=== PATIENT | female | born 1930 | race Caucasian/White ===

== ENCOUNTER → 2016-08-28 | Outpatient (REF) | payer MEDICARE ==
[~2016-08-28] MED LIST: /LINE60TA OR; /WARF25TA; ACET65TA; ACET65TA OR; ALOP5TAB; BABY81CH; BENGAY; BENTYL; Bacid OR; CELE10TA OR; CELE20TA; COLA50CA OR; COUMADIN; FURO40TA2; ISOS30BRAN; ISOS30BRAN OR; LEVOXYL25 MCG; LOPR50TA PO; MAALSUS; METO25TA2; METOP; METOPROLOL SUCCINATE PO; MILKSUS; MILKSUS OR; MIRALEX PO; NYSTATIN TOP; POTA10CA2; POTA10CA2 OR; PRIL20CA OR; RANI75TA2; SENN8.6T5; SYNT50TA OR; TYL325 PO; VITAMIN D50000 UNT PO; ZANT150T PO; ZOCO20TA; ZOCO40TA OR; Zemplar PO; fleets enema PR
[2016-08-28 16:29] LABS: MEAN CORPUSCULAR HGB CONC 33.4 g/dl (32.0-36.5); MEAN CORPUSCULAR VOLUME 95.9 fl (80.0-96.0); RED CELL DISTRIBUTION WIDTH 12.6 % (11.5-14.5); WHITE BLOOD COUNT 9.9 K/mm3 (4.0-10.0)
[2016-08-28 16:58] LABS: ALBUMIN 4.2 GM/DL (3.2-5.2); CALCIUM LEVEL 8.8 MG/DL (8.8-10.2); CREATININE FOR GFR 2.12 MG/DL (0.55-1.02); GLOMERULAR FILTRATION RATE 23.5 (>32); PHOSPHORUS LEVEL 4.8 MG/DL (2.5-4.9); POTASSIUM SERUM 4.7 MEQ/L (3.5-5.1)
== END ==
LOC: M SFHCCLAY 13:55
PROVIDERS: ATTEND Family Medicine
DX: N18.4 Chronic kidney disease, stage 4 (severe) (principal)
CPT/HCPCS: 80069; 83970; 85027; G0463

== ENCOUNTER → 2016-12-30 | Outpatient (REF) | payer MEDICARE ==
[2016-12-31 11:33] LABS: MEAN CORPUSCULAR HEMOGLOBIN 33.3 pg (27.0-33.0); MEAN CORPUSCULAR HGB CONC 33.2 g/dl (32.0-36.5); MEAN CORPUSCULAR VOLUME 100.2 fl (80.0-96.0); PLATELET COUNT, AUTOMATED 290 k/mm3 (150-450); RED CELL DISTRIBUTION WIDTH 12.1 % (11.5-14.5); WHITE BLOOD COUNT 10.7 K/mm3 (4.0-10.0)
[2016-12-31 11:47] LABS: ALBUMIN 3.8 GM/DL (3.2-5.2); ALBUMIN/GLOBULIN RATIO 1.31 (1.00-1.93); BILIRUBIN,TOTAL 0.3 MG/DL (0.2-1.0); CALCIUM LEVEL 8.3 MG/DL (8.8-10.2); CREATININE FOR GFR 2.35 MG/DL (0.55-1.02); GLOMERULAR FILTRATION RATE 20.9 (>32); POTASSIUM SERUM 4.8 MEQ/L (3.5-5.1); TOTAL PROTEIN 6.7 GM/DL (6.4-8.2)
[2016-12-31 12:38] LABS: BASOPHILS 1 % (0-4); EOSINOPHILS 3 % (0-5)
== END ==
LOC: M SFHCCLAY 15:14
PROVIDERS: ATTEND Family Medicine
DX: F32.9 Major depressive disorder, single episode, unspecified (principal); N18.4 Chronic kidney disease, stage 4 (severe)
CPT/HCPCS: 80053; 82306; 83970; 84443; 85025; G0463

== ENCOUNTER → 2016-12-31 | Outpatient (REF) | payer MEDICARE | LOC: M SFHCCLAY 16:17 | PROVIDERS: ATTEND Family Medicine | DX: R32 Unspecified urinary incontinence (principal) ==

== ENCOUNTER → 2017-04-21 | Outpatient (REF) | payer MEDICARE, MEDICAID ==
[2017-04-21 20:46] LABS: ALBUMIN 3.9 GM/DL (3.2-5.2); ALBUMIN/GLOBULIN RATIO 1.44 (1.00-1.93); BILIRUBIN,TOTAL 0.5 MG/DL (0.2-1.0); CALCIUM LEVEL 8.3 MG/DL (8.8-10.2); CREATININE FOR GFR 2.41 MG/DL (0.55-1.02); GLOMERULAR FILTRATION RATE 20.3 (>32); POTASSIUM SERUM 4.7 MEQ/L (3.5-5.1); TOTAL PROTEIN 6.6 GM/DL (6.4-8.2)
== END ==
LOC: M SFHCCLAY 11:16
PROVIDERS: ATTEND Family Medicine
DX: N18.4 Chronic kidney disease, stage 4 (severe) (principal)
CPT/HCPCS: 80053; 83880; G0463

== ENCOUNTER → 2017-07-11 | Outpatient (REF) | payer MEDICARE | LOC: M SFHCCLAY 14:05 | PROVIDERS: ATTEND Family Medicine | DX: N18.4 Chronic kidney disease, stage 4 (severe) (principal); E03.9 Hypothyroidism, unspecified ==

== ENCOUNTER → 2017-07-15 | Outpatient (REF) | payer MEDICARE ==
[2017-07-15 11:20] LABS: BASO # 0.2 10^3/uL (0.0-0.2); BASO % 1.1 % (0.0-1.0); EOS # 0.6 10^3/uL (0.0-0.50); EOS % 4.4 % (0.0-3.0); IMMATURE GRANULOCYTE % 0.4 % (0-0); LYMPH # 2.4 10^3/uL (1.5-4.5); MEAN CORPUSCULAR HEMOGLOBIN 32.9 pg (27.0-33.0); MEAN CORPUSCULAR HGB CONC 33.3 g/dl (32.0-36.5); MEAN CORPUSCULAR VOLUME 98.8 fl (80.0-96.0); MONO % 7.9 % (0.0-5.0); NEUTROPHILS # 8.9 10^3/uL (1.8-7.7); NEUTROPHILS % 68.2 % (36.0-66.0); PLATELET COUNT, AUTOMATED 355 10^3/uL (150-450); RED CELL DISTRIBUTION WIDTH 12.1 % (11.5-14.5); WHITE BLOOD COUNT 13.1 10^3/uL (4.0-10.0)
[2017-07-15 11:55] LABS: ALBUMIN 4.3 GM/DL (3.2-5.2); CALCIUM LEVEL 9.2 MG/DL (8.8-10.2); CREATININE FOR GFR 2.43 MG/DL (0.55-1.02); GLOMERULAR FILTRATION RATE 20.1 (>32); PHOSPHORUS LEVEL 3.6 MG/DL (2.5-4.9)
[2017-07-15 12:08] LABS: POTASSIUM SERUM 5.4 MEQ/L (3.5-5.1)
== END ==
LOC: M SFHCCLAY 09:10
PROVIDERS: ATTEND Family Medicine
DX: N18.4 Chronic kidney disease, stage 4 (severe) (principal); E03.9 Hypothyroidism, unspecified

== ENCOUNTER → 2017-10-17 | Outpatient (REF) | payer MEDICARE ==
[2017-10-17 16:48] LABS: BASO # 0.1 10^3/uL (0.0-0.2); BASO % 0.8 % (0.0-1.0); EOS # 0.4 10^3/uL (0.0-0.50); EOS % 3.5 % (0.0-3.0); HEMATOCRIT 38.2 % (36.0-47.0); HEMOGLOBIN 12.4 g/dl (12.0-16.0); IMMATURE GRANULOCYTE % 0.3 % (0-3.0); LYMPH # 2.2 10^3/uL (1.5-4.5); LYMPH % 17.9 % (24.0-44.0); MEAN CORPUSCULAR HGB CONC 32.5 g/dl (32.0-36.5); MEAN CORPUSCULAR VOLUME 98.5 fl (80.0-96.0); MONO # 1.4 10^3/uL (0.0-0.8); NEUTROPHILS # 8.3 10^3/uL (1.8-7.7); NEUTROPHILS % 66.5 % (36.0-66.0); PLATELET COUNT, AUTOMATED 336 10^3/uL (150-450); RED BLOOD COUNT 3.88 10^6/uL (4.00-5.40); RED CELL DISTRIBUTION WIDTH 12.3 % (11.5-14.5); WHITE BLOOD COUNT 12.5 10^3/uL (4.0-10.0)
[2017-10-17 17:08] LABS: ALBUMIN 3.9 GM/DL (3.2-5.2); ALBUMIN/GLOBULIN RATIO 1.22 (1.00-1.93); ALKALINE PHOSPHATASE 91 U/L (45-117); ALT/SGPT 14 U/L (12-78); ANION GAP 8 MEQ/L (8-16); AST/SGOT 12 U/L (7-37); BILIRUBIN,TOTAL 0.4 MG/DL (0.2-1.0); BLOOD UREA NITROGEN 46 MG/DL (7-18); CALCIUM LEVEL 8.7 MG/DL (8.8-10.2); CARBON DIOXIDE LEVEL 24 MEQ/L (21-32); CHLORIDE LEVEL 110 MEQ/L (98-107); CHOLESTEROL LEVEL 154 MG/DL (<200); CHOLESTEROL RISK RATIO 3.142 (<5); CREATININE FOR GFR 2.64 MG/DL (0.55-1.30); FREE T4 0.99 NG/DL (0.76-1.46); GLOMERULAR FILTRATION RATE 18.2 (>32); GLUCOSE, FASTING 98 MG/DL (70-100); HDL CHOLESTEROL 49 MG/DL (>40); NON-HDL-C 105 MG/DL; SODIUM LEVEL 142 MEQ/L (136-145); TOTAL PROTEIN 7.1 GM/DL (6.4-8.2); TRIGLYCERIDES LEVEL 115 MG/DL (<150)
== END ==
LOC: M SFHCCLAY 13:36
DX: N18.4 Chronic kidney disease, stage 4 (severe) (principal); E78.00 Pure hypercholesterolemia, unspecified; E03.9 Hypothyroidism, unspecified
CPT/HCPCS: 83735

== ENCOUNTER → 2017-12-24 | Outpatient (REF) | payer MEDICARE | LOC: M SFHCCLAY 10:09 | DX: N18.4 Chronic kidney disease, stage 4 (severe) (principal) ==

== ENCOUNTER → 2018-01-09 | Outpatient (REF) | payer MEDICARE ==
[2018-01-09 16:48] LABS: BASO # 0.1 10^3/uL (0.0-0.2); BASO % 0.8 % (0.0-1.0); EOS # 0.5 10^3/uL (0.0-0.50); EOS % 3.9 % (0.0-3.0); HEMATOCRIT 38.6 % (36.0-47.0); HEMOGLOBIN 12.5 g/dl (12.0-15.5); IMMATURE GRANULOCYTE % 0.4 % (0-3.0); LYMPH # 2.6 10^3/uL (1.5-4.5); LYMPH % 21.6 % (24.0-44.0); MEAN CORPUSCULAR HEMOGLOBIN 32.4 pg (27.0-33.0); MEAN CORPUSCULAR HGB CONC 32.4 g/dl (32.0-36.5); MONO # 1.3 10^3/uL (0.0-0.8); MONO % 10.8 % (0.0-5.0); NEUTROPHILS # 7.4 10^3/uL (1.8-7.7); NEUTROPHILS % 62.5 % (36.0-66.0); PLATELET COUNT, AUTOMATED 304 10^3/uL (150-450); RED BLOOD COUNT 3.86 10^6/uL (4.00-5.40); WHITE BLOOD COUNT 11.8 10^3/uL (4.0-10.0)
[2018-01-09 17:24] LABS: ALBUMIN 4.2 GM/DL (3.2-5.2); ALKALINE PHOSPHATASE 94 U/L (45-117); ALT/SGPT 22 U/L (12-78); ANION GAP 12 MEQ/L (8-16); AST/SGOT 17 U/L (7-37); BILIRUBIN,TOTAL 0.3 MG/DL (0.2-1.0); BLOOD UREA NITROGEN 35 MG/DL (7-18); CALCIUM LEVEL 8.4 MG/DL (8.8-10.2); CARBON DIOXIDE LEVEL 21 MEQ/L (21-32); CHLORIDE LEVEL 111 MEQ/L (98-107); CREATININE FOR GFR 2.79 MG/DL (0.55-1.30); FREE T4 0.87 NG/DL (0.76-1.46); GLOMERULAR FILTRATION RATE 17.1 (>32); GLUCOSE, FASTING 98 MG/DL (70-100); POTASSIUM SERUM 4.9 MEQ/L (3.5-5.1); SODIUM LEVEL 144 MEQ/L (136-145)
== END ==
LOC: M SFHCCLAY 13:31
DX: N18.4 Chronic kidney disease, stage 4 (severe) (principal); E03.9 Hypothyroidism, unspecified
CPT/HCPCS: 84443

== ENCOUNTER → 2018-07-13 | Outpatient (CLI) | payer MEDICARE ==
--- NOTE | 2018-07-13 20:57 | REP ---
Duplex carotid sonography: History: Right endarterectomy May. Left endarterectomy and under remotely. Comparison study September 12, 2010. Findings: Antegrade flow was observed in both vertebral arteries. Right carotid: The right common carotid artery shows diffuse vessel wall thickening. Arterial wall thickening continues in the bulb and proximal ICA and proximal ECA. The Doppler study demonstrates elevation of systolic and diastolic velocities in the ICA and systolic velocity in the ECA on the right side. Velocity chart right carotid: Right CCA PSV 130 cm/S, right ICA PSV 443, EDV 68, right ECA PSV 343, right ICA/CCA ratio elevated 3.4. Impression: Diffuse somewhat irregular wall thickening in the CCA, bulb, proximal ICA on the right side uncertain significance post recent endarterectomy. There is evidence of mixed plaquing in the bulb and proximal ICA. Stenotic flow velocities are observed consistent with 80 to 99% category narrowing. Similarly elevated peak systolic flow velocities were observed on the 2010 prior study on the right side. Left carotid: There is diffuse vessel wall thickening on the left as well. Mixed plaquing is observed in the left carotid bulb and proximal ICA. Color flow and spectral Doppler interrogation are unremarkable on the left however. Velocity chart left carotid: Left CCA PSV 144 cm/S, left ICA PSV 88, EDV 23, left ECA PSV 69, left ICA/CCA ratio normal 0.6. Impression: 16 to 49% category narrowing in the left ICA by Doppler velocity criteria. Velocities on the left are essentially unchanged. Electronically Signed by Jeffery Armenta MD 07/13/2018 09:05 P
== END ==
LOC: M RAD 14:54
PROVIDERS: ATTEND Surgery
DX: I65.21 Occlusion and stenosis of right carotid artery (principal)

== ENCOUNTER → 2018-08-24 | Outpatient (REF) | payer MEDICARE ==
[2018-08-25 12:04] LABS: ALBUMIN 4.3 GM/DL (3.2-5.2); BILIRUBIN,TOTAL 0.2 MG/DL (0.2-1.0); CALCIUM LEVEL 8.5 MG/DL (8.8-10.2); CREATININE FOR GFR 2.69 MG/DL (0.55-1.30); FREE T4 0.96 NG/DL (0.76-1.46); GLOMERULAR FILTRATION RATE 17.8 (>32); POTASSIUM SERUM 5.2 MEQ/L (3.5-5.1); THYROID STIMULATING HORMONE 3.76 uIU/ML (0.358-3.740); TOTAL PROTEIN 7.1 GM/DL (6.4-8.2)
== END ==
LOC: M SFHCCLAY 15:30
PROVIDERS: ATTEND Family Medicine
DX: N18.4 Chronic kidney disease, stage 4 (severe) (principal); E03.9 Hypothyroidism, unspecified
CPT/HCPCS: 36415; 80053; 84439; 84443; G0463

== ENCOUNTER → 2018-10-16 | Outpatient (REF) | payer MEDICARE ==
[~2018-10-16] MED LIST changes: -/LINE60TA OR; -/WARF25TA; +COUM1TAB18; +ZYVO100T OR
[2018-10-16 17:20] LABS: BASO # 0.1 10^3/uL (0.0-0.2); BASO % 1.3 % (0.0-1.0); EOS # 0.6 10^3/uL (0.0-0.50); EOS % 5.3 % (0.0-3.0); HEMOGLOBIN 12.4 g/dl (12.0-15.5); LYMPH # 2.2 10^3/uL (1.5-4.5); LYMPH % 21.1 % (24.0-44.0); MEAN CORPUSCULAR HEMOGLOBIN 32.3 pg (27.0-33.0); MEAN CORPUSCULAR HGB CONC 31.8 g/dl (32.0-36.5); MEAN CORPUSCULAR VOLUME 101.6 fl (80.0-96.0); MONO # 1.2 10^3/uL (0.0-0.8); MONO % 11.4 % (0.0-5.0); NEUTROPHILS # 6.3 10^3/uL (1.8-7.7); NEUTROPHILS % 60.5 % (36.0-66.0); PLATELET COUNT, AUTOMATED 303 10^3/uL (150-450); RED BLOOD COUNT 3.84 10^6/uL (4.00-5.40); WHITE BLOOD COUNT 10.4 10^3/uL (4.0-10.0)
[2018-10-16 17:23] LABS: BILIRUBIN,TOTAL 0.4 MG/DL (0.2-1.0); CALCIUM LEVEL 8.9 MG/DL (8.8-10.2); CREATININE FOR GFR 2.92 MG/DL (0.55-1.30); FREE T4 0.99 NG/DL (0.76-1.46); GLOMERULAR FILTRATION RATE 16.2 (>32); PTH INTACT 196.3 PG/ML (18.5-88.0); THYROID STIMULATING HORMONE 1.72 uIU/ML (0.358-3.740); TOTAL PROTEIN 6.7 GM/DL (6.4-8.2)
== END ==
LOC: M SFHCCLAY 10:52
PROVIDERS: ATTEND Family Medicine
DX: R53.81 Other malaise (principal); E03.9 Hypothyroidism, unspecified; N18.4 Chronic kidney disease, stage 4 (severe)
CPT/HCPCS: 80053; 83970; 84439; 84443; 85025; G0463

== ENCOUNTER → 2018-12-01 | Outpatient (REF) | payer MEDICARE ==
[2018-12-01 16:48] LABS: CREATININE FOR GFR 2.33 MG/DL (0.55-1.30); POTASSIUM SERUM 4.9 MEQ/L (3.5-5.1)
== END ==
LOC: M SFHCCLAY 09:49
PROVIDERS: ATTEND Family Medicine
DX: N18.4 Chronic kidney disease, stage 4 (severe) (principal)

== ENCOUNTER → 2019-02-22 | Outpatient (REF) | payer MEDICARE | LOC: M SFHCCLAY 12:25 | PROVIDERS: ATTEND Family Medicine | DX: N18.4 Chronic kidney disease, stage 4 (severe) (principal); Z53.8 Procedure and treatment not carried out for other reasons ==

== ENCOUNTER → 2019-03-04 | Outpatient (REF) | payer MEDICARE ==
[2019-03-04 13:56] LABS: ALBUMIN 3.4 GM/DL (3.2-5.2); BILIRUBIN,TOTAL 0.3 MG/DL (0.2-1.0); CALCIUM LEVEL 8.7 MG/DL (8.8-10.2); CREATININE FOR GFR 2.28 MG/DL (0.55-1.30); GLOMERULAR FILTRATION RATE 21.5 (>32); POTASSIUM SERUM 4.3 MEQ/L (3.5-5.1); TOTAL PROTEIN 6.3 GM/DL (6.4-8.2)
== END ==
LOC: M SFHCCLAY 09:36
PROVIDERS: ATTEND Family Medicine
DX: N18.4 Chronic kidney disease, stage 4 (severe) (principal)

== ENCOUNTER 2019-03-12 15:52 | Inpatient (IN) | payer MEDICARE ==
[~2019-03-12] VITALS: Ht 154.9 cm; Wt 52.7 kg
[2019-03-12] MEDS ORDERED: ISOS30TA4 PO (16:48)
[2019-03-12] MEDS ORDERED: REME15TA PO (16:48)
[2019-03-12] MEDS ORDERED: PARI1CAP3 PO (16:48)
[2019-03-12] MEDS ORDERED: FAMO1TAB11 PO (16:48)
[2019-03-12] MEDS ORDERED: QUET5TAB PO (16:48)
[2019-03-12] MEDS ORDERED: SUCR1TAB56 PO (16:48)
[2019-03-12] MEDS ORDERED: ASPI-524 PO (16:48)
[2019-03-12] MEDS ORDERED: BUSP5TA PO (16:48)
[2019-03-12] MEDS ORDERED: ESOM40CA35 PO (16:48)
[2019-03-12] MEDS ORDERED: ASPI81TA85 PO (16:48)
[2019-03-12] MEDS ORDERED: LEVO50TA5 PO (16:48)
[2019-03-12] MEDS ORDERED: METO1TAB7 PO (16:48)
[2019-03-12] MEDS ORDERED: SIMV40TA2 (16:48)
--- NOTE | 2019-03-12 17:17 | REPVR ---
EXAM: CT Head Without Contrast EXAM DATE/TIME: 03/12/2019 5:03 PM CLINICAL HISTORY: 88 years old, female; Altered mental status/memory loss TECHNIQUE: Imaging protocol: Computed tomography images of the head without contrast. Radiation optimization: All CT scans at this facility use at least one of these dose optimization techniques: automated exposure control; mA and/or kV adjustment per patient size (includes targeted exams where dose is matched to clinical indication); or iterative reconstruction. COMPARISON: No relevant prior studies available. FINDINGS: Brain: There is diffuse volume loss. There is white matter lucency indicating chronic microvascular disease. There are small old basal ganglia and white matter lacunar infarcts. There is no acute infarct. There is no hemorrhage or extra-axial collection. There is no mass. Ventricles: Normal. No ventriculomegaly. Bones/joints: Unremarkable. No acute fracture. Sinuses: Visualized sinuses are unremarkable. No fluid levels. Mastoid air cells: Visualized mastoid air cells are well aerated. No mastoid effusion. Soft tissues: Unremarkable. Vasculature: There are carotid and vertebral artery calcifications. IMPRESSION: 1. There is chronic microvascular disease with small lacunar infarcts. 2. No acute intracranial lesion or injury. Electronically signed by: Alirio Boothe On 03/12/2019 17:16:55 PM
[2019-03-12 17:32] LABS: BASO # 0.1 10^3/uL (0.0-0.2); BASO % 0.9 % (0.0-1.0); EOS # 0.2 10^3/uL (0.0-0.50); EOS % 1.3 % (0.0-3.0); HEMATOCRIT 36.7 % (36.0-47.0); HEMOGLOBIN 11.9 g/dl (12.0-15.5); LYMPH # 1.9 10^3/uL (1.5-4.5); LYMPH % 13.2 % (24.0-44.0); MEAN CORPUSCULAR HEMOGLOBIN 32.5 pg (27.0-33.0); MEAN CORPUSCULAR HGB CONC 32.4 g/dl (32.0-36.5); MEAN CORPUSCULAR VOLUME 100.3 fl (80.0-96.0); MONO # 1.6 10^3/uL (0.0-0.8); NEUTROPHILS # 10.3 10^3/uL (1.8-7.7); PLATELET COUNT, AUTOMATED 352 10^3/uL (150-450); RED BLOOD COUNT 3.66 10^6/uL (4.00-5.40); WHITE BLOOD COUNT 14.1 10^3/uL (4.0-10.0)
[2019-03-12 18:06] LABS: ALBUMIN 3.1 GM/DL (3.2-5.2); ALT/SGPT 12 U/L (12-78); BILIRUBIN,DIRECT 0.1 MG/DL (0.0-0.2); BILIRUBIN,TOTAL 0.3 MG/DL (0.2-1.0); BLOOD UREA NITROGEN 39 MG/DL (7-18); CALCIUM LEVEL 9.1 MG/DL (8.8-10.2); CARBON DIOXIDE LEVEL 24 MEQ/L (21-32); CHLORIDE LEVEL 109 MEQ/L (98-107); CK-MB VALUE MASS < 1.0 NG/ML (<3.6); CPK CREATINE PHOSPHOKINASE 36 U/L (26-192); CREATININE FOR GFR 2.82 MG/DL (0.55-1.30); GLOMERULAR FILTRATION RATE 16.8 (>32); GLUCOSE, FASTING 143 MG/DL (70-100); MB/CK RELATIVE INDEX 2.78 (< OR =4); POTASSIUM SERUM 5.1 MEQ/L (3.5-5.1); SODIUM LEVEL 143 MEQ/L (136-145); TOTAL PROTEIN 6.6 GM/DL (6.4-8.2); TROPONIN I < 0.02 NG/ML (< 0.10)
--- NOTE | 2019-03-12 18:16 | REP ---
Portable chest x-ray: Two views. History: Altered mental status. Comparison chest x-ray: October 16, 2010. Findings: The patient is rotated slightly to the right. Prior sternotomy wires are seen along with EKG monitoring electrodes. Moderate cardiac enlargement is observed. The heart is somewhat larger than it was in 2011 radiographically. There is blunting of the right lateral pleural angle. Some fissural thickening is noted on the right. Pulmonary vasculature is not increased. There is a granulomatous calcification in the left base. Degenerative changes are seen in the thoracic spine, aorta, and shoulders. Impression: Cardiomegaly. Prior sternotomy. Blunted right pleural angle. Electronically Signed by Jeffery Armenta MD 03/15/2019 08:24 A
[2019-03-12] MEDS ORDERED: cefTRIAXone SOD 1 GM in D5W MINI-BAG PLUS 50 ML IV ONE (18:30)
[2019-03-12] MEDS ORDERED: DSS100CA PO (18:43)
--- NOTE | 2019-03-12 19:24 | HPEPDOC ---
[facility] Medical History & Physical Date of Admission Mar 12, 2019 Date of Service: Mar 13, 2019 Primary Care Physician: Mckinley Mejia M.D. Attending Physician: GILBERT QUISPE MD History and Physical Time of service 1:53 AM CHIEF COMPLAINT: Confusion. This patient is a poor historian and is unable to provide any medical history. The majority of information was obtained through communication with other providers and revision of medical records HISTORY OF PRESENT ILLNESS: Per Dr. Dorsey this is an 80 yr old female with a past medical history of dementia and delusions who was brought in for evaluation because of worsening symptoms. In the ED she was found to have a positive UA and leukocytosis. Nursing staff requested a sitter because the patient was agitated. At the time of my exam, the patient was asleep but when she was woken up, she kept on repeating "I didn't do what they say I did. " She denied having any pain and asked if she could go home. REVIEW OF SYSTEMS: Unable to obtain because the patient has dementia PAST MEDICAL/ SURGICAL HISTORY: 1. Chronic hypertension. 2. IBS. 3. Chronic renal failure. 4. GERD 5. Osteoarthritis 6. Chronic CAD status post CABG 7. Depression. 8. Stroke. 9. Status post right hip replacement. 10. Status post carotid endarterectomy. 11. Status post right distal femur fracture. 11. Hypothyroidism SOCIAL HISTORY: - TOBACCO FAMILY HISTORY: CAD ALLERGIES: Please see below. HOME MEDICATIONS: Please see below. PHYSICAL EXAMINATION: VITAL SIGNS: See below GENERAL APPEARANCE: Disheveled, well-developed, HEENT: Normocephalic, atraumatic CARDIOVASCULAR: Regular rate and rhythm. No murmurs, rubs or gallops LUNGS: clear to auscultation bilaterally on room air ABDOMEN: Soft and nontender MUSCULOSKELETAL: Range of motion intact in upper extremities PSYCHIATRIC: Asleep but easily aroused anxious when awake LABORATORY DATA: See below. IMAGING: CT of the head "IMPRESSION: 1. There is chronic microvascular disease with small lacunar infarcts. 2. No acute intracranial lesion or injury. " Chest x-ray "Impression: Cardiomegaly. Prior sternotomy. Blunted right pleural angle." MICROBIOLOGY: Please see below. ASSESSMENT: Ms. Bergman is an 88-year-old female with a past medical history of CKD 4, and dementia who will be admitted for management of a UTI and MICHAEL on CKD. PLAN: 1. UTI Unable to determine if patient's behavior is worse due to the UTI. She does have mild leukocytosis and the UA findings are consistent with a UTI Plan: Admit to general medical floor/ f/u Ucx, blood Cx and renal function / s witch to Jostin olena (received ceftriaxone in ED) 2 MICHAEL on CKD 4 Baseline creatinine 2.28 today its 2.8 Baseline GFR is in the 20s, today it is 16.8 Renal ultrasound from 2009 was reviewed. The right kidney was 7.7 cm and the left was 7.5. There was no mention of the echogenicity of the kidneys Plan: IV fluids/Follow-up BMP./ avoid NSAIDs, ACEIs, ARBs and other Nephrotoxic drugs/ will not repeat ultrasound this is unlikely to not tolerate the procedure 3. Dementia with behavioral disturbance Plan: continue with home meds / sitter & olanzapine PRN 4 . Macrocytic anemia. Plan: Follow-up CBC and B12 5. Hypothyroidism Plan continue with home meds and follow-up TSH DVT prophylaxis with Heparin Disposition pending clinical course Vital Signs Vital Signs Date Time Temp Pulse Resp B/P (MAP) Pulse Ox O2 Delivery O2 Flow Rate FiO2 03/12/19 19:02 79 97 03/12/19 18:40 154/66 (95) 03/12/19 15:56 98.6 20 Room Air Laboratory Data Labs 24H Laboratory Tests 2 03/12/19 17:15: Immature Granulocyte % (Auto) 0.6, White Blood Count 14.1H, Red Blood Count 3.66L, Hemoglobin 11.9L, Hematocrit 36.7, Mean Corpuscular Volume 100.3H, Mean Corpuscular Hemoglobin 32.5, Mean Corpuscular Hemoglobin Concent 32.4, Red Cell Distribution Width 12.3, Platelet Count 352, Neutrophils (%) (Auto) 73.0H, Lymphocytes (%) (Auto) 13.2L, Monocytes (%) (Auto) 11.0H, Eosinophils (%) (Auto) 1.3, Basophils (%) (Auto) 0.9, Neutrophils # (Auto) 10.3H, Lymphocytes # (Auto) 1.9, Monocytes # (Auto) 1.6H, Eosinophils # (Auto) 0.2, Basophils # (Auto) 0.1, Nucleated Red Blood Cells % (auto) 0.0, Urine Color SATHYA, Urine Appearance TURBIDH, Urine pH 5.0, Urine Specific Rumsey 1.015, Urine Protein 2+H, Urine Glucose (UA) NEGATIVE, Urine Ketones TRACEH, Urine Blood 3+H, Urine Nitrite NEGATIVE, Urine Bilirubin NEGATIVE, Urine Urobilinogen 0.2, Urine Leukocyte Esterase 3+H, Urine WBC (Auto) TNTCH, Urine RBC (Auto) 93H, Urine Hyaline Casts (Auto) 0, Urine Bacteria (Auto) 3+H, Urine Squamous Epithelial Cells 2, Urine Sperm (Auto) , Anion Gap 10, Glomerular Filtration Rate 16.8L, Calcium Level 9.1, Aspartate Amino Transf (AST/SGOT) 8, Alanine Aminotransferase (ALT/SGPT) 12, Alkaline Phosphatase 70, Total Bilirubin 0.3, Direct Bilirubin 0.1, Total Creatine Kinase 36, Creatine Kinase MB < 1.0, Creatine Kinase MB Relative Index 2.78, Troponin I < 0.02, Total Protein 6.6, Albumin 3.1L, Albumin/Globulin Ratio 0.89L, Thyroid Stimulating Hormone (TSH) 2.080 CBC/BMP Laboratory Tests 03/12/19 17:15 Red Blood Count 3.66 L, Mean Corpuscular Volume 100.3 H, Mean Corpuscular Hemoglobin 32.5, Mean Corpuscular Hemoglobin Concent 32.4, Red Cell Distribution Width 12.3, Neutrophils (%) (Auto) 73.0 H, Lymphocytes (%) (Auto) 13.2 L, Monocytes (%) (Auto) 11.0 H, Eosinophils (%) (Auto) 1.3, Basophils (%) (Auto) 0.9, Neutrophils # (Auto) 10.3 H, Lymphocytes # (Auto) 1.9, Monocytes # (Auto) 1.6 H, Eosinophils # (Auto) 0.2, Basophils # (Auto) 0.1 Microbiology Microbiology 03/12/19 Urine Culture, Received Pending Home Medications Scheduled Aspirin (Aspirin) 325 Mg Tablet, 325 MG PO DAILY Buspirone HCl (Buspirone HCl) 5 Mg Tablet, 5 MG PO DAILY TAKES AT NOON Esomeprazole Magnesium (Esomeprazole Magnesium Dr) 40 Mg Capsule.dr, 40 MG PO DAILY Famotidine (Famotidine) 20 Mg Tablet, 20 MG PO QHS Isosorbide Mononitrate (Isosorbide Mononitrate ER) 30 Mg Tab.er.24h, 30 MG PO DAILY Levothyroxine Sodium (Levothyroxine Sodium) 50 Mcg Tablet, 50 MCG PO DAILY Metoprolol Succinate (Metoprolol Succinate) 50 Mg Tab.er.24h, 50 MG PO DAILY Mirtazapine (Remeron) 15 Mg Tablet, 15 MG PO QHS Paricalcitol (Paricalcitol) 1 Mcg Capsule, 1 MCG PO 3XW MON, WED, FRI Quetiapine Fumarate (Quetiapine Fumarate) 50 Mg Tablet, 50 MG PO QHS Sucralfate (Sucralfate) 1 Gm Tablet, 1 GM PO DAILY Scheduled PRN Docusate Sodium (Stool Softener) 100 Mg Capsule, 100 MG PO DAILY PRN for CONSTIPATION Allergies Coded Allergies: Nut Tree (Verified Allergy, Unknown, HIVES, 03/12/19) Penicillins (Verified Allergy, Unknown, 03/12/19) and penicillin cross reactors Sulfa (Sulfonamide Antibiotics) (Verified Allergy, Unknown, 03/12/19) and sulfa cross reactors azithromycin (Verified Allergy, Unknown, 03/12/19) calcitriol (Verified Allergy, Unknown, 03/12/19) doxycycline (Verified Allergy, Unknown, 03/12/19) wheat (Verified Allergy, Unknown, 03/12/19) A-FIB/CHADSVASC A-FIB History Current/History of A-Fib/PAF?: No Current PO Anticoag Therapy: GILBERT Perez MD Mar 12, 2019 19:23
--- NOTE | 2019-03-12 20:24 | ECGEPIP ---
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
[2019-03-12] MEDS: QUEtiapine FUMARATE 50 MG TAB PO SCH (21:00)
[2019-03-12] MEDS: FAMOTIDINE 20 MG TAB PO SCH (21:00)
[2019-03-12] MEDS: MIRTAZAPINE 15 MG TAB PO SCH (21:00)
[2019-03-12] MEDS ORDERED: LevoFLOXacin IV 250 MG in APPROPRIATE DILUENT 1 EA IV SCH (21:00)
[2019-03-12] MEDS: HEPARIN SOD (PORCINE) 5000 UNITS/ML VIAL SC SCH (22:42)
[2019-03-13 07:45] LABS: HEMATOCRIT 34.6 % (36.0-47.0); HEMOGLOBIN 11.6 g/dl (12.0-15.5); MEAN CORPUSCULAR HEMOGLOBIN 32.5 pg (27.0-33.0); MEAN CORPUSCULAR HGB CONC 33.5 g/dl (32.0-36.5); MEAN CORPUSCULAR VOLUME 96.9 fl (80.0-96.0); PLATELET COUNT, AUTOMATED 353 10^3/uL (150-450); RED BLOOD COUNT 3.57 10^6/uL (4.00-5.40); WHITE BLOOD COUNT 14.4 10^3/uL (4.0-10.0)
[2019-03-13 08:28] LABS: CALCIUM LEVEL 8.7 MG/DL (8.8-10.2); CREATININE FOR GFR 2.42 MG/DL (0.55-1.30); GLOMERULAR FILTRATION RATE 20.1 (>32); MAGNESIUM LEVEL 1.8 MG/DL (1.8-2.4); POTASSIUM SERUM 4.6 MEQ/L (3.5-5.1); THYROID STIMULATING HORMONE 3.98 uIU/ML (0.358-3.740)
[2019-03-13] MEDS: HEPARIN SOD (PORCINE) 5000 UNITS/ML VIAL SC SCH ×3 (09:04→20:13)
[2019-03-13] MEDS: METOPROLOL SUCC (TopROL XL) 50MG **XL** TAB PO SCH (09:29)
[2019-03-13] MEDS: LEVOTHYROXINE 50MCG TABLET (0.05MG) PO SCH (09:29)
[2019-03-13] MEDS: ASPIRIN 325 MG TAB PO SCH (09:30)
[2019-03-13] MEDS: ISOSORBIDE MON. (IMDUR) 30 MG XR TAB PO SCH (09:30)
[2019-03-13] MEDS: NS 1,000 ML IV SCH ×2 (09:30→22:49)
[2019-03-13 13:15] VITALS: BP 115/54
[2019-03-13] MEDS: busPIRone 5 MG TAB PO SCH (13:50)
[2019-03-13] MEDS: FAMOTIDINE 20 MG TAB PO SCH (20:13)
[2019-03-13] MEDS: MIRTAZAPINE 15 MG TAB PO SCH (20:13)
[2019-03-13] MEDS: QUEtiapine FUMARATE 50 MG TAB PO SCH (20:13)
[2019-03-13 22:00] VITALS: BP 140/52
[2019-03-14 06:00] VITALS: BP 167/74
[2019-03-14] MEDS ORDERED: NITROFURANTOIN (MACROBID) 100 MG CAP PO SCH (09:00)
--- NOTE | 2019-03-14 09:16 | IPNPDOC ---
Text Note Date of Service The patient was seen on 03/14/19. NOTE Subjective: No any acute events overnight. In the morning patient alert, awake, communicative. She answered my questions. She denies fever, chills, nausea, vomiting, diarrhea or dysuria. Objective: General NAD HEENT: PERRLA, EOMI, NO JVD CV: S1S2 Abd: nontender, nondistended Extremities: No swelling, no edema Neuro: Cranial nerves intact 2-12, follows command, no nuchal rigidity Assessment and plan Patient is 80 years old female with past medical history of dementia, delusions was admitted to the hospital with altered mental status. Patient was found to have UTI with urine culture positive for Escherichia coli. Patient received treatment with IV levofloxacin. After antibiotic sensitivity, was done IV levofloxacin was changed to by mouth Altered mental status Secondary to UTI Patient has dementia Will check TSH Today mental status significantly improved, patient oriented, alert UTI UA was positive for Escherichia coli Patient is allergic to penicillin. Levofloxacin 250 mg twice a day Will repeat UA today MICHAEL Most likely to volume contraction Patient has CKD stage IV Will avoid nephrotoxic agent Continue to monitor improved Dementia with behavioral disturbance Continue home meds Patient is not agitated, does not need sitter Anemia Will check B12, folate, iron panel Hypothyroidism Plan continue with home meds and follow-up TSH DVT prophylaxis with Heparin VS,Fishbone, I+O VS, Fishbone, I+O Vital Signs Date Time Temp Pulse Resp B/P (MAP) Pulse Ox O2 Delivery O2 Flow Rate FiO2 03/14/19 06:00 97.9 82 18 167/74 (105) 97 03/12/19 15:56 Room Air I&O- Last 24 Hours up to 6 AM 03/14/19 06:00 Intake Total 650 ml Output Total 100 ml Balance 550 ml CLEO MENSAH DO Mar 14, 2019 09:16
[2019-03-14] MEDS: METOPROLOL SUCC (TopROL XL) 50MG **XL** TAB PO SCH (10:32)
[2019-03-14] MEDS: ASPIRIN 325 MG TAB PO SCH (10:32)
[2019-03-14] MEDS: ISOSORBIDE MON. (IMDUR) 30 MG XR TAB PO SCH (10:32)
[2019-03-14] MEDS: HEPARIN SOD (PORCINE) 5000 UNITS/ML VIAL SC SCH ×2 (10:33→20:10)
[2019-03-14] MEDS: LEVOTHYROXINE 50MCG TABLET (0.05MG) PO SCH (10:33)
[2019-03-14] MEDS: busPIRone 5 MG TAB PO SCH (12:36)
[2019-03-14] MEDS: ACETAMINOPHEN TAB 650MG DOSE (2X325MG) PO PRN ×2 (12:36→20:10)
[2019-03-14 14:59] VITALS: BP 118/56
[2019-03-14] MEDS: LevoFLOXacin 250 MG TABLET PO SCH (16:23)
--- NOTE | 2019-03-14 18:29 | ECGEPIP ---
[facility] Test Date: 2019-03-14 Pat Name: HOMERO RAMIRES Department: Room: [place] [address] Gender: Female Publicity Person: KIRSTEN : 1930 Requested By: CLEO MENSAH Order Number: [id number] Reading MD: Dave Bonilla Measurements Intervals [place] Rate: 89 P: 235 [place]: 107 QRS: 15 QRSD: 107 T: 156 QT: 369 QTc: 451 Interpretive Statements ECTOPIC ATRIAL RHYTHM WITH SHORT [place] INTERVAL. POSSIBLE JUNCTIONAL RHYTHM ST DEVIATION AND MODERATE T-WAVE ABNORMALITY, CONSIDER ISCHEMIA Last tracing on 03/12/19 AT 17:13 No remarkable changes but slower heart rate Electronically Signed on 03-14-2019 18:29:24 EDT by Dave Bonilla
[2019-03-14 19:08] VITALS: BP 177/80
[2019-03-14] MEDS: FAMOTIDINE 20 MG TAB PO SCH (20:09)
[2019-03-14] MEDS: QUEtiapine FUMARATE 50 MG TAB PO SCH (20:09)
[2019-03-14] MEDS: MIRTAZAPINE 15 MG TAB PO SCH (20:09)
[2019-03-14 20:11] VITALS: BP 144/66
[2019-03-15 05:24] VITALS: BP 178/93
[2019-03-15] MEDS: METOPROLOL SUCC (TopROL XL) 50MG **XL** TAB PO SCH (10:15)
[2019-03-15] MEDS: ASPIRIN 325 MG TAB PO SCH (10:15)
[2019-03-15] MEDS: ISOSORBIDE MON. (IMDUR) 30 MG XR TAB PO SCH (10:15)
[2019-03-15] MEDS: LEVOTHYROXINE 50MCG TABLET (0.05MG) PO SCH (10:15)
[2019-03-15] MEDS: HEPARIN SOD (PORCINE) 5000 UNITS/ML VIAL SC SCH ×2 (10:16→21:49)
[2019-03-15 10:32] LABS: HEMATOCRIT 35.1 % (36.0-47.0); HEMOGLOBIN 11.6 g/dl (12.0-15.5); MEAN CORPUSCULAR HEMOGLOBIN 32.5 pg (27.0-33.0); MEAN CORPUSCULAR VOLUME 98.3 fl (80.0-96.0); PLATELET COUNT, AUTOMATED 354 10^3/uL (150-450); RED BLOOD COUNT 3.57 10^6/uL (4.00-5.40)
[2019-03-15 10:57] LABS: CREATININE FOR GFR 2.4 MG/DL (0.55-1.30); GLOMERULAR FILTRATION RATE 20.3 (>32); MAGNESIUM LEVEL 1.9 MG/DL (1.8-2.4); POTASSIUM SERUM 4.7 MEQ/L (3.5-5.1)
--- NOTE | 2019-03-15 11:08 | REP ---
LEFT KNEE, COMPLETE: 03/14/2019. Clinical history: Possible fracture. Findings: Four views are provided, the patient could not position for the sunrise view. Distal femur and condyles are without fracture or focal lesion. There is no narrowing of the medial or lateral compartments. Spurs in the tibial spines noted. Proximal tibiofibular articulation intact. Patella without fracture or subluxation. Some soft tissue swelling about the knee but no visible or displaced fracture. I cannot define a definite joint effusion, loose body, osteochondral lesion or other focal abnormality. There are surgical clips in the medial aspect of the soft tissues peripheral to the knee. Heavy calcific plaque along the femoral popliteal and branch arteries in the calf. Impression: 1. Some soft tissue swelling without visible or displaced fracture, joint effusion or other acute finding. 2. Heavy atherosclerotic plaque throughout arteries of the lower thigh to upper calf. Electronically Signed by Ruddy Diane MD 03/15/2019 11:15 A
[2019-03-15 11:37] LABS: FOLATE 10.9 NG/ML (>5.4)
[2019-03-15] MEDS: busPIRone 5 MG TAB PO SCH (13:12)
[2019-03-15 14:00] VITALS: BP 130/59
--- NOTE | 2019-03-15 18:39 | ECGEPIP ---
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
--- NOTE | 2019-03-15 19:43 | IPNPDOC ---
Text Note Date of Service The patient was seen on 03/15/19. NOTE Subjective: No any acute events overnight. In the morning patient confused and agitated. She tried to hit IV nurse She denies fever, chills, nausea, vomiting, diarrhea or dysuria. Objective: General NAD HEENT: PERRLA, EOMI, NO JVD CV: S1S2 Abd: nontender, nondistended Extremities: No swelling, no edema Neuro: Cranial nerves intact 2-12, no nuchal rigidity Assessment and plan Patient is 80 years old female with past medical history of dementia, delusions was admitted to the hospital with altered mental status. Patient was found to have UTI with urine culture positive for Escherichia coli. Patient received treatment with IV levofloxacin. After antibiotic sensitivity, was done IV levofloxacin was changed to by mouth Altered mental status Secondary to UTI Patient has dementia TSH within normal limit Mental status is frequently today Frequent reorientation UTI UA was positive for Escherichia coli Patient is allergic to penicillin. Levofloxacin 250 mg twice a day Most likely to volume contraction Patient has CKD stage IV Will avoid nephrotoxic agent Continue to monitor improved Dementia with behavioral disturbance Continue home meds Anemia Normocytic, most likely anemia of chronic diseases Hypothyroidism Plan continue with home meds and follow-up TSH DVT prophylaxis with Heparin VS,Fishbone, I+O VS, Fishbone, I+O Laboratory Tests 03/15/19 10:18 Calcium Level 9.0 03/15/19 10:19 Red Blood Count 3.57 L, Mean Corpuscular Volume 98.3 H, Mean Corpuscular Hemoglobin 32.5, Mean Corpuscular Hemoglobin Concent 33.0, Red Cell Distribution Width 12.1 Vital Signs Date Time Temp Pulse Resp B/P (MAP) Pulse Ox O2 Delivery O2 Flow Rate FiO2 03/15/19 14:00 98.0 71 18 130/59 (82) 97 03/12/19 15:56 Room Air I&O- Last 24 Hours up to 6 AM 03/15/19 06:00 Intake Total 200 ml Output Total 400 ml Balance -200 ml CLEO MENSAH DO Mar 15, 2019 19:43
[2019-03-15 20:39] VITALS: BP 161/81
[2019-03-15] MEDS: QUEtiapine FUMARATE 50 MG TAB PO SCH (21:49)
[2019-03-15] MEDS: MIRTAZAPINE 15 MG TAB PO SCH (21:49)
[2019-03-15] MEDS: FAMOTIDINE 20 MG TAB PO SCH (21:49)
[2019-03-15] MEDS: ACETAMINOPHEN TAB 650MG DOSE (2X325MG) PO PRN (21:50)
[2019-03-15] MEDS: OLANZapine INTRAMUSCULAR 10 MG VIAL (S0166) IM PRN (22:55)
[2019-03-16] MEDS: LevoFLOXacin 250 MG TABLET PO SCH (06:45)
[2019-03-16 06:51] VITALS: BP 144/69
[2019-03-16] MEDS: ASPIRIN 325 MG TAB PO SCH (08:34)
[2019-03-16] MEDS: ISOSORBIDE MON. (IMDUR) 30 MG XR TAB PO SCH (08:34)
[2019-03-16] MEDS: LEVOTHYROXINE 50MCG TABLET (0.05MG) PO SCH (08:34)
[2019-03-16] MEDS: METOPROLOL SUCC (TopROL XL) 50MG **XL** TAB PO SCH (08:34)
[2019-03-16] MEDS: HEPARIN SOD (PORCINE) 5000 UNITS/ML VIAL SC SCH ×2 (08:35→21:46)
[2019-03-16 09:14] LABS: CALCIUM LEVEL 9.1 MG/DL (8.8-10.2); CREATININE FOR GFR 2.37 MG/DL (0.55-1.30); GLOMERULAR FILTRATION RATE 20.6 (>32); POTASSIUM SERUM 4.3 MEQ/L (3.5-5.1)
[2019-03-16 09:35] LABS: HEMATOCRIT 36.2 % (36.0-47.0); MEAN CORPUSCULAR HEMOGLOBIN 32.6 pg (27.0-33.0); MEAN CORPUSCULAR HGB CONC 33.1 g/dl (32.0-36.5); MEAN CORPUSCULAR VOLUME 98.4 fl (80.0-96.0); PLATELET COUNT, AUTOMATED 406 10^3/uL (150-450); RED BLOOD COUNT 3.68 10^6/uL (4.00-5.40); WHITE BLOOD COUNT 15.8 10^3/uL (4.0-10.0)
[2019-03-16] MEDS: busPIRone 5 MG TAB PO SCH (11:46)
--- NOTE | 2019-03-16 13:12 | IPNPDOC ---
Text Note Date of Service The patient was seen on 03/16/19. NOTE NOTE Subjective: No any acute events overnight. In the morning patient was angry and agitated. She states that she doesn't want to be in the hospital. She was oriented in time and place. She denies fever, chills, nausea, vomiting, diarrhea or dysuria. Objective: General NAD HEENT: PERRLA, EOMI, NO JVD CV: S1S2 Abd: nontender, nondistended Extremities: No swelling, no edema Neuro: Cranial nerves intact 2-12, no nuchal rigidity Assessment and plan Patient is 80 years old female with past medical history of dementia, delusions was admitted to the hospital with altered mental status. Patient was found to have UTI with urine culture positive for Escherichia coli. Patient received treatment with IV levofloxacin. After antibiotic sensitivity, was done IV levofloxacin was changed to by mouth during hospital stay patient developed delirium episode. Medication history was optimized. Await placement. Altered mental status Resolved Secondary to UTI Patient has dementia TSH within normal limit Mental status improved Frequent reorientation I changed ranitidine to omeprazole. H2 inhibitors can potentially contribute in developing of delirium. UTI UA was positive for Escherichia coli Patient is allergic to penicillin. Levofloxacin 250 mg twice day Most likely to volume contraction Patient has CKD stage IV Will avoid nephrotoxic agent Continue to monitor improved Dementia with behavioral disturbance Continue home meds Anemia Normocytic, most likely anemia of chronic diseases Hypothyroidism Plan continue with home meds and follow-up TSH DVT prophylaxis with Heparin VS,Fishbone, I+O VS, Fishbone, I+O Laboratory Tests 03/16/19 08:38 Calcium Level 9.1 03/16/19 09:09 Red Blood Count 3.68 L, Mean Corpuscular Volume 98.4 H, Mean Corpuscular Hemoglobin 32.6, Mean Corpuscular Hemoglobin Concent 33.1, Red Cell Distribution Width 12.5 Vital Signs Date Time Temp Pulse Resp B/P (MAP) Pulse Ox O2 Delivery O2 Flow Rate FiO2 03/16/19 08:34 75 144/69 03/16/19 06:51 97.7 18 98 03/12/19 15:56 Room Air I&O- Last 24 Hours up to 6 AM 03/16/19 06:00 Intake Total 350 ml Output Total 200 ml Balance 150 ml CLEO MENSAH DO Mar 16, 2019 13:12
[2019-03-16] MEDS: OLANZapine INTRAMUSCULAR 10 MG VIAL (S0166) IM PRN (19:25)
[2019-03-16] MEDS: ACETAMINOPHEN TAB 650MG DOSE (2X325MG) PO PRN (21:43)
[2019-03-16] MEDS: QUEtiapine FUMARATE 50 MG TAB PO SCH (21:44)
[2019-03-16] MEDS: MIRTAZAPINE 15 MG TAB PO SCH (21:44)
[2019-03-17] MEDS: HEPARIN SOD (PORCINE) 5000 UNITS/ML VIAL SC SCH ×3 (09:00→19:56)
[2019-03-17] MEDS: ASPIRIN 325 MG TAB PO SCH (09:12)
[2019-03-17] MEDS: METOPROLOL SUCC (TopROL XL) 50MG **XL** TAB PO SCH (09:12)
[2019-03-17] MEDS: ISOSORBIDE MON. (IMDUR) 30 MG XR TAB PO SCH (09:12)
[2019-03-17] MEDS: OMEPRAZOLE 20 MG CAP PO SCH (09:12)
[2019-03-17] MEDS: LEVOTHYROXINE 50MCG TABLET (0.05MG) PO SCH (09:13)
[2019-03-17] MEDS: busPIRone 5 MG TAB PO SCH (12:51)
[2019-03-17 15:11] VITALS: BP 109/58
[2019-03-17] MEDS: MIRTAZAPINE 15 MG TAB PO SCH (19:55)
[2019-03-17] MEDS: QUEtiapine FUMARATE 50 MG TAB PO SCH (19:55)
--- NOTE | 2019-03-17 21:02 | IPNPDOC ---
Subjective Date Seen The patient was seen on 03/17/19. Subjective Chief Complaint/HPI Admitted for UTI and dementia with aggressive behavior General: Reports: Other Symptoms (No complain,wants to leave this hospital,patient with dementia.) Eyes: Denies: Pain, Vision change Pulmonary: Denies: Dyspnea, Cough Cardiovascular: Denies: Chest Pain, Palpitations, Orthopnea, Paroxysmal Noc. Dyspnea, Lt Headedness Gastrointestinal: Denies: Nausea, Vomiting, Abdominal Pain, Diarrhea, Constipation Musculoskeletal: Denies: Neck Pain, Back Pain, Joint Pain, Muscle Pain, Spasms Psych: Reports: Other Psych (dementia with aggressive behavior) Objective Physical Examination General Exam: Positive: Alert, Other (copperative although on and off agitated) Eye Exam: Positive: PERRLA, Conjunctiva & lids normal ENT Exam: Positive: Atraumatic, Mucous membr. moist/pink, Pharynx Normal Neck Exam: Positive: Supple Chest Exam: Positive: Clear to auscultation, Normal air movement Heart Exam: Positive: Rate Normal, Normal S1, Normal S2 Abdomen Exam: Positive: Normal bowel sounds, Soft Extremity Exam: Positive: Normal pulses; Negative: Clubbing, Cyanosis, Edema Neuro Exam: Positive: Other (awake,alert,moving extremities and follows commands) Assessment /Plan Problems (1) Urinary tract infection Status: Acute Problem Text: On levaquin 250 mg po q 4 hrs.Ucx grew E.coli.There increase of wbc today,will repeat and if still up,will adjust atbx or repeat Ucx (2) 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 (3) CKD (chronic kidney disease), stage IV Status: Acute Response to Treatment: Improving Problem Text: Continue to monitor.Avoid nephrotoxic agents (4) Hypothyroidism Status: Chronic Response to Treatment: Stable Problem Text: Stable.TSH 2.080 Plan/VTE VTE Prophylaxis Ordered?: Yes (on heparin) Plan IVF: Continue Anticipated Discharge: Other Anticipated D/C (To be determined) Disposition To be determined VS, I&O, 24H, Fishbone Vital Signs/I&O Vital Signs Date Time Temp Pulse Resp B/P (MAP) Pulse Ox O2 Delivery O2 Flow Rate FiO2 03/17/19 15:11 98.4 88 16 109/58 (75) 96 03/12/19 15:56 Room Air I&O- Last 24 Hours up to 6 AM 03/17/19 06:00 Intake Total 880 ml Output Total 400 ml Balance 480 ml Laboratory Data Microbiology Microbiology 03/14/19 Urine Culture - Final, Complete 03/12/19 Urine Culture - Final, Complete Escherichia Coli BHUMI SYED MD Mar 17, 2019 21:02
[2019-03-17 22:00] VITALS: BP 136/74
[2019-03-18 06:00] VITALS: BP 133/74
[2019-03-18] MEDS: LevoFLOXacin 250 MG TABLET PO SCH (06:32)
[2019-03-18 08:45] VITALS: BP 110/56
[2019-03-18] MEDS: ACETAMINOPHEN TAB 650MG DOSE (2X325MG) PO PRN ×2 (10:35→20:33)
[2019-03-18] MEDS: OMEPRAZOLE 20 MG CAP PO SCH (10:35)
[2019-03-18] MEDS: ASPIRIN 325 MG TAB PO SCH (10:35)
[2019-03-18] MEDS: LEVOTHYROXINE 50MCG TABLET (0.05MG) PO SCH (10:36)
[2019-03-18] MEDS: METOPROLOL SUCC (TopROL XL) 50MG **XL** TAB PO SCH (10:37)
[2019-03-18] MEDS: ISOSORBIDE MON. (IMDUR) 30 MG XR TAB PO SCH (10:37)
[2019-03-18] MEDS: HEPARIN SOD (PORCINE) 5000 UNITS/ML VIAL SC SCH ×2 (10:56→20:20)
[2019-03-18] MEDS: busPIRone 5 MG TAB PO SCH (11:50)
--- NOTE | 2019-03-18 13:16 | IPNPDOC ---
Date Seen The patient was seen on 03/18/19. Progress Note SUBJECTIVE: reports that she thinks staff is attempting to "kill" her here OBJECTIVE PHYSICAL EXAMINATION: VITAL SIGNS: Please see below. GENERAL: NAD EXTREMITIES: no c/c/e NEUROLOGICAL: oriented to person place date/year PSYCHOLOGICAL: easily agitated LABORATORY DATA, IMAGING STUDIES, MICROBIOLOGY: Please see below. ASSESSMENT AND PLAN: (1) Urinary tract infection Status: Acute Problem Text: On levaquin 250 mg po q 4 hrs.Ucx grew E.coli. 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 awaiting placement to locked dementia uit (3) CKD (chronic kidney disease), stage IV Status: Acute Response to Treatment: Improving Problem Text: Continue to monitor.Avoid nephrotoxic agents (4) Hypothyroidism Status: Chronic Response to Treatment: Stable Problem Text: Stable.TSH 2.080 DISPOSITION: awaiting dc to locked dementia unit VS, I&O, 24H, Fishbone Vital Signs/I&O Vital Signs Date Time Temp Pulse Resp B/P (MAP) Pulse Ox O2 Delivery O2 Flow Rate FiO2 03/18/19 10:37 110/56 03/18/19 08:45 97.1 84 14 98 03/12/19 15:56 Room Air I&O- Last 24 Hours up to 6 AM 03/18/19 06:00 Intake Total 1320 ml Output Total 100 ml Balance 1220 ml Laboratory Data Microbiology Microbiology 03/14/19 Urine Culture - Final, Complete 03/12/19 Urine Culture - Final, Complete Escherichia Coli HERMELINDO EL MD Mar 18, 2019 13:16
[2019-03-18 14:00] VITALS: BP 126/50
[2019-03-18] MEDS: QUEtiapine FUMARATE 50 MG TAB PO SCH (20:19)
[2019-03-18] MEDS: MIRTAZAPINE 15 MG TAB PO SCH (20:19)
[2019-03-19 06:09] VITALS: BP 127/68
[2019-03-19 07:22] LABS: HEMATOCRIT 34.5 % (36.0-47.0); HEMOGLOBIN 11.2 g/dl (12.0-15.5); MEAN CORPUSCULAR HEMOGLOBIN 32.3 pg (27.0-33.0); MEAN CORPUSCULAR HGB CONC 32.5 g/dl (32.0-36.5); MEAN CORPUSCULAR VOLUME 99.4 fl (80.0-96.0); PLATELET COUNT, AUTOMATED 414 10^3/uL (150-450); RED BLOOD COUNT 3.47 10^6/uL (4.00-5.40); WHITE BLOOD COUNT 11.8 10^3/uL (4.0-10.0)
[2019-03-19 07:50] LABS: CALCIUM LEVEL 9.1 MG/DL (8.8-10.2); CREATININE FOR GFR 2.43 MG/DL (0.55-1.30); POTASSIUM SERUM 4.7 MEQ/L (3.5-5.1)
[2019-03-19] MEDS: ASPIRIN 325 MG TAB PO SCH (09:03)
[2019-03-19] MEDS: METOPROLOL SUCC (TopROL XL) 50MG **XL** TAB PO SCH (09:04)
[2019-03-19] MEDS: predniSONE 20 MG TAB PO SCH (09:04)
[2019-03-19] MEDS: ISOSORBIDE MON. (IMDUR) 30 MG XR TAB PO SCH (09:04)
[2019-03-19] MEDS: LEVOTHYROXINE 50MCG TABLET (0.05MG) PO SCH (09:04)
[2019-03-19] MEDS: OMEPRAZOLE 20 MG CAP PO SCH (09:04)
[2019-03-19] MEDS: HEPARIN SOD (PORCINE) 5000 UNITS/ML VIAL SC SCH ×2 (09:04→20:01)
[2019-03-19 10:00] VITALS: BP 110/48
[2019-03-19] MEDS: busPIRone 5 MG TAB PO SCH (12:20)
[2019-03-19 14:00] VITALS: BP 113/48
--- NOTE | 2019-03-19 16:05 | IPN ---
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 She says that she has had this for about a week and has not received any treatment. She rates the pain as 6 out of 10 at all times and when she attempts to flex the joint it increases to 8 out of 10. 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 She seems to be agreeable and compliant this morning with her medications. She is pleasant, answering questions, and agreeing to her physical examination. She otherwise denies any other complaints overnight. No fever. No chills. Denies nausea or vomiting, diarrhea, abdominal pain. She is eating well. She is sleeping well at night. No recent falls. PHYSICAL EXAMINATION: VITAL SIGNS: Temperature 97.8, pulse 76, respiratory rate 18, blood pressure 127/68, 96% on room air. GENERAL: The patient is awake, alert and oriented to herself only. There is no respiratory distress or conversational dyspnea. Face is symmetric. Poor dentition with missing teeth. No cervical lymphadenopathy or thyromegaly. Lungs are clear to auscultation. No wheezing, rales or rhonchi. Heart: S1, S2. Sinus rhythm. Abdomen is soft, nontender, nondistended. Positive bowel sounds times four quadrants. No rebound, guarding or hepatosplenomegaly. Extremities: No cyanosis, clubbing or pitting edema in bilateral lower extremities. 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 LABORATORY DATA: 03/19/2019: Complete blood count (CBC) and metabolic panel have been reviewed. ASSESSMENT AND PLAN: This is an 88-year-old female with a history of chronic hypertension, irritable bowel syndrome, chronic kidney disease stage III, reflux, coronary artery disease, coronary artery bypass graft (CABG), depression, CVA, osteoarthritis, status post right hip replacement, carotid endarterectomy, right distal femoral fracture, hypothyroidism, who was admitted due to worsening paranoia due to dementia. The patient is awaiting placement to a locked dementia unit. She was subsequently found to have a urinary tract infection (UTI) that was present on admission with mild leukocytosis and acute encephalopathy. Acute issues: 1. Acute gout flare. Due to chronic kidney disease stage III and risk of worsening renal failure, the patient will be treated with short course of prednisone 20 mg starting today. 2. Acute kidney injury and chronic kidney disease with GFR of 20.6. Avoiding nephrotoxins and renally dosing all medications. Appears to be stable at this time. Does not have any hyperkalemia or metabolic acidosis or any signs of fluid overload. 3. Acute metabolic encephalopathy with chronic dementia with delusional features and behavioral disturbance with paranoia. The patient is awaiting placement to a locked dementia unit. Urinary tract infection (UTI) has been treated with 3 days of renally dosed Levaquin. 4. Urinary tract infection secondary to Escherichia (E) coli . Treated with a full course of Levaquin renally dosed every 48 hours, 250 mg. Repeat urine culture on 03/14/2019 shows no growth. Appears to have resolved. 5. Reflux disease. On chronic Prilosec 20 mg daily. 6. Hypertension. On isosorbide and metoprolol 30 mg and 50 mg, respectively. 7. Senile dementia with advancing behavioral disturbance. On Zyprexa and BuSpar, Remeron for sleep and Seroquel 50 at night. 8. Deep vein thrombosis (DVT) prophylaxis. On subcutaneous heparin 5000 units every 12 hours. DISPOSITION: The patient is currently awaiting a dementia unit placement.
[2019-03-19] MEDS: ACETAMINOPHEN TAB 650MG DOSE (2X325MG) PO PRN (20:01)
[2019-03-19] MEDS: MIRTAZAPINE 15 MG TAB PO SCH (20:01)
[2019-03-19] MEDS: QUEtiapine FUMARATE 50 MG TAB PO SCH (20:01)
[2019-03-20 06:10] LABS: HEMATOCRIT 34.3 % (36.0-47.0); HEMOGLOBIN 10.9 g/dl (12.0-15.5); MEAN CORPUSCULAR HEMOGLOBIN 31.3 pg (27.0-33.0); MEAN CORPUSCULAR HGB CONC 31.8 g/dl (32.0-36.5); MEAN CORPUSCULAR VOLUME 98.6 fl (80.0-96.0); PLATELET COUNT, AUTOMATED 432 10^3/uL (150-450); RED BLOOD COUNT 3.48 10^6/uL (4.00-5.40)
[2019-03-20 06:34] LABS: CREATININE FOR GFR 2.56 MG/DL (0.55-1.30); GLOMERULAR FILTRATION RATE 18.8 (>32); MAGNESIUM LEVEL 2.1 MG/DL (1.8-2.4); POTASSIUM SERUM 4.8 MEQ/L (3.5-5.1)
[2019-03-20 06:45] VITALS: BP 147/73
[2019-03-20] MEDS: HEPARIN SOD (PORCINE) 5000 UNITS/ML VIAL SC SCH ×2 (09:02→20:59)
[2019-03-20] MEDS: OMEPRAZOLE 20 MG CAP PO SCH (09:02)
[2019-03-20] MEDS: ASPIRIN 325 MG TAB PO SCH (09:02)
[2019-03-20] MEDS: predniSONE 20 MG TAB PO SCH (09:02)
[2019-03-20] MEDS: METOPROLOL SUCC (TopROL XL) 50MG **XL** TAB PO SCH (09:02)
[2019-03-20] MEDS: LEVOTHYROXINE 50MCG TABLET (0.05MG) PO SCH (09:02)
[2019-03-20] MEDS: ISOSORBIDE MON. (IMDUR) 30 MG XR TAB PO SCH (09:03)
[2019-03-20] MEDS: ACETAMINOPHEN TAB 650MG DOSE (2X325MG) PO PRN ×2 (10:39→20:59)
[2019-03-20 10:40] VITALS: BP 122/57
[2019-03-20] MEDS: busPIRone 5 MG TAB PO SCH (12:07)
[2019-03-20] MEDS: QUEtiapine FUMARATE 50 MG TAB PO SCH (20:59)
[2019-03-20] MEDS: MIRTAZAPINE 15 MG TAB PO SCH (20:59)
[2019-03-20 22:00] VITALS: BP 162/81
[2019-03-21 05:56] LABS: HEMATOCRIT 35.3 % (36.0-47.0); HEMOGLOBIN 11.1 g/dl (12.0-15.5); MEAN CORPUSCULAR HEMOGLOBIN 32.1 pg (27.0-33.0); MEAN CORPUSCULAR HGB CONC 31.4 g/dl (32.0-36.5); PLATELET COUNT, AUTOMATED 408 10^3/uL (150-450); RED BLOOD COUNT 3.46 10^6/uL (4.00-5.40)
[2019-03-21 06:00] VITALS: BP 161/80
[2019-03-21 06:34] LABS: CALCIUM LEVEL 8.9 MG/DL (8.8-10.2); CREATININE FOR GFR 2.38 MG/DL (0.55-1.30); GLOMERULAR FILTRATION RATE 20.5 (>32); MAGNESIUM LEVEL 2.1 MG/DL (1.8-2.4); POTASSIUM SERUM 4.5 MEQ/L (3.5-5.1)
[2019-03-21] MEDS: LEVOTHYROXINE 50MCG TABLET (0.05MG) PO SCH (09:01)
[2019-03-21] MEDS: METOPROLOL SUCC (TopROL XL) 50MG **XL** TAB PO SCH (09:01)
[2019-03-21] MEDS: ASPIRIN 325 MG TAB PO SCH (09:01)
[2019-03-21] MEDS: predniSONE 20 MG TAB PO SCH (09:01)
[2019-03-21] MEDS: HEPARIN SOD (PORCINE) 5000 UNITS/ML VIAL SC SCH ×2 (09:04→20:36)
[2019-03-21] MEDS: OMEPRAZOLE 20 MG CAP PO SCH (09:04)
[2019-03-21] MEDS: ISOSORBIDE MON. (IMDUR) 30 MG XR TAB PO SCH (09:04)
[2019-03-21] MEDS: busPIRone 5 MG TAB PO SCH (12:00)
[2019-03-21 14:00] VITALS: BP 156/76
[2019-03-21 20:24] LABS: CLOSTRIDIUM DIFFICILE PCR NO RESULT (NEGATIVE)
[2019-03-21 20:30] VITALS: BP 154/75
[2019-03-21] MEDS: QUEtiapine FUMARATE 50 MG TAB PO SCH (20:35)
[2019-03-21] MEDS: MIRTAZAPINE 15 MG TAB PO SCH (20:35)
[2019-03-21] MEDS: ACETAMINOPHEN TAB 650MG DOSE (2X325MG) PO PRN (20:36)
[2019-03-22 06:08] VITALS: BP 150/69
[2019-03-22 09:25] LABS: CLOSTRIDIUM DIFFICILE PCR NEGATIVE (NEGATIVE)
--- NOTE | 2019-03-22 09:31 | IPN ---
DATE OF SERVICE: 03/20/2019 The patient says that her breathing is significantly improved. Her gout on the right second distal interphalangeal joint of the hand also feels much improved after starting the prednisone. The patient has been cooperative with physical therapy and fully understands that she is waiting for placement. No fever. No chills. No nausea or vomiting. No abdominal pain. No cough, palpitations, lightheadedness or dizziness. The patient was sleeping well and appetite is back to normal. The patient complains of doughy-like bowel movement this morning that is bright orange in color. The patient is not on any Pyridium at this time. Temperature 98.9, pulse 84, respiratory rate 20, blood pressure 147/73, 98% on room air. Generally, the patient is gregarious, but pleasant. She is awake, alert and oriented to person and place, disoriented to time. She is very compliant and pleasant this morning. Dry mucous membranes. Lungs are diminished, but clear to auscultation. No wheezing, rales or rhonchi. She has no conversational dyspnea. Face is symmetric. Heart: S1, S2. Sinus rhythm. Abdomen: Soft. Nontender. Nondistended. Positive bowel sounds times four quadrants. No rebound, guarding or hepatosplenomegaly. Extremities: No cyanosis, clubbing or pitting edema bilateral lower extremities. Right second DIP joint has tophaceous gout, yellowish discoloration. LABORATORY DATA: CBG and metabolic panel have been notable for a white count increased to 15 and creatinine is at baseline at 2.56 with chronic kidney disease Stage 4. On 03/12/2019, urine culture with E. Coli, repeat urine culture is clear. ASSESSMENT AND PLAN: This is an 88-year-old female with past medical history significant for chronic hypertensive heart disease, irritable bowel syndrome, chronic kidney disease (CKD) 3, reflux, coronary artery disease (CAD) coronary artery bypass graft (CABG), CVA, osteoarthritis, right hip replacement, depression, carotid endarterectomy, right distal femoral fracture, hepatitis, admitted due to worsening dementia with paranoia awaiting placement to a locked dementia unit. On admission, she was found to have a urinary tract infection with mild leukocytosis treated with antibiotics. Acute issues are: 1. Acute gout flare due to chronic kidney disease Stage 3 and risk of worsening renal failure. The patient could not be given any nonsteroidal anti-inflammatories or Colchicine and is currently on prednisone for a short course. 2. Acute kidney injury on chronic renal failure Stage 4. Currently stable. Avoiding nephrotoxins, renally dosing all medications. Currently does not have any decompensated kidney disease without hyperkalemia or metabolic acidosis or signs of any fluid overload. 3. Acute metabolic encephalopathy secondary to urinary tract infection and advancing dementia with delusional features and behavioral disturbance and paranoia. She is currently pleasant and cooperative, compliant with her medications. She is being treated for a UTI for three days and is awaiting placement. 4. Urinary tract infection present on admission. Urine culture grew E. Coli. She has completed a full course of Levaquin renal dosing 250 every 48 hours with repeat urine culture showing no growth. 5. Reflux. On chronic Prilosec. 6. Hypertensive heart disease. On isosorbide, metoprolol. 7. Senile dementia with advancing behavioral disturbance and paranoia. On Zyprexa, BuSpar, Remeron, Seroquel. 8. Deep vein thrombosis (DVT) prophylaxis. Subcutaneous heparin. DISPOSITION: Awaiting dementia unit placement. [facility]
[2019-03-22] MEDS: ASPIRIN 325 MG TAB PO SCH (09:37)
[2019-03-22] MEDS: predniSONE 20 MG TAB PO SCH (09:37)
[2019-03-22] MEDS: METOPROLOL SUCC (TopROL XL) 50MG **XL** TAB PO SCH (09:40)
[2019-03-22] MEDS: LEVOTHYROXINE 50MCG TABLET (0.05MG) PO SCH (09:40)
[2019-03-22] MEDS: OMEPRAZOLE 20 MG CAP PO SCH (09:40)
[2019-03-22] MEDS: HEPARIN SOD (PORCINE) 5000 UNITS/ML VIAL SC SCH ×2 (09:41→20:00)
[2019-03-22] MEDS: ISOSORBIDE MON. (IMDUR) 30 MG XR TAB PO SCH (09:41)
--- NOTE | 2019-03-22 12:06 | IPN ---
DATE OF SERVICE: 03/21/2019 SUBJECTIVE: The patient says that the right second digit distal interphalangeal joint (DIP) joint is feeling much better since prednisone had been given for acute gout exacerbation. Her breathing also is much improved. Denies any dyspnea at rest or with exertion, paroxysmal nocturnal dyspnea (PND) or orthopnea. No lower extremity edema. She is awaiting placement to rehabilitation and has had no other acute issues during this weekend. She, however is requesting to ambulate. Physical therapy is not available on Friday and Friday. She says that she has been walking well with Noah with her walker. She is requesting pants to be put on as she currently only has diapers, and for nursing to help her ambulate during the day if they have the time. Blood pressure has remained slightly elevated this morning at 161 systolic. She otherwise, denies any chest pain, pressure or tightness, lightheadedness, dizziness. She also denies any changes in vision, headache or blurred vision. She wears eyeglasses at baseline, has not had any changes. The patient was a bit concerned about her bright orange colored stool yesterday. The patient had not been on Pyridium for urinary tract infection (UTI). She otherwise, denies any dysuria, urgency, frequency, fever, chills, or flank pain. Temperature 97.7, pulse 78, respiratory rate 19, blood pressure 161/80, 96% on room air. Generally, the patient is awake, alert, oriented to herself. She is disoriented to place and time, but has been cooperative and pleasantly confused. She has no use of respiratory accessory muscles or conversational dyspnea. Face is symmetric. Tongue is midline. No cervical lymphadenopathy, thyromegaly or jugular venous distention. Lungs are clear to auscultation. No wheezing, rales or rhonchi. Air entry is equal bilaterally. She has slight scoliosis. Heart: S1, S2. Sinus rhythm. No murmurs, rubs or gallops. Abdomen is soft, nontender, nondistended. She currently has diapers on. Positive bowel sounds times four quadrants. No rebound, guarding. No abdominal bruit is noted. Extremities have no cyanosis, clubbing or pitting edema. LABORATORY DATA: White count 16, hemoglobin 11, hematocrit 35, platelet count 408. Sodium 143, potassium 4.5, chloride 114, bicarbonate 18, BUN 68, creatinine 2.3, and glucose of 92. ASSESSMENT AND PLAN: This is an 88-year-old female awaiting dementia unit bed with history of chronic hypertensive heart disease, irritable bowel syndrome, chronic kidney disease stage III, reflux, coronary artery disease (CAD), coronary artery bypass graft (CABG), depression, CVA, osteoarthritis, right hip replacement, carotid endarterectomy, right distal femoral fracture, hypothyroidism was admitted due to worsening behavior and paranoia due to advancing dementia. The patient was found on admission to have a urinary tract infection, which was treated. ACUTE ISSUES: 1. Acute gout exacerbation in the right second DIP joint due to chronic kidney disease stage III and risk of worsening renal failure. The patient has been given prednisone 20 mg for a short course. It has improved significantly. She denies any active pain at this time. Appears to be much more comfortable. 2. Acute on chronic renal failure. The patient has improved back to her baseline. We are avoiding nephrotoxins, renally dosing all her medications. She is back to her baseline. Does not have any hyperkalemia. There is slight metabolic acidosis, which we will need to monitor with serial metabolic panels. 3. Acute metabolic encephalopathy secondary to urinary tract infection in the setting of advancing dementia with paranoia. The patient has been treated with antibiotics for a urinary tract infection, which was renally dosed. She is currently awaiting placement to a dementia unit. 4. Urinary tract infection secondary to Escherichia (E) coli. Completed a full course of Levaquin renal dosing. Repeat urine culture shows no growth. This has resolved. 5. Reflux disease. On chronic Prilosec. 6. Hypertension, uncontrolled. The patient has not received her medications this morning. She is currently on isosorbide and metoprolol, respectively. 7. Advancing dementia with behavioral disturbance and paranoia. On Zyprexa, BuSpar, Remeron, and Seroquel. The patient has been cooperative and has not been agitated and not experienced any sundowning during this admission; is not requiring a sitter. We are still awaiting placement for her in a dementia unit. 8. Deep vein thrombosis (DVT) prophylaxis. On subcutaneous heparin 5000 units every 12 hours. DISPOSITION: Awaiting bed availability in dementia unit fpc. [facility]
[2019-03-22] MEDS: busPIRone 5 MG TAB PO SCH (12:12)
[2019-03-22 13:53] VITALS: BP 125/66
--- NOTE | 2019-03-22 17:25 | IPNPDOC ---
Date Seen The patient was seen on 03/22/19. Progress Note SUBJECTIVE: still c/o doughy like bowel movements and abdominal cramping 2/10 while having bm. "I feel so bad they have to clean that all up." no fever or chills. right 2nd digit dip joint pain is improved. "I squeeze all that yellow stuff out you know." Physical Examination vitals:pls see below Generally, the patient is awake, alert, oriented to herself. gregarious pleasantly confused, with pressured speech. She has no use of respiratory accessory muscles or conversational dyspnea. Face is symmetric. Tongue is midline. No cervical lymphadenopathy, thyromegaly or jugular venous distention. Lungs are clear to auscultation. No wheezing, rales or rhonchi. Air entry is equal bilaterally. She has slight scoliosis. Heart: S1, S2. Sinus rhythm. No murmurs, rubs or gallops. Abdomen is soft, nontender, nondistended. She currently has diapers on. Positive bowel sounds times four quadrants. No rebound, guarding. No abdominal bruit is noted. Extremities have no cyanosis, clubbing or pitting edema. right 2nd dip joint with tophaceous gout yellow deposits LABORATORY DATA: reviewed, pls see below. ASSESSMENT AND PLAN: This is an 88-year-old female awaiting dementia unit bed with history of chronic hypertensive heart disease, irritable bowel syndrome, chronic kidney disease stage III, reflux, coronary artery disease (CAD), coronary artery bypass graft (CABG), depression, CVA, osteoarthritis, right hip replacement, carotid endarterectomy, right distal femoral fracture, hypothyroidism was admitted due to worsening behavior and paranoia due to advancing dementia. The patient was found on admission to have a urinary tract infection, which was treated. ACUTE ISSUES: 1. Acute gout exacerbation in the right second DIP joint due to chronic kidneydisease stage III and risk of worsening renal failure,on prednisone 20 mg for a short course. It has improved significantly. She denies any active pain at this time. Appears to be much more comfortable. 2. Acute on chronic renal failure. The patient has improved back to her baseline. We are avoiding nephrotoxins, renally dosing all her medications. She is back to her baseline. Does not have any hyperkalemia. There is slight metabolic acidosis, which we will need to monitor with serial metabolic panels. 3. Acute metabolic encephalopathy secondary to urinary tract infection in the setting of advancing dementia with paranoia. The patient has been treated with antibiotics for a urinary tract infection, which was renally dosed. She is currently awaiting placement to a dementia unit. 4. Urinary tract infection secondary to Escherichia (E) coli. Completed a full course of Levaquin renal dosing. Repeat urine culture shows no growth. This has resolved. 5. Reflux disease. On chronic Prilosec. 6. Hypertension, uncontrolled. The patient has not received her medications this morning. She is currently on isosorbide and metoprolol, respectively. 7. Advancing dementia with behavioral disturbance and paranoia. On Zyprexa, BuSpar, Remeron, and Seroquel. The patient has been cooperative and has not been agitated and not experienced any sundowning during this admission; is not requiring a sitter. We are still awaiting placement for her in a dementia unit. 8.Irritable bowel syndrome resume home meds Deep vein thrombosis (DVT) prophylaxis. On subcutaneous heparin 5000 units every 12 hours. DISPOSITION: Awaiting bed availability in dementia unit [facility]. [facility]I&O Vital Signs Date Time Temp Pulse Resp B/P (MAP) Pulse Ox O2 Delivery O2 Flow Rate FiO2 03/22/19 13:53 97.6 62 18 125/66 (85) 99 I&O- Last 24 Hours up to 6 AM 03/22/19 06:00 Intake Total 900 ml Output Total 100 ml Balance 800 ml Laboratory Data 24H LABS Laboratory Tests 2 03/21/19 20:04: Clostridium difficile 027-NAP1-B1 NO RESULT, Clostridium difficile Toxin (PCR) NO RESULT 03/22/19 07:15: Clostridium difficile [id number]-[id number] PRESUMPTIVE NEGATIVE, Clostridium difficile Toxin (PCR) NEGATIVE Microbiology Microbiology 03/14/19 Urine Culture - Final, Complete 03/12/19 Urine Culture - Final, Complete Escherichia Coli NEGIN BECKER MD Mar 22, 2019 17:25
[2019-03-22] MEDS: QUEtiapine FUMARATE 50 MG TAB PO SCH (20:00)
[2019-03-22] MEDS: MIRTAZAPINE 15 MG TAB PO SCH (20:00)
[2019-03-22 22:00] VITALS: BP 133/59
[2019-03-23 06:00] VITALS: BP 173/74
[2019-03-23 07:51] VITALS: BP 140/72
[2019-03-23] MEDS: LEVOTHYROXINE 50MCG TABLET (0.05MG) PO SCH (08:31)
[2019-03-23] MEDS: HEPARIN SOD (PORCINE) 5000 UNITS/ML VIAL SC SCH ×2 (08:31→20:33)
[2019-03-23] MEDS: predniSONE 20 MG TAB PO SCH (08:31)
[2019-03-23] MEDS: METOPROLOL SUCC (TopROL XL) 50MG **XL** TAB PO SCH (08:31)
[2019-03-23] MEDS: ASPIRIN 325 MG TAB PO SCH (08:31)
[2019-03-23] MEDS: OMEPRAZOLE 20 MG CAP PO SCH (08:32)
[2019-03-23] MEDS: ISOSORBIDE MON. (IMDUR) 30 MG XR TAB PO SCH (08:32)
[2019-03-23] MEDS: busPIRone 5 MG TAB PO SCH (11:34)
[2019-03-23 14:00] VITALS: BP 128/64
[2019-03-23] MEDS ORDERED: predniSONE 5 MG TAB PO ONE (16:00)
[2019-03-23 16:24] LABS: HEMATOCRIT 36.8 % (36.0-47.0); HEMOGLOBIN 11.9 g/dl (12.0-15.5); MEAN CORPUSCULAR HEMOGLOBIN 32.3 pg (27.0-33.0); MEAN CORPUSCULAR HGB CONC 32.3 g/dl (32.0-36.5); PLATELET COUNT, AUTOMATED 524 10^3/uL (150-450); RED BLOOD COUNT 3.68 10^6/uL (4.00-5.40); WHITE BLOOD COUNT 17.6 10^3/uL (4.0-10.0)
[2019-03-23 16:38] LABS: CALCIUM LEVEL 8.9 MG/DL (8.8-10.2); CREATININE FOR GFR 2.32 MG/DL (0.55-1.30); GLOMERULAR FILTRATION RATE 21.1 (>32)
[2019-03-23] MEDS ORDERED: SOD POLYSTYRENE SULFONATE SUSP 15 GM/60 ML UD PO ONE (18:30)
[2019-03-23] MEDS: QUEtiapine FUMARATE 50 MG TAB PO SCH (20:33)
[2019-03-23] MEDS: MIRTAZAPINE 15 MG TAB PO SCH (20:33)
[2019-03-24] MEDS ORDERED: ALBUTEROL SULFATE 2.5 MG/0.5 ML INH NEB SOLN NEB ONE (01:30)
[2019-03-24] MEDS: RAMELTEON 8 MG TAB (ROZEREM) PO SCH ×2 (02:46→20:28)
[2019-03-24 06:00] VITALS: BP 166/76
[2019-03-24] MEDS ORDERED: SOD POLYSTYRENE SULFONATE SUSP 15 GM/60 ML UD PO ONE (09:00)
[2019-03-24] MEDS: METOPROLOL SUCC (TopROL XL) 50MG **XL** TAB PO SCH (09:49)
[2019-03-24] MEDS: ISOSORBIDE MON. (IMDUR) 30 MG XR TAB PO SCH (09:49)
[2019-03-24] MEDS: LEVOTHYROXINE 50MCG TABLET (0.05MG) PO SCH (09:50)
[2019-03-24] MEDS: OMEPRAZOLE 20 MG CAP PO SCH (09:50)
[2019-03-24] MEDS: HEPARIN SOD (PORCINE) 5000 UNITS/ML VIAL SC SCH ×2 (09:50→20:28)
[2019-03-24] MEDS: ASPIRIN 325 MG TAB PO SCH (09:50)
[2019-03-24] MEDS: predniSONE 5 MG TAB PO SCH (09:50)
[2019-03-24 11:27] LABS: CALCIUM LEVEL 8.8 MG/DL (8.8-10.2); CREATININE FOR GFR 2.13 MG/DL (0.55-1.30); GLOMERULAR FILTRATION RATE 23.3 (>32); POTASSIUM SERUM 4.1 MEQ/L (3.5-5.1)
[2019-03-24] MEDS: busPIRone 5 MG TAB PO SCH (12:07)
[2019-03-24] MEDS: QUEtiapine FUMARATE 50 MG TAB PO SCH (20:28)
[2019-03-24] MEDS: MIRTAZAPINE 15 MG TAB PO SCH (20:28)
[2019-03-24 22:00] VITALS: BP 135/60
[2019-03-25 06:00] VITALS: BP 138/66
[2019-03-25] MEDS: OMEPRAZOLE 20 MG CAP PO SCH (08:56)
[2019-03-25] MEDS: METOPROLOL SUCC (TopROL XL) 50MG **XL** TAB PO SCH (08:56)
[2019-03-25] MEDS: ASPIRIN 325 MG TAB PO SCH (08:56)
[2019-03-25] MEDS: LEVOTHYROXINE 50MCG TABLET (0.05MG) PO SCH (08:56)
[2019-03-25] MEDS: HEPARIN SOD (PORCINE) 5000 UNITS/ML VIAL SC SCH ×2 (08:57→20:53)
[2019-03-25] MEDS: predniSONE 5 MG TAB PO SCH (08:57)
[2019-03-25] MEDS: ISOSORBIDE MON. (IMDUR) 30 MG XR TAB PO SCH (08:57)
[2019-03-25] MEDS: ACETAMINOPHEN TAB 650MG DOSE (2X325MG) PO PRN (11:24)
[2019-03-25] MEDS: busPIRone 5 MG TAB PO SCH (11:24)
[2019-03-25 12:49] LABS: HEMATOCRIT 35.5 % (36.0-47.0); HEMOGLOBIN 11.4 g/dl (12.0-15.5); MEAN CORPUSCULAR HEMOGLOBIN 31.6 pg (27.0-33.0); MEAN CORPUSCULAR HGB CONC 32.1 g/dl (32.0-36.5); MEAN CORPUSCULAR VOLUME 98.3 fl (80.0-96.0); PLATELET COUNT, AUTOMATED 483 10^3/uL (150-450); RED BLOOD COUNT 3.61 10^6/uL (4.00-5.40); WHITE BLOOD COUNT 23.5 10^3/uL (4.0-10.0)
[2019-03-25 13:03] LABS: CALCIUM LEVEL 8.8 MG/DL (8.8-10.2); CREATININE FOR GFR 2.17 MG/DL (0.55-1.30); GLOMERULAR FILTRATION RATE 22.8 (>32); POTASSIUM SERUM 4.8 MEQ/L (3.5-5.1)
[2019-03-25 17:03] LABS: BASO # 0.1 10^3/uL (0.0-0.2); BASO % 0.3 % (0.0-1.0); EOS % 0.2 % (0.0-3.0); HEMATOCRIT 33.2 % (36.0-47.0); HEMOGLOBIN 10.9 g/dl (12.0-15.5); LYMPH # 2.5 10^3/uL (1.5-4.5); LYMPH % 12.8 % (24.0-44.0); MEAN CORPUSCULAR HEMOGLOBIN 31.8 pg (27.0-33.0); MEAN CORPUSCULAR HGB CONC 32.8 g/dl (32.0-36.5); MEAN CORPUSCULAR VOLUME 96.8 fl (80.0-96.0); MONO # 0.6 10^3/uL (0.0-0.8); MONO % 2.9 % (0.0-5.0); NEUTROPHILS % 80.1 % (36.0-66.0); PLATELET COUNT, AUTOMATED 448 10^3/uL (150-450); RED BLOOD COUNT 3.43 10^6/uL (4.00-5.40); WHITE BLOOD COUNT 19.9 10^3/uL (4.0-10.0)
[2019-03-25 17:07] LABS: CALCIUM LEVEL 8.7 MG/DL (8.8-10.2); CREATININE FOR GFR 2.34 MG/DL (0.55-1.30); GLOMERULAR FILTRATION RATE 20.9 (>32); POTASSIUM SERUM 5.5 MEQ/L (3.5-5.1)
[2019-03-25] MEDS: RAMELTEON 8 MG TAB (ROZEREM) PO SCH (20:52)
[2019-03-25] MEDS: QUEtiapine FUMARATE 50 MG TAB PO SCH (20:52)
[2019-03-25] MEDS: MIRTAZAPINE 15 MG TAB PO SCH (20:53)
[2019-03-26 06:00] VITALS: BP 173/71
[2019-03-26 08:57] LABS: HEMATOCRIT 36.9 % (36.0-47.0); HEMOGLOBIN 12.2 g/dl (12.0-15.5); MEAN CORPUSCULAR HEMOGLOBIN 32.7 pg (27.0-33.0); MEAN CORPUSCULAR HGB CONC 33.1 g/dl (32.0-36.5); MEAN CORPUSCULAR VOLUME 98.9 fl (80.0-96.0); PLATELET COUNT, AUTOMATED 414 10^3/uL (150-450); RED BLOOD COUNT 3.73 10^6/uL (4.00-5.40); WHITE BLOOD COUNT 20.9 10^3/uL (4.0-10.0)
[2019-03-26] MEDS: LEVOTHYROXINE 50MCG TABLET (0.05MG) PO SCH (09:29)
[2019-03-26] MEDS: ISOSORBIDE MON. (IMDUR) 30 MG XR TAB PO SCH (09:29)
[2019-03-26] MEDS: OMEPRAZOLE 20 MG CAP PO SCH (09:29)
[2019-03-26] MEDS: predniSONE 5 MG TAB PO SCH (09:29)
[2019-03-26] MEDS: METOPROLOL SUCC (TopROL XL) 50MG **XL** TAB PO SCH (09:29)
[2019-03-26] MEDS: ASPIRIN 325 MG TAB PO SCH (09:29)
[2019-03-26] MEDS: HEPARIN SOD (PORCINE) 5000 UNITS/ML VIAL SC SCH ×2 (09:30→20:27)
[2019-03-26] MEDS: busPIRone 5 MG TAB PO SCH (11:40)
--- NOTE | 2019-03-26 13:42 | IPNPDOC ---
Text Note Date of Service The patient was seen on 03/26/19. NOTE Patient seen today, no acute complaints but states her room is too cold. She feels well, denies any fevers, chills, cough, wheezing, chest pain, palpitations, abd pain, n/v/d, LE edema, focal numbness/tingling. She endorses her pain is controlled. She was scheduled to be discharged to [facility] however they asked for repeat CBC due to elevated WBC due to steroid use for her gout. WBC returned elevated however improved from prior. No clinical signs of infection, leukocytosis is likely due to steroid use however [facility] refused to take patient per nursing staff. As her gout pain is improved I will d/c prednisone at this time and monitor clinically, can get tylenol prn for pain. VS,Fishbone, I+O VS, Fishbone, I+O Laboratory Tests 03/26/19 08:41 Red Blood Count 3.73 L, Mean Corpuscular Volume 98.9 H, Mean Corpuscular Hemoglobin 32.7, Mean Corpuscular Hemoglobin Concent 33.1, Red Cell Distribution Width 13.3 Vital Signs Date Time Temp Pulse Resp B/P (MAP) Pulse Ox O2 Delivery O2 Flow Rate FiO2 03/26/19 09:29 58 173/71 03/26/19 06:00 97.5 18 97 I&O- Last 24 Hours up to 6 AM 03/26/19 06:00 Intake Total 1200 ml Output Total 100 ml Balance 1100 ml VIJAYA FITZGERALD MD Mar 26, 2019 13:42
[2019-03-26] MEDS: QUEtiapine FUMARATE 50 MG TAB PO SCH (20:27)
[2019-03-26] MEDS: RAMELTEON 8 MG TAB (ROZEREM) PO SCH (20:27)
[2019-03-26] MEDS: MIRTAZAPINE 15 MG TAB PO SCH (20:27)
[2019-03-27 06:00] VITALS: BP 120/71
--- NOTE | 2019-03-27 07:41 | IPN ---
DATE: 03/27/2019 Lucretia is seen while waiting for jail bed. She is just being treated with steroids for patient's gout. 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 It is better since she was placed on prednisone. She is being tapered. PHYSICAL EXAMINATION: Afebrile. Lungs clear. Heart regular rhythm. Abdomen soft, nontender. Right index finger has quite impressive gouty tophus. PLAN: She is on steroids for tophaceous gout. Typically patient's gout requires aggressive uric acid lowering to a level of 6. Will be given allopurinol 100 mg daily. With her stage IV chronic kidney disease she will probably need a higher dose. Uric acid level should be checked in 4 weeks after initiating allopurinol therapy.
[2019-03-27] MEDS: HEPARIN SOD (PORCINE) 5000 UNITS/ML VIAL SC SCH ×2 (09:00→20:12)
[2019-03-27] MEDS: LEVOTHYROXINE 50MCG TABLET (0.05MG) PO SCH (09:01)
[2019-03-27] MEDS: predniSONE 5 MG TAB PO SCH (09:01)
[2019-03-27] MEDS: ISOSORBIDE MON. (IMDUR) 30 MG XR TAB PO SCH (09:01)
[2019-03-27] MEDS: ASPIRIN 325 MG TAB PO SCH (09:01)
[2019-03-27] MEDS: OMEPRAZOLE 20 MG CAP PO SCH (09:01)
[2019-03-27] MEDS: ALLOPURINOL 100 MG TAB PO SCH (09:02)
[2019-03-27] MEDS: METOPROLOL SUCC (TopROL XL) 50MG **XL** TAB PO SCH (09:02)
[2019-03-27] MEDS: busPIRone 5 MG TAB PO SCH (11:55)
[2019-03-27 14:00] VITALS: BP 116/50
[2019-03-27] MEDS ORDERED: MIRALAX *UNIT DOSE* 17GM PACKET PO ONE (16:00)
[2019-03-27] MEDS ORDERED: SENOKOT S TAB PO ONE (16:00)
[2019-03-27] MEDS: QUEtiapine FUMARATE 50 MG TAB PO SCH (20:11)
[2019-03-27] MEDS: MIRTAZAPINE 15 MG TAB PO SCH (20:11)
[2019-03-27] MEDS: RAMELTEON 8 MG TAB (ROZEREM) PO SCH (20:12)
[2019-03-27] MEDS: MIRALAX *UNIT DOSE* 17GM PACKET PO SCH (20:12)
[2019-03-27] MEDS: SENOKOT S TAB PO SCH (20:12)
[2019-03-27 22:00] VITALS: BP 128/45
[2019-03-28] MEDS: ASPIRIN 325 MG TAB PO SCH (09:34)
[2019-03-28] MEDS: HEPARIN SOD (PORCINE) 5000 UNITS/ML VIAL SC SCH ×2 (09:34→19:59)
[2019-03-28] MEDS: SENOKOT S TAB PO SCH ×2 (09:35→19:59)
[2019-03-28] MEDS: MIRALAX *UNIT DOSE* 17GM PACKET PO SCH ×3 (09:35→19:59)
[2019-03-28] MEDS: predniSONE 5 MG TAB PO SCH (09:35)
[2019-03-28] MEDS: ISOSORBIDE MON. (IMDUR) 30 MG XR TAB PO SCH (09:35)
[2019-03-28] MEDS: LEVOTHYROXINE 50MCG TABLET (0.05MG) PO SCH (09:35)
[2019-03-28] MEDS: OMEPRAZOLE 20 MG CAP PO SCH (09:35)
[2019-03-28] MEDS: METOPROLOL SUCC (TopROL XL) 50MG **XL** TAB PO SCH (09:36)
[2019-03-28] MEDS: ALLOPURINOL 100 MG TAB PO SCH (09:36)
[2019-03-28] MEDS: busPIRone 5 MG TAB PO SCH (12:05)
[2019-03-28 16:00] VITALS: BP 120/62
--- NOTE | 2019-03-28 19:09 | IPNPDOC ---
Text Note Date of Service The patient was seen on 03/28/19. NOTE Subjective: No any acute events overnight. Patient was in good mood, smiling. She denies any pain, fever, chills, nausea, vomiting, diarrhea or dysuria. Objective: General: NAD HEENT: PERRLA, EOMI, no JVD CV: S1 and S2 Chest: Lungs clear to auscultation Abdomen: Nontender, nondistended Extremity: No cyanosis, no swelling Neuro: Nonfocal, cranial nerves from 2-12 intact Assessment and plan: Patient is 88 years old female with past history of dementia, hypertension, coronary artery diseases, CVA, gout was admitted with altered mental status secondary to advancing dementia and UTI. Patient received treatment with antibiotics, altered mental status resolved. During hospital stay patient developed acute gout attack, treated with steroids. Await dementia unit [facility] Acute gout exacerbation in the right second DIP joint Patient receives steroids by mouth Allopurinol 100 mg by mouth Acute on chronic renal failure. Most likely prerenal. Improved Close to baseline Altered mental status Patient developed acute metabolic encephalopathy most likely secondary to UTI infection Completed course of antibiotics UTI Urine culture was positive for Escherichia coli Completed course of Levaquin Reflux disease. On chronic Prilosec. 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 Patient mental status significantly improved, today she was in the good mood, talkative, cooperative Irritable bowel syndrome resumed home meds Deep vein thrombosis (DVT) prophylaxis. On subcutaneous heparin 5000 units every 12 hours. VS,Fishbone, I+O VS, Fishbone, I+O Vital Signs Date Time Temp Pulse Resp B/P (MAP) Pulse Ox O2 Delivery O2 Flow Rate FiO2 03/28/19 16:00 98.3 60 18 120/62 (81) 96 I&O- Last 24 Hours up to 6 AM 03/28/19 06:00 Intake Total 2440 ml Output Total 0 ml Balance 2440 ml CLEO MENSAH DO Mar 28, 2019 19:09
[2019-03-28] MEDS: RAMELTEON 8 MG TAB (ROZEREM) PO SCH (19:59)
[2019-03-28] MEDS: MIRTAZAPINE 15 MG TAB PO SCH (19:59)
[2019-03-28] MEDS: QUEtiapine FUMARATE 50 MG TAB PO SCH (19:59)
[2019-03-28 22:00] VITALS: BP 138/65
[2019-03-29 06:00] VITALS: BP 131/56
[2019-03-29 07:43] LABS: CALCIUM LEVEL 8.8 MG/DL (8.8-10.2); CREATININE FOR GFR 2.09 MG/DL (0.55-1.30); GLOMERULAR FILTRATION RATE 23.8 (>32); POTASSIUM SERUM 5.7 MEQ/L (3.5-5.1)
[2019-03-29 07:44] LABS: HEMATOCRIT 38.9 % (36.0-47.0); HEMOGLOBIN 12.6 g/dl (12.0-15.5); MEAN CORPUSCULAR HEMOGLOBIN 32.7 pg (27.0-33.0); MEAN CORPUSCULAR HGB CONC 32.4 g/dl (32.0-36.5); PLATELET COUNT, AUTOMATED 320 10^3/uL (150-450); RED BLOOD COUNT 3.85 10^6/uL (4.00-5.40); WHITE BLOOD COUNT 16.6 10^3/uL (4.0-10.0)
[2019-03-29] MEDS: METOPROLOL SUCC (TopROL XL) 50MG **XL** TAB PO SCH (09:31)
[2019-03-29] MEDS: SENOKOT S TAB PO SCH ×2 (09:31→21:35)
[2019-03-29] MEDS: LEVOTHYROXINE 50MCG TABLET (0.05MG) PO SCH (09:31)
[2019-03-29] MEDS: ISOSORBIDE MON. (IMDUR) 30 MG XR TAB PO SCH (09:31)
[2019-03-29] MEDS: OMEPRAZOLE 20 MG CAP PO SCH (09:31)
[2019-03-29] MEDS: ALLOPURINOL 100 MG TAB PO SCH (09:31)
[2019-03-29] MEDS: HEPARIN SOD (PORCINE) 5000 UNITS/ML VIAL SC SCH ×2 (09:32→21:35)
[2019-03-29] MEDS: predniSONE 5 MG TAB PO SCH (09:32)
[2019-03-29] MEDS: ASPIRIN 325 MG TAB PO SCH (09:32)
[2019-03-29] MEDS: MIRALAX *UNIT DOSE* 17GM PACKET PO SCH ×2 (09:32→21:35)
[2019-03-29 11:47] LABS: HEMATOCRIT 37.1 % (36.0-47.0); MEAN CORPUSCULAR HEMOGLOBIN 32.2 pg (27.0-33.0); MEAN CORPUSCULAR HGB CONC 32.3 g/dl (32.0-36.5); MEAN CORPUSCULAR VOLUME 99.5 fl (80.0-96.0); PLATELET COUNT, AUTOMATED 319 10^3/uL (150-450); RED BLOOD COUNT 3.73 10^6/uL (4.00-5.40); WHITE BLOOD COUNT 20.1 10^3/uL (4.0-10.0)
[2019-03-29 12:13] LABS: CALCIUM LEVEL 8.7 MG/DL (8.8-10.2); CREATININE FOR GFR 2.13 MG/DL (0.55-1.30); GLOMERULAR FILTRATION RATE 23.3 (>32); POTASSIUM SERUM 5.2 MEQ/L (3.5-5.1)
[2019-03-29] MEDS: busPIRone 5 MG TAB PO SCH (13:15)
--- NOTE | 2019-03-29 17:39 | IPNPDOC ---
Text Note Date of Service The patient was seen on 03/29/19. NOTE Subjective: The patient does not have any complaints. She is stating that she is not ill and does not need to be in the hospital. Objective: Please see vital signs below General: Awake, alert, conversant, expresses humor HENT: Neck is supple with no adenopathy or thyromegaly. Oral mucosa is moist. Cardiovascular: Regular rate and rhythm with a normal S1 and S2. Abdomen: Nontender, nondistended, bowel tones present. Respiratory: She is fully clear to auscultation Extremities: No peripheral edema or lesions. Neuro: Patient does not express any focal neuromotor or sensory deficit Assessment/plan 1. Acute on chronic kidney disease. Likely prerenal in etiology. Appears to have stabilized. 2. Leukocytosis. Persists. Patient did have urine culture positive for Escherichia coli. She did receive a full course of antibiotic therapy. Patient is asymptomatic. 3. Dementia. The patient is pleasantly demented. She is awaiting placement to the dementia unit at [facility]. VS,Fishbone, I+O VS, Fishbone, I+O Laboratory Tests 03/29/19 06:53 Calcium Level 8.8 03/29/19 07:30 Red Blood Count 3.85 L, Mean Corpuscular Volume 101.0 H, Mean Corpuscular Hemoglobin 32.7, Mean Corpuscular Hemoglobin Concent 32.4, Red Cell Distribution Width 13.8 03/29/19 11:30 Calcium Level 8.7 L, Red Blood Count 3.73 L, Mean Corpuscular Volume 99.5 H, Mean Corpuscular Hemoglobin 32.2, Mean Corpuscular Hemoglobin Concent 32.3, Red Cell Distribution Width 13.8 Vital Signs Date Time Temp Pulse Resp B/P (MAP) Pulse Ox O2 Delivery O2 Flow Rate FiO2 03/29/19 09:31 53 131/56 03/29/19 06:00 98.2 18 98 I&O- Last 24 Hours up to 6 AM 03/29/19 05:59 Intake Total 2040 ml Output Total 0 ml Balance 2040 ml TONYA MACIEL MD Mar 29, 2019 17:39
[2019-03-29] MEDS: RAMELTEON 8 MG TAB (ROZEREM) PO SCH (21:35)
[2019-03-29] MEDS: MIRTAZAPINE 15 MG TAB PO SCH (21:35)
[2019-03-29] MEDS: QUEtiapine FUMARATE 50 MG TAB PO SCH (21:35)
[2019-03-30 06:21] VITALS: BP 104/62
[2019-03-30] MEDS: LEVOTHYROXINE 50MCG TABLET (0.05MG) PO SCH (08:06)
[2019-03-30] MEDS: HEPARIN SOD (PORCINE) 5000 UNITS/ML VIAL SC SCH (08:06)
[2019-03-30] MEDS: OMEPRAZOLE 20 MG CAP PO SCH (08:06)
[2019-03-30] MEDS: ASPIRIN 325 MG TAB PO SCH (08:06)
[2019-03-30] MEDS: SENOKOT S TAB PO SCH (08:06)
[2019-03-30] MEDS: predniSONE 5 MG TAB PO SCH (08:06)
[2019-03-30] MEDS: ALLOPURINOL 100 MG TAB PO SCH (08:07)
[2019-03-30] MEDS: MIRALAX *UNIT DOSE* 17GM PACKET PO SCH (08:08)
[2019-03-30 09:00] VITALS: BP 104/62
[2019-03-30] MEDS: ISOSORBIDE MON. (IMDUR) 30 MG XR TAB PO SCH (09:00)
[2019-03-30] MEDS: METOPROLOL SUCC (TopROL XL) 50MG **XL** TAB PO SCH (09:00)
[2019-03-30 09:10] LABS: HEMATOCRIT 37.7 % (36.0-47.0); HEMOGLOBIN 12.2 g/dl (12.0-15.5); MEAN CORPUSCULAR HEMOGLOBIN 32.6 pg (27.0-33.0); MEAN CORPUSCULAR HGB CONC 32.4 g/dl (32.0-36.5); MEAN CORPUSCULAR VOLUME 100.8 fl (80.0-96.0); PLATELET COUNT, AUTOMATED 291 10^3/uL (150-450); RED BLOOD COUNT 3.74 10^6/uL (4.00-5.40); WHITE BLOOD COUNT 16.9 10^3/uL (4.0-10.0)
[2019-03-30 09:35] LABS: CALCIUM LEVEL 8.7 MG/DL (8.8-10.2); CREATININE FOR GFR 2.39 MG/DL (0.55-1.30); GLOMERULAR FILTRATION RATE 20.4 (>32)
[2019-03-30] MEDS ORDERED: ALLO10TA PO (10:44)
[2019-03-30] MEDS ORDERED: PRED5TA PO (10:44)
[2019-03-30] MEDS ORDERED: ACET1TAB55 PO (10:44)
[2019-03-30] MEDS ORDERED: SENN-52 PO (10:44)
[2019-03-30] MEDS ORDERED: RAME8TAB2 PO (10:44)
[2019-03-30] MEDS: busPIRone 5 MG TAB PO SCH (11:00)
--- NOTE | 2019-03-30 20:40 | DS.PDOC ---
Discharge Summary General Date of Admission Mar 15, 2019 at 15:36 Date of Discharge 03/30/19 Primary Care Physician: Mckinley Mejia M.D. Attending Physician: CLEO MENSAH DO Discharge Summary PROCEDURES PERFORMED DURING STAY: None ADMITTING DIAGNOSES: 1. 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 HISTORY OF PRESENT ILLNESS: Patient is 88 years old female with past history of dementia, hypertension, coronary artery diseases, CVA, gout was admitted with altered mental status secondary to advancing dementia and UTI. Patient received treatment with antibiotics, altered mental status resolved. HOSPITAL COURSE:. During hospital stay patient developed acute gout attack, treated with steroids. Also the following issues were addressed Acute gout exacerbation in the right second DIP joint Patient receives steroids by mouth Allopurinol 100 mg by mouth Acute on chronic renal failure. Most likely prerenal. Improved Close to baseline Altered mental status Patient developed acute metabolic encephalopathy most likely secondary to UTI infection Completed course of antibiotics UTI Urine culture was positive for Escherichia coli Completed course of Levaquin Reflux disease. On chronic Prilosec. 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 Patient mental status significantly improved, today she was in the good mood, talkative, cooperative Irritable bowel syndrome resumed home meds DISCHARGE MEDICATIONS: Please see below. ALLERGIES: Please see below. PHYSICAL EXAMINATION ON DISCHARGE: VITAL SIGNS: Please see below. General: NAD HEENT: PERRLA, EOMI, no JVD CV: S1 and S2 Chest: Lungs clear to auscultation Abdomen: Nontender, nondistended Extremity: No cyanosis, no swelling Neuro: Nonfocal, cranial nerves from 2-12 intact LABORATORY DATA: Please see below. PROGNOSIS: Favorable ACTIVITY:As tolerated DIET: Cardiac DISCHARGE PLAN: Follow-up with PCP in one week DISPOSITION: [facility]. DISCHARGE INSTRUCTIONS: 1. Take prescribed medications DISCHARGE CONDITION: Stable TIME SPENT ON DISCHARGE: Greater than 20 minutes. Vital Signs/I&Os Vital Signs Date Time Temp Pulse Resp B/P (MAP) Pulse Ox O2 Delivery O2 Flow Rate FiO2 03/30/19 09:00 65 104/62 03/30/19 06:21 98.5 18 97 I&O- Last 24 Hours up to 6 AM 03/30/19 05:59 Intake Total 1540 ml Balance 1540 ml Laboratory Data Labs 24H Laboratory Tests 2 03/30/19 08:56: Nucleated Red Blood Cells % (auto) 0.0, Anion Gap 8, Glomerular Filtration Rate 20.4L, Blood Urea Nitrogen 62H, Creatinine 2.39H, Sodium Level 144, Potassium Level 5.0, Chloride Level 112H, Carbon Dioxide Level 24, Calcium Level 8.7L CBC/BMP Laboratory Tests 03/30/19 08:56 Red Blood Count 3.74 L, Mean Corpuscular Volume 100.8 H, Mean Corpuscular Hemoglobin 32.6, Mean Corpuscular Hemoglobin Concent 32.4, Red Cell Distribution Width 14.1, Calcium Level 8.7 L Discharge Medications Scheduled Allopurinol (Allopurinol) 100 Mg Tablet, 100 MG PO DAILY Aspirin (Aspirin) 325 Mg Tablet, 325 MG PO DAILY, (Reported) Buspirone HCl (Buspirone HCl) 5 Mg Tablet, 5 MG PO DAILY, (Reported) TAKES AT NOON Esomeprazole Magnesium (Esomeprazole Magnesium Dr) 40 Mg Capsule.dr, 40 MG PO DAILY, (Reported) Famotidine (Famotidine) 20 Mg Tablet, 20 MG PO QHS, (Reported) Isosorbide Mononitrate (Isosorbide Mononitrate ER) 30 Mg Tab.er.24h, 30 MG PO DAILY, (Reported) Levothyroxine Sodium (Levothyroxine Sodium) 50 Mcg Tablet, 50 MCG PO DAILY, (Reported) Metoprolol Succinate (Metoprolol Succinate) 50 Mg Tab.er.24h, 50 MG PO DAILY, (Reported) Mirtazapine (Remeron) 15 Mg Tablet, 15 MG PO QHS, (Reported) Paricalcitol (Paricalcitol) 1 Mcg Capsule, 1 MCG PO 3XW, (Reported) MON, WED, FRI Prednisone (Prednisone) 5 Mg Tablet, 5 MG PO DAILY Quetiapine Fumarate (Quetiapine Fumarate) 50 Mg Tablet, 50 MG PO QHS, (Reported) Ramelteon (Ramelteon) 8 Mg Tablet, 8 MG PO QHS Sennosides/Docusate Sodium (Senna Plus Tablet) 1 Each Tablet, 1 TAB PO BID Sucralfate (Sucralfate) 1 Gm Tablet, 1 GM PO DAILY, (Reported) Scheduled PRN Acetaminophen (Acetaminophen) 325 Mg Tablet, 650 MG PO Q6HP PRN for PAIN / FEVER Docusate Sodium (Stool Softener) 100 Mg Capsule, 100 MG PO DAILY PRN for CONSTIPATION, (Reported) Allergies Coded Allergies: Nut Tree (Verified Allergy, Unknown, HIVES, 03/12/19) Penicillins (Verified Allergy, Unknown, 03/12/19) and penicillin cross reactors Sulfa (Sulfonamide Antibiotics) (Verified Allergy, Unknown, 03/12/19) and sulfa cross reactors azithromycin (Verified Allergy, Unknown, 03/12/19) calcitriol (Verified Allergy, Unknown, 03/12/19) doxycycline (Verified Allergy, Unknown, 03/12/19) wheat (Verified Allergy, Unknown, 03/12/19) CLEO MENSAH DO Mar 30, 2019 20:40
== END 2019-03-30 11:20 | DRG 689 ==
LOC: EDBD 15:52 → EDSEX 15:52 → M ED 17:46 → M ED INP 17:47 → M MS5PR 03-13 13:10 → OBSVTOIN 03-15 15:36
PROVIDERS: ADMIT Internal Medicine; ATTEND Internal Medicine
DX: N39.0 Urinary tract infection, site not specified (principal); G93.41 Metabolic encephalopathy; N17.9 Acute kidney failure, unspecified; F03.91 Unspecified dementia, unspecified severity, with behavioral disturbance; N18.4 Chronic kidney disease, stage 4 (severe); M10.9 Gout, unspecified; K21.9 Gastro-esophageal reflux disease without esophagitis; I12.9 Hypertensive chronic kidney disease with stage 1 through stage 4 chronic kidney disease, or unspecified chronic kidney disease; I25.10 Atherosclerotic heart disease of native coronary artery without angina pectoris; Z86.73 Personal history of transient ischemic attack (TIA), and cerebral infarction without residual deficits; Z79.82 Long term (current) use of aspirin; Z79.899 Other long term (current) drug therapy; Z88.8 Allergy status to other drugs, medicaments and biological substances; Z88.0 Allergy status to penicillin; Z88.2 Allergy status to sulfonamides; Z91.010 Allergy to peanuts; M19.90 Unspecified osteoarthritis, unspecified site; Z95.1 Presence of aortocoronary bypass graft; Z96.641 Presence of right artificial hip joint; E03.9 Hypothyroidism, unspecified; D53.9 Nutritional anemia, unspecified; B96.29 Other Escherichia coli [E. coli] as the cause of diseases classified elsewhere; D63.1 Anemia in chronic kidney disease

== ENCOUNTER → 2019-04-08 | Outpatient (REF) ==
[~2019-04-08] MED LIST changes: +ACET1TAB55 PO; +ACET650S3 PR; +ALLO10TA PO; +ASPI325T57 PO; +ASPI81TA85 PO; +BUSP5TA PO; +CLOP75TA2 PO; +DSS100CA PO; +DULC10SU2 PR; +ENEMENE PR; +ESOM40CA35 PO; +FAMO1TAB11 PO; +ISOS30TA4 PO; +LEVO50TA5 PO; +METO1TAB7 PO; +MILKSUS3 PO; +MULTTAB62 PO; +NITR4TASL SL; +PANT20TA2 PO; +PARI1CAP3 PO; +PRED5TA PO; +QUET5TAB PO; +RAME8TAB2 PO; +REME15TA PO; +ROZE8TAB16 PO; +SENN-23 PO; +SENN-52 PO; +SIMV40TA20; +SUCR1TAB56 PO; +TOPR25TA PO
[2019-04-08 08:46] LABS: HEMATOCRIT 35.9 % (36.0-47.0); HEMOGLOBIN 11.7 g/dl (12.0-15.5); MEAN CORPUSCULAR HEMOGLOBIN 32.1 pg (27.0-33.0); MEAN CORPUSCULAR HGB CONC 32.6 g/dl (32.0-36.5); MEAN CORPUSCULAR VOLUME 98.6 fl (80.0-96.0); PLATELET COUNT, AUTOMATED 220 10^3/uL (150-450); RED BLOOD COUNT 3.64 10^6/uL (4.00-5.40); WHITE BLOOD COUNT 10.2 10^3/uL (4.0-10.0)
[2019-04-08 09:09] LABS: ALBUMIN 3.4 GM/DL (3.2-5.2); CALCIUM LEVEL 9.1 MG/DL (8.8-10.2); CREATININE FOR GFR 2.49 MG/DL (0.55-1.30); GLOMERULAR FILTRATION RATE 19.4 (>32); PHOSPHORUS LEVEL 3.7 MG/DL (2.5-4.9); POTASSIUM SERUM 4.9 MEQ/L (3.5-5.1)
[2019-04-08 09:16] LABS: ERYTHROCYTE SEDIMENTATION RATE 49 mm/hr (0-30)
== END ==
LOC: SKLAB7 07:00
PROVIDERS: ATTEND Family Medicine
DX: I10 Essential (primary) hypertension (principal)

== ENCOUNTER → 2019-04-15 | Outpatient (REF) ==
[2019-04-15 10:27] LABS: ALBUMIN 3.3 GM/DL (3.2-5.2); CALCIUM LEVEL 9.1 MG/DL (8.8-10.2); CREATININE FOR GFR 2.28 MG/DL (0.55-1.30); GLOMERULAR FILTRATION RATE 21.5 (>32); POTASSIUM SERUM 5.7 MEQ/L (3.5-5.1)
== END ==
LOC: SKLAB7 07:00
PROVIDERS: ATTEND Family Medicine
DX: I10 Essential (primary) hypertension (principal); N18.9 Chronic kidney disease, unspecified

== ENCOUNTER 2019-04-19 14:01 | Inpatient (IN) | payer MEDICARE, MEDICAID ==
[~2019-04-19] VITALS: Ht 157.5 cm; Wt 52.4 kg
[2019-04-19] MEDS: LEVOTHYROXINE 50MCG TABLET (0.05MG) PO SCH (11:00)
[2019-04-19] MEDS: busPIRone 5 MG TAB PO SCH (12:00)
[~2019-04-19 14:01] MED LIST changes: -ACET650S3 PR; -CLOP75TA2 PO; -DULC10SU2 PR; -ENEMENE PR; -MILKSUS3 PO; -MULTTAB62 PO; -NITR4TASL SL; -PANT20TA2 PO; -ROZE8TAB16 PO; -SENN-23 PO; +SIMV40TA2; -SIMV40TA20; -TOPR25TA PO
[2019-04-19 15:08] LABS: BASO # 0.1 10^3/uL (0.0-0.2); BASO % 0.7 % (0.0-1.0); EOS # 0.2 10^3/uL (0.0-0.5); EOS % 2.1 % (0.0-3.0); HEMOGLOBIN 10.8 g/dl (12.0-15.5); LYMPH # 1.7 10^3/uL (1.5-5.0); LYMPH % 18.4 % (24.0-44.0); MEAN CORPUSCULAR HEMOGLOBIN 32.4 pg (27.0-33.0); MEAN CORPUSCULAR HGB CONC 32.7 g/dl (32.0-36.5); MEAN CORPUSCULAR VOLUME 99.1 fl (80.0-96.0); MONO % 10.1 % (0.0-5.0); NEUTROPHILS # 6.5 10^3/uL (1.5-8.5); NEUTROPHILS % 68.4 % (36.0-66.0); PLATELET COUNT, AUTOMATED 309 10^3/uL (150-450); RED BLOOD COUNT 3.33 10^6/uL (4.00-5.40); WHITE BLOOD COUNT 9.5 10^3/uL (4.0-10.0)
--- NOTE | 2019-04-19 15:36 | REP ---
PORTABLE CHEST: AP portable view of the chest is performed and compared to a prior study of 03/12/2019. There is cardiomegaly. There is pleural and parenchymal opacity in the right lung base which is stable. There are calcified granulomas in the left lung base. Mediastinal silhouette is unchanged. There are multiple sternal wires and mediastinal clips present. IMPRESSION: Cardiomegaly. Pleural and parenchymal changes on the right inferiorly are stable compared to prior study of 03/12/2019. Electronically Signed by Ilan Reyes MD 04/20/2019 09:59 A
[2019-04-19 15:42] LABS: ALBUMIN 3.4 GM/DL (3.2-5.2); BILIRUBIN,DIRECT 0.1 MG/DL (0.0-0.2); BILIRUBIN,TOTAL 0.3 MG/DL (0.2-1.0); CALCIUM LEVEL 8.8 MG/DL (8.8-10.2); CREATININE FOR GFR 3.09 MG/DL (0.55-1.30); GLOMERULAR FILTRATION RATE 15.2 (>32); MB/CK RELATIVE INDEX 2.22 (< OR =4); POTASSIUM SERUM 5.4 MEQ/L (3.5-5.1); TOTAL PROTEIN 6.2 GM/DL (6.4-8.2); TROPONIN I 0.03 NG/ML (< 0.10)
--- NOTE | 2019-04-19 15:52 | REP ---
CT brain without contrast: History: Dizziness. Comparison CT study March 12, 2019. 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 Bone window settings demonstrate an intact bony calvarium. There is heavy vascular calcification in the distal carotid arteries and to a lesser extent distal vertebral arteries. Visualized paranasal sinuses are clear. No intraorbital abnormality is appreciated. On soft tissue window settings, there is generalized volume loss as before. Extensive periventricular white matter low density areas are seen in the supratentorial brain consistent with small vessel atherosclerotic changes as before. There is no evidence of acute cerebral infarction. There is no evidence of hemorrhage, mass, extra-axial fluid collection, or midline shift. Impression: Extensive vascular calcification, generalized atrophy, small vessel atherosclerotic changes as before. No acute intracranial abnormality. Electronically Signed by Jeffery Armenta MD 04/19/2019 05:18 P
[2019-04-19] MEDS: NS 1,000 ML IV SCH (17:43)
[2019-04-19] MEDS ORDERED: DULC10SU2 PR (18:36)
[2019-04-19] MEDS ORDERED: ACET1TAB55 PO (18:36)
[2019-04-19] MEDS ORDERED: ACET650S3 PR (18:36)
[2019-04-19] MEDS ORDERED: SENN-23 PO (18:36)
[2019-04-19] MEDS ORDERED: ENEMENE PR (18:36)
[2019-04-19] MEDS ORDERED: MILKSUS3 PO (18:36)
[2019-04-19] MEDS ORDERED: MULTTAB62 PO (18:36)
[2019-04-19] MEDS ORDERED: ALLO10TA PO (18:36)
[2019-04-19] MEDS ORDERED: ROZE8TAB16 PO (18:36)
[2019-04-19] MEDS ORDERED: ASPIRIN 325 MG TAB PO ONE (20:15)
[2019-04-19] MEDS ORDERED: OMEPRAZOLE 20 MG CAP PO ONE (21:00)
[2019-04-19] MEDS ORDERED: BISACODYL 10 MG SUPP PR PRN (21:00)
[2019-04-19] MEDS ORDERED: FAMOTIDINE 20 MG TAB PO SCH (21:00)
--- NOTE | 2019-04-19 21:16 | REPVR ---
PROCEDURE INFORMATION: Exam: MR Head Without Contrast Exam date and time: 04/19/2019 8:17 PM Clinical history: 88 years old, female; Other: Left sided tingling, chest pain, nki priors on pacs; Additional info: CVA TECHNIQUE: Imaging protocol: MR of the head without contrast. COMPARISON: CT Head without contrast 04/19/2019 3:18 PM FINDINGS: Brain: There is volume loss. There is extensive hyperintense signal in the periventricular white matter. There are multiple additional small hyperintense foci scattered throughout the white matter. This is most consistent with chronic microvascular disease. There are multiple old basal ganglia and white matter lacunar infarcts. DWI image 24 demonstrates a 7 mm right superior frontal focus of restricted diffusion. Gradient echo images demonstrate no evidence of hemorrhage. There is no extra-axial collection. There is no mass. Ventricles: There is no hydrocephalus. Bones/joints: Unremarkable. Soft tissues: Unremarkable. Sinuses: Normal as visualized. No acute sinusitis. Mastoid air cells: Normal as visualized. No mastoid effusion. Orbits: Unremarkable. IMPRESSION: 1. Extensive chronic microvascular disease with multiple old lacunar infarcts. 2. 7 mm acute right superior frontal lacunar infarct. Electronically signed by: Alirio Boothe On 04/19/2019 21:16:25 PM
--- NOTE | 2019-04-19 21:16 | REPVR ---
PROCEDURE INFORMATION: Exam: MR Angiogram Head Without Contrast, Arteries Exam date and time: 04/19/2019 8:17 PM Clinical history: 88 years old, female; Other: Left sided tingling, chest pain, nki priors on pacs; Additional info: CVA TECHNIQUE: Imaging protocol: MR angiogram head without contrast. Exam focused on the arteries. 3D rendering: MIP reconstructed images were created and reviewed. COMPARISON: CT Head without contrast 04/19/2019 3:18 PM FINDINGS: Right internal carotid artery: Unremarkable. Intracranial segment is patent with no significant stenosis. No aneurysm. Right anterior cerebral artery: Unremarkable. No occlusion or significant stenosis. No aneurysm. Right middle cerebral artery: Unremarkable. No occlusion or significant stenosis. No aneurysm. Right posterior cerebral artery: There is a severe stenosis of the P2 segment of the right posterior cerebral artery. Right vertebral artery: The right vertebral artery is hypoplastic. The right vertebral artery terminates at the level of the right PICA. Its distal segment is aplastic. Left internal carotid artery: Unremarkable. Intracranial segment is patent with no significant stenosis. No aneurysm. Left anterior cerebral artery: Unremarkable. No occlusion or significant stenosis. No aneurysm. Left middle cerebral artery: Unremarkable. No occlusion or significant stenosis. No aneurysm. Left posterior cerebral artery: There is a short segment severe stenosis of the P2 segment of the left posterior cerebral artery. Left vertebral artery: There is a dominant left vertebral artery. No stenosis. No aneurysm. 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 No occlusion or significant stenosis. No aneurysm. IMPRESSION: 1. Dominant left vertebral artery. 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 2. Bilateral severe posterior cerebral artery stenoses. 3. No large vessel occlusion. Electronically signed by: Alirio Boothe On 04/19/2019 21:16:00 PM
--- NOTE | 2019-04-19 22:00 | ECGEPIP ---
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
--- NOTE | 2019-04-19 22:01 | HPEPDOC ---
[facility] Medical History & Physical Date of Admission Apr 19, 2019 Date of Service: Apr 19, 2019 Primary Care Physician: Mckinley Mejia MD Attending Physician: MONALISA GAN MD History and Physical CHIEF COMPLAINT: Dizziness/weakness HISTORY OF PRESENT ILLNESS: Patient is an 88-year-old female, resident of [facility] medical history significant for prior CVA, CHF, four-vessel CABG, hypertension, pulmonary embolism, IBS, CKD, hypothyroid, who presents emergency department via EMS after sustaining a syncopal episode. Patient reports that she was seated quietly in the dining hudson of the custodial awaiting for lunch when she began to feel tingling down her left arm, fatigue and "feeling as if her head was floating ". Patient denies any loss of consciousness, myoclonic movements, bladder/bowel incontinence. She states this is never happened before. Patient reports being in her prior state of health in the preceding weeks. Upon presentation to the emergency department, patient reported that her symptoms h ave largely resolved, she was alert and oriented to person place and time and did not appear in any acute distress. Vital signs are performed on the patient to be mildly hypertensive at 158/70. Patient's oxygen saturation was 97% on room air with a respiratory rate of 18. Pulse was found to be regular at 65 bpm. Patient was afebrile. Laboratory workup to demonstrates an AK overlying patient's baseline CKD, for which she follows with Dr. Duarte. Creatinine was found to be 3.09 increased from patient's baseline of roughly 2.5. Patient was started on IV hydration with normal saline. Head CT was negative for any acute pathology. Brain MRI significant for 7 mm acute superior frontal lacunar infar ct. Brain MRA demonstrates bilateral severe posterior cerebral artery stenosis. Patient was given 325 aspirin emergency department. Hospitalist team was contacted for admission for further evaluation and management. PAST MEDICAL HISTORY: Hypertension Hypercholesterolemia CHF CAD S/P NC, 2008 GERD IBS CKD stage IV Hypothyroid Osteoporosis History of TIA Left-sided coloboma limiting vision External hemorrhoids Depression PAST SURGICAL HISTORY: Basal cell carcinoma from right face Four-vessel CABG Carotid endarterectomy, 2018 Hemorrhoidectomy Total right hip replacement Repair of right distal femur fracture, 2010 SOCIAL HISTORY: Marital status: Resides in: 7th floor of [facility] Employment: Retired Tobacco use: Denies ETOH: Denies any recent alcohol use or intoxication Illicit drug use: Denies any illicit/IV drug use FAMILY HISTORY: Noncontributory given patient's advanced vintage Patient is an only child. Patient's mother and father are with a history of cardiac disease. ALLERGIES: Tree nuts, penicillins, sulfonamide antibiotics, azithromycin, calcitriol, doxycycline and wheat REVIEW OF SYSTEMS: CONSTITUTIONAL: Patient denies any recent fevers, chills, night sweats, changes in weight, difficulty sleeping HEENT: Patient reports occasional headaches related to previously diagnosed sinus infections. Patient does have difficulty with left-sided vision secondary to coloboma. Right-sided PERRLA. EMOI. Sclera nonicteric Denies any sinus pain/pressure, nasal congestion or rhinorrhea. No sore throat or difficulty swallowing. Patient denies any earache. CARDIOVASCULAR: Patient did report mild, intermittent substernal chest pain at the time of her episode this afternoon. Pain seemingly resolved within minutes. She denies any recent history of chest pain or discomfort. RESPIRATORY: Patient reports chronic history of shortness of breath. No recent cough, wheezing. Patient does use 2 pillows to sleep at night. GASTROINTESTINAL: Patient does have a history of reflux for which she takes medication. She does report a history of irritable bowel and external hemorrhoids. Denies any recent nausea, vomiting, abdominal pain. Patient does report intermittent constipation. GENITOURINARY: Denies any difficulty urinating including retention, urgency, frequency, hesitancy, dysuria SKIN: Denies any new bruising, rashes, erythema MUSCULOSKELETAL: Patient reports intermittent low back pain. She denies any acute pain at this time. NEUROLOGICAL: Reports left sided arm numbness from mid arm down to both volar and dorsal aspects of her hand fingertips. She denies any subjective weakness. PSYCHIATRIC: Patient does have a history of depression for which she takes medication. ENDOCRINE: Patient does report a history of prediabetes. Denies any polyuria, polydipsia or polyphagia. HEMATOLOGIC/LYMPHATIC: No recent history of easy bruising or bleeding. HOME MEDICATIONS: Please see below. PHYSICAL EXAMINATION: VITAL SIGNS: Temperature 97.7, pulse 71, respiratory rate 18, blood pressure 169/72 (104), pulse oximetry 98 % on room air. GENERAL APPEARANCE: Patient interviewed and examined in the emergency room. Patient was found to be lying comfortably in her stretcher. No acute distress, talking in full sentences. Alert and oriented 3. Familiar with her medical history and able to actively participate in her care. HEENT: Normocephalic, atraumatic, left eye does demonstrate a coloboma was limited vision. Patient does wear bifocals. External auditory canals are clear and patent. Tympanic membranes are normal. Nares are patent nonerythematous, no nasal congestion noted. No maxillary sinus tenderness. No posterior pharyngeal erythema noted. NECK: Supple, no lymphadenopathy, subtle carotid bruit appreciated bilaterally CARDIOVASCULAR: Regular rate and rhythm, normal S1 and S2, murmur consistent with aortic stenosis appreciated 2/5 LUNGS: Clear to auscultation bilaterally, free of wheezes rales or rhonchi ABDOMEN: Soft, nontender, nondistended, no organomegaly, bowel sounds present throughout EXTREMITIES: No peripheral edema, or clubbing, no calf tenderness bilaterally NEUROLOGICAL: Patient is alert and oriented to person place and time. 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 Symmetric strength lower extremities. Equal sensorium in both upper and lower extremities bilaterally. PSYCHIATRIC: Mood and affect are appropriate. LABORATORY DATA: See below. IMAGING: Chest x-ray (04/19/19): Cardiomegaly, pleural-parenchymal changes on the right inferior that are stable compared to prior study on 03/12/19. Head CT (04/19/19): Extensive vascular calcification, generalized atrophy, small vessel atherosclerotic changes as before. No acute intracranial abnormality. Brain MRI (04/09/19): Extensive chronic microvascular disease multiple old lacunar infarcts. A 7 mm acute right superior frontal lacunar infarct. Brain MRA (04/09/19): Dominant left vertebral artery. 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 Bilateral severe posterior cerebral artery stenosis. No large vessel occlusion. MICROBIOLOGY: Please see below. ASSESSMENT: Patient is an 88-year-old female, past medical history significant for NC s/p 4 vessel CABG, TIA, CHF, hypertension and chronic kidney disease presented to the emergency department after sustaining a single episode of headache and left arm numbness and tingling lasting approximately 1 minute. In the emergency department patient had a negative neurologic exam, laboratory investigation demonstrated an MICHAEL overlying patient's stage IV chronic kidney disease. CT of the head was negative for any acute pathology. MRI did demonstrate a frontal lacunar infarct. MRA of the brain showed bilateral severe posterior cerebral artery stenosis. PLAN: Right Frontal Lacunar Infarct -Patient received aspirin 325 while in the emergency department. -MRA of the brain demonstrated severe bilateral stenosis of the posterior cerebral arteries. -Patient will be continued on dual antiplatelet therapy with aspirin 81 mg and 75 mg of Plavix. -Will hold patient's home Imdur with a goal of maintaining a systolic blood pressure of 140-180 mmHg for the next 72 hours. -Carotid ultrasound and echocardiogram ordered to etiology. -Will consider statin therapy for statin therapy for secondary prevention. -Case was discussed with on-call neurologist and a consult placed. MICHAEL -Creatinine of 3.09, increased from baseline of roughly 2.3. Patient carries a history of CKD stage IV. -MICHAEL classified as stage I given a 1.34 to increase in serum creatinine. -Continue IV hydration for presumed prerenal azotemia. No signs of intrinsic renal infection. -Plan to monitor BUN/Cr in the am with BMP to ensure improvement. -Famotidine changed to 10 mg daily given patient's current creatinine clearance. -Avoid nephrotoxic medications -Consider nephrology consult if MICHAEL fails to resolve GERD -Hold patient's home PPI in the setting of Plavix and patient's MICHAEL Hypertension -Goal of maintaining systolic blood pressure of 640092 mmHg for the next 72 hours -Patient's Imdur has been held at this time. Irritable bowel - Continue famotidine, patient's dose decreased from 20 mg to 10 mg given her current renal function. Hypothyroid -Continue patient on home levothyroxine DVT prophylaxis: TEDS and sequentials Vital Signs Vital Signs Date Time Temp Pulse Resp B/P (MAP) Pulse Ox O2 Delivery O2 Flow Rate FiO2 04/19/19 19:38 97.7 71 18 169/72 (104) 98 Room Air Laboratory Data Labs 24H Laboratory Tests 2 04/19/19 14:41: Immature Granulocyte % (Auto) 0.3, White Blood Count 9.5, Red Blood Count 3.33L, Hemoglobin 10.8L, Hematocrit 33.0L, Mean Corpuscular Volume 99.1H, Mean Corpuscular Hemoglobin 32.4, Mean Corpuscular Hemoglobin Concent 32.7, Red Cell Distribution Width 14.5, Platelet Count 309, Neutrophils (%) (Auto) 68.4H, Lymphocytes (%) (Auto) 18.4L, Monocytes (%) (Auto) 10.1H, Eosinophils (%) (Auto) 2.1, Basophils (%) (Auto) 0.7, Neutrophils # (Auto) 6.5, Lymphocytes # (Auto) 1.7, Monocytes # (Auto) 1.0H, Eosinophils # (Auto) 0.2, Basophils # (Auto) 0.1, Nucleated Red Blood Cells % (auto) 0.0, Anion Gap 13, Glomerular Filtration Rate 15.2L, Blood Urea Nitrogen 38H, Creatinine 3.09H, Sodium Level 144, Potassium Level 5.4H, Chloride Level 111H, Carbon Dioxide Level 20L, Calcium Level 8.8, Aspartate Amino Transf (AST/SGOT) 15, Alanine Aminotransferase (ALT/SGPT) 14, Total Creatine Kinase 45, Alkaline Phosphatase 73, Total Bilirubin 0.3, Direct Bilirubin 0.1, Total Protein 6.2L, Albumin 3.4, Creatine Kinase MB 1.0, Creatine Kinase MB Relative Index 2.22, Troponin I 0.03, Albumin/Globulin Ratio 1.21, Lipase 195 04/19/19 17:54: Urine Color YELLOW, Urine Appearance HAZY, Urine pH 6.0, Urine Specific Jackson 1.010, Urine Protein NEGATIVE, Urine Glucose (UA) NEGATIVE, Urine Ketones NEGATIVE, Urine Blood NEGATIVE, Urine Nitrite NEGATIVE, Urine Bilirubin NE GATIVE, Urine Urobilinogen 0.2, Urine Leukocyte Esterase TRACEH, Urine WBC (Auto) 3, Urine RBC (Auto) 1, Urine Hyaline Casts (Auto) 0, Urine Bacteria (Auto) NEGATIVE, Urine Squamous Epithelial Cells 5, Urine Sperm (Auto) CBC/BMP Laboratory Tests 04/19/19 14:41 Red Blood Count 3.33 L, Mean Corpuscular Volume 99.1 H, Mean Corpuscular Hemoglobin 32.4, Mean Corpuscular Hemoglobin Concent 32.7, Red Cell Distribution Width 14.5, Neutrophils (%) (Auto) 68.4 H, Lymphocytes (%) (Auto) 18.4 L, Monocytes (%) (Auto) 10.1 H, Eosinophils (%) (Auto) 2.1, Basophils (%) (Auto) 0.7, Neutrophils # (Auto) 6.5, Lymphocytes # (Auto) 1.7, Monocytes # (Auto) 1.0 H, Eosinophils # (Auto) 0.2, Basophils # (Auto) 0.1, Calcium Level 8.8, Aspartate Amino Transf (AST/SGOT) 15, Alanine Aminotransferase (ALT/SGPT) 14, Total Creatine Kinase 45, Alkaline Phosphatase 73, Total Bilirubin 0.3, Direct Bilirubin 0.1, Total Protein 6.2 L, Albumin 3.4 Microbiology Microbiology 04/19/19 Urine Culture, Received Pending Home Medications Scheduled Allopurinol (Allopurinol) 100 Mg Tablet, 100 MG PO DAILY Aspirin (Aspirin) 325 Mg Tablet, 325 MG PO DAILY Buspirone HCl (Buspirone HCl) 5 Mg Tablet, 5 MG PO DAILY TAKES AT NOON Esomeprazole Magnesium (Esomeprazole Magnesium Dr) 40 Mg Capsule.dr, 40 MG PO DAILY Famotidine (Famotidine) 20 Mg Tablet, 20 MG PO QHS Isosorbide Mononitrate (Isosorbide Mononitrate ER) 30 Mg Tab.er.24h, 30 MG PO DAILY Levothyroxine Sodium (Levothyroxine Sodium) 50 Mcg Tablet, 50 MCG PO DAILY @ 1100 Metoprolol Succinate (Metoprolol Succinate) 50 Mg Tab.er.24h, 50 MG PO DAILY Mirtazapine (Remeron) 15 Mg Tablet, 15 MG PO QHS Multivitamin with Minerals (Multivitamins with Minerals) 1 Each Tablet, 1 TAB PO DAILY Paricalcitol (Paricalcitol) 1 Mcg Capsule, 1 MCG PO 3XW MON, WED, FRI Quetiapine Fumarate (Quetiapine Fumarate) 50 Mg Tablet, 50 MG PO DAILY @ 1200 Ramelteon (Rozerem) 8 Mg Tablet, 8 MG PO QHS Sennosides/Docusate Sodium (Senna-S Tablet) 1 Each Tablet, 2 TAB PO BID Sucralfate (Sucralfate) 1 Gm Tablet, 1 GM PO DAILY Scheduled PRN Acetaminophen (Acetaminophen) 650 Mg Supp.rect, [address] Q4H PRN for PAIN / FEVER Acetaminophen (Acetaminophen) 325 Mg Tablet, 650 MG PO Q4H PRN for PAIN Bisacodyl (Dulcolax) 10 Mg Supp.rect, [address] DAILY PRN for CONSTIPATION Docusate Sodium (Stool Softener) 100 Mg Capsule, 100 MG PO DAILY PRN for CONSTIPATION Magnesium Hydroxide (Milk of Magnesia) 400 Mg/5 Ml Oral.susp, 2,400 MG PO DAILY PRN for CONSTIPATION Sodium Phosphate,Mcduffie-Dibasic (Enema) 133 Ml Enema, [address] DAILY PRN for CONSTIPATION Allergies Coded Allergies: Nut Tree (Verified Allergy, Unknown, HIVES, 03/12/19) Penicillins (Verified Allergy, Unknown, 03/12/19) and penicillin cross reactors Sulfa (Sulfonamide Antibiotics) (Verified Allergy, Unknown, 03/12/19) and sulfa cross reactors azithromycin (Verified Allergy, Unknown, 03/12/19) calcitriol (Verified Allergy, Unknown, 03/12/19) doxycycline (Verified Allergy, Unknown, 03/12/19) wheat (Verified Allergy, Unknown, 03/12/19) A-FIB/CHADSVASC A-FIB History Current/History of A-Fib/PAF?: No GME ATTESTATION GME ATTESTATION My faculty preceptor for this patient encounter was physically present during the encounter and was fully available. All aspects of the patient interview, examination, medical decision making process, and medical care plan development were reviewed and approved by the faculty preceptor. The faculty preceptor is aware and concurs with the plan as stated in the body of this note and will attest to such by his/her cosignature. ATTENDING NOTE I saw and examined the patient. Reviewed with the resident. I agree with his assessment and plan. DAVIS TORREZ DO Apr 19, 2019 22:01 MONALISA GAN MD Apr 20, 2019 02:14
[2019-04-19] MEDS ORDERED: PILL CUTTER 1 EACH XX PRN (22:15)
[2019-04-19 23:26] VITALS: BP 137/92
[2019-04-19] MEDS: SENOKOT S TAB PO SCH (23:40)
[2019-04-19] MEDS: MIRTAZAPINE 15 MG TAB PO SCH (23:41)
[2019-04-20] MEDS: NS 1,000 ML IV SCH (04:00)
[2019-04-20 06:00] VITALS: BP 130/87
[2019-04-20] MEDS ORDERED: ISOSORBIDE MON. (IMDUR) 30 MG XR TAB PO SCH (09:00)
[2019-04-20] MEDS: ASPIRIN 81 MG CHEW TABLET PO SCH (09:08)
[2019-04-20] MEDS: METOPROLOL SUCC (TopROL XL) 50MG **XL** TAB PO SCH (09:08)
[2019-04-20] MEDS: SENOKOT S TAB PO SCH ×2 (09:08→20:38)
[2019-04-20] MEDS: CLOPIDOGREL 75 MG TAB PO SCH (09:09)
[2019-04-20] MEDS: ALLOPURINOL 100 MG TAB PO SCH (09:09)
[2019-04-20 09:51] LABS: HEMATOCRIT 35.8 % (36.0-47.0); HEMOGLOBIN 11.7 g/dl (12.0-15.5); MEAN CORPUSCULAR HEMOGLOBIN 32.3 pg (27.0-33.0); MEAN CORPUSCULAR HGB CONC 32.7 g/dl (32.0-36.5); MEAN CORPUSCULAR VOLUME 98.9 fl (80.0-96.0); PLATELET COUNT, AUTOMATED 340 10^3/uL (150-450); RED BLOOD COUNT 3.62 10^6/uL (4.00-5.40); WHITE BLOOD COUNT 8.3 10^3/uL (4.0-10.0)
[2019-04-20 10:10] LABS: CALCIUM LEVEL 8.7 MG/DL (8.8-10.2); CREATININE FOR GFR 2.58 MG/DL (0.55-1.30); GLOMERULAR FILTRATION RATE 18.7 (>32); POTASSIUM SERUM 5.1 MEQ/L (3.5-5.1)
[2019-04-20] MEDS: LEVOTHYROXINE 50MCG TABLET (0.05MG) PO SCH (11:05)
[2019-04-20] MEDS: busPIRone 5 MG TAB PO SCH (12:14)
--- NOTE | 2019-04-20 12:25 | IPNPDOC ---
Text Note Date of Service The patient was seen on 04/20/19. NOTE Subjective: No complaints this morning, has been refusing carotid ultrasound but in speaking with her proxy, seems like she was able to convince her to get it and will attempt later today. Objective: VITAL SIGNS: Please see below. GENERAL APPEARANCE: No acute distress, talking in full sentences. Alert and oriented 3. HEENT: Normocephalic, atraumatic, left eye does w/ limited vision. Wears bifocals. EOMI, PERRLA, anicteric, clear posterior oropharynx CARDIOVASCULAR: Regular rate and rhythm, normal S1 and S2, murmur consistent with aortic stenosis appreciated 2/5 LUNGS: Clear to auscultation bilaterally, no wheezing, rales or rhonchi ABDOMEN: Soft, nontender, nondistended, no organomegaly, bowel sounds present throughout EXTREMITIES: No peripheral edema, or clubbing, no calf tenderness bilaterally NEUROLOGICAL: Patient is alert and oriented to person place and time. 5/5 strength appropriate and symmetric in all 4 limbs. PSYCHIATRIC: Mood and affect are appropriate. LABORATORY DATA: Please see below. IMAGING: TTE: pending carotid ultrasound: declining 04/19/2019: CXR: Pleural and parenchymal changes on the right inferiorly are stable compared to prior study of 03/12/2019. 04/19/2019: noncontrast head CT: Extensive vascular calcification, generalized atrophy, small vessel atherosclerotic changes as before. No acute intracranial abnormality. 04/19/2019: MRI brain without contrast: 1. Extensive chronic microvascular disease with multiple old lacunar infarcts. 2. 7 mm acute right superior frontal lacunar infarct 04/19/2019: MRA brain 1. Dominant left vertebral artery. 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 2. Bilateral severe posterior cerebral artery stenoses. 3. No large vessel occlusion. Assessment: 88-year-old woman with CAD s/p 4 vessel CABG, prior CVA, CHF, hypertension and CKD, resident at [facility] who was brought into the ED via EMS for near syncope with a transient headache and left arm numbness and tingling, now found to have frontal lacunar infarct on brain MRI and MRA of the brain showing bilateral severe posterior cerebral artery stenosis, with, a now recovered stable neurologic e xam, and improving MICHAEL on CKD. At this time, she was started on plavix and is on DAPT per neurology consult and is pending a TTE and carotid US with plan for discharge back to [facility] with continuing PT. PLAN: Right Frontal Lacunar Infarct -Patient received aspirin 325 while in the emergency department. -MRA of the brain demonstrated severe bilateral stenosis of the posterior cerebral arteries. -Patient will be continued on dual antiplatelet therapy with aspirin 81 mg and 75 mg of Plavix. -Will continue holding patient's home Imdur with a goal of maintaining a syst olic blood pressure of 140-180 mmHg for the next 72 hours. -Carotid ultrasound and echocardiogram pending -Will defer statin therapy for statin therapy for secondary prevention given her age and unlikely benefit in the short term -Neurology was consulted, appreciate recs MICHAEL : Likely prerenal, much improved after hydration. -Initial Creatinine of 3.09, increased from baseline of roughly 2.3. Patient carries a history of CKD stage IV. Now ~2.5 and close to baseline. -continue to monitor BUN/Cr while inpatient - DC IV fluids, taking PO -Continue famotidine 10 mg daily given patient's current creatinine clearance. -Avoid nephrotoxic medications GERD -Continue holding patient's home PPI in the setting of Plavix and patient's MICHAEL, continue famotidine Hypertension -Goal of maintaining systolic blood pressure of 776928 mmHg for the next 72 hours -continue holding Imdur at this time Irritable bowel - Continue famotidine, patient's dose decreased from 20 mg to 10 mg given her current renal function. Hypothyroid -Continue patient on home levothyroxine DVT prophylaxis: TEDS and sequentials, start heparin 500 Q8H subcutaneously for DVT ppx VS,Fishbone, I+O VS, Fishbone, I+O Laboratory Tests 04/19/19 14:41 Red Blood Count 3.33 L, Mean Corpuscular Volume 99.1 H, Mean Corpuscular Hemoglobin 32.4, Mean Corpuscular Hemoglobin Concent 32.7, Red Cell Distribution Width 14.5, Neutrophils (%) (Auto) 68.4 H, Lymphocytes (%) (Auto) 18.4 L, Monocytes (%) (Auto) 10.1 H, Eosinophils (%) (Auto) 2.1, Basophils (%) (Auto) 0.7, Neutrophils # (Auto) 6.5, Lymphocytes # (Auto) 1.7, Monocytes # (Auto) 1.0 H, Eosinophils # (Auto) 0.2, Basophils # (Auto) 0.1, Calcium Level 8.8, Aspartate Amino Transf (AST/SGOT) 15, Alanine Aminotransferase (ALT/SGPT) 14, Total Creatine Kinase 45, Alkaline Phosphatase 73, Total Bilirubin 0.3, Direct Bilirubin 0.1, Total Protein 6.2 L, Albumin 3.4 04/20/19 09:03 Red Blood Count 3.62 L, Mean Corpuscular Volume 98.9 H, Mean Corpuscular Hemoglobin 32.3, Mean Corpuscular Hemoglobin Concent 32.7, Red Cell Distribution Width 14.2, Calcium Level 8.7 L Vital Signs Date Time Temp Pulse Resp B/P (MAP) Pulse Ox O2 Delivery O2 Flow Rate FiO2 04/20/19 09:08 77 135/95 04/20/19 06:00 97.8 18 95 04/19/19 21:00 Room Air I&O- Last 24 Hours up to 6 AM 04/20/19 05:59 Intake Total 0 ml Output Total 400 ml Balance -400 ml LUIS POLLARD MD Apr 20, 2019 12:11
[2019-04-20 14:00] VITALS: BP 141/97
[2019-04-20] MEDS: HEPARIN SOD (PORCINE) 5000 UNITS/ML VIAL SQ SCH ×2 (14:26→21:06)
[2019-04-20] MEDS: MIRTAZAPINE 15 MG TAB PO SCH (20:38)
[2019-04-20] MEDS ORDERED: FAMOTIDINE 20 MG TAB PO SCH (21:00)
[2019-04-20 22:00] VITALS: BP 142/90
--- NOTE | 2019-04-20 22:25 | REPVR ---
PROCEDURE INFORMATION: Exam: US Duplex Bilateral Extracranial Arteries Exam date and time: 04/20/2019 8:15 PM Clinical history: 88 years old, female; Altered mental status/memory loss; Confusion or disorientation; Prior surgery; Surgery date: 6+ months; Surgery type: Left endarterectomy; Additional info: CVA TECHNIQUE: Imaging protocol: Real-time Duplex ultrasound scan of the Bilateral carotid and vertebral arteries combining cameron scale, color Doppler and spectral waveform analysis. COMPARISON: US - Duplex,carotid (complete) 07/13/2018 3:12:29 PM FINDINGS: Right common carotid artery: There is irregular calcified and noncalcified plaque in the distal right common carotid artery and carotid bulb at least moderate stenosis. No occlusion. Right internal carotid artery: Estimated greater than 70% stenosis in the right ICA. No occlusion. There is spectral broadening in the waveform indicative of turbulent flow. Right ICA/CCA ratio: Within normal limits. Right external carotid artery: No significant stenosis in the origin. Right vertebral artery: Unremarkable. Antegrade flow Left common carotid artery: There is fairly smooth noncalcified plaque in the left common carotid artery and carotid bulb. No occlusion. Left internal carotid artery: Estimated 50-69% stenosis in the left ICA. Left ICA/CCA ratio: Within normal limits. Left external carotid artery: Suspected severe stenosis of the origin of the left ECA. Left vertebral artery: Unremarkable. Antegrade flow. IMPRESSION: 1. Severe right ICA stenosis. 2. Moderate left ICA stenosis. 3. Suspected severe stenosis of the origin of the left ECA. 4. Plaque in the bilateral common carotid arteries and carotid bulbs. COMMENT: Carotid Stenosis Reference using SRU criteria: Mild: less than 50% stenosis. ICA PSV is less than 125 cm/second and plaque or intimal thickening is visible. Moderate: 50-69% stenosis. ICA PSV is 125 to 230 cm/second and plaque is visible. Severe: 70-94% stenosis. ICA PSV is more than 230 cm/second and visible plaque and lumen narrowing are seen. Near occlusion: 95-99% stenosis. ICA PSV is variable and significant plaque and luminal narrowing are seen. Occluded: 100% stenosis. No flow identified. Electronically signed by: Jonh Gavin On 04/20/2019 22:24:48 PM
[2019-04-21] MEDS: HEPARIN SOD (PORCINE) 5000 UNITS/ML VIAL SQ SCH (05:48)
[2019-04-21 06:00] VITALS: BP 149/88
[2019-04-21 06:13] LABS: HEMATOCRIT 35.4 % (36.0-47.0); HEMOGLOBIN 11.5 g/dl (12.0-15.5); MEAN CORPUSCULAR HEMOGLOBIN 32.9 pg (27.0-33.0); MEAN CORPUSCULAR HGB CONC 32.5 g/dl (32.0-36.5); MEAN CORPUSCULAR VOLUME 101.1 fl (80.0-96.0); PLATELET COUNT, AUTOMATED 301 10^3/uL (150-450); WHITE BLOOD COUNT 8.7 10^3/uL (4.0-10.0)
[2019-04-21 06:46] LABS: CALCIUM LEVEL 8.7 MG/DL (8.8-10.2); CREATININE FOR GFR 2.33 MG/DL (0.55-1.30); POTASSIUM SERUM 4.1 MEQ/L (3.5-5.1)
[2019-04-21] MEDS ORDERED: CLOP75TA2 PO (07:05)
--- NOTE | 2019-04-21 08:55 | CR ---
DATE OF CONSULTATION: 04/20/2019 REQUESTING PROVIDER: Dr. Juan Jose Mckeon REASON FOR CONSULTATION: Suspected acute stroke. HISTORY OF PRESENT ILLNESS: The patient is an 88-year-old female with past medical history of prior stroke. The patient is living currently at [facility]. The patient is a poor historian. She had transient episode of left arm weakness. The patient subsequently states that she was at the dinner table, stood up and felt like her head was not attached to her body. The patient felt weak all over. She cannot recall how many minutes these symptoms lasted. When the patient was seen in the hospital, she was noted to be essentially back to baseline. The patient's MRI suggested a severe right frontal ischemic stroke. After reviewing the imaging, it is possible that the stroke is actually subacute. The patient does have hyperreflexia in all four extremities. The patient will need to have an MRI of the cervical spine to rule out any cord compression leading to any of her symptoms of weakness in all four limbs and hyperreflexia. The patient is currently on aspirin 81 mg and Plavix 75 mg. The Plavix was started after MR angiogram reported severe stenosis of bilateral posterior cerebral arteries. PAST MEDICAL HISTORY: Hypertension, hyperlipidemia, congestive heart failure (CHF), coronary artery disease (CAD), status post myocardial infarction in 2007, gastroesophageal reflux disease, irritable bowel syndrome (IBS), benign prostatic hypertrophy (BPH), hypothyroidism, osteoporosis, documentation of past stroke though the patient denies that, left-sided coloboma limiting vision, external hemorrhoids, depression. PAST SURGICAL HISTORY: Basal cell carcinoma right face, four vessel coronary artery bypass graft (CABG), carotid endarterectomy 2017, hemorrhoidectomy, total right hip replacement, repair of right distal femur fracture in 2010. SOCIAL HISTORY: The patient denies use of any tobacco, alcohol or illicit drugs. FAMILY HISTORY: Noncontributory. Both parents with heart disease. ALLERGIES: - TREE NUTS - PENICILLIN - SULFONAMIDES - AZITHROMYCIN - CALCITRIOL - DOXYCYCLINE - WHEAT MEDICATIONS IN THE HOSPITAL: - heparin 5000 subcu every 8 hours - propofol 50 mg - aspirin 81 mg - Plavix 75 mg - Remeron 15 mg - BuSpar 5 mg - levothyroxine 50 mcg - allopurinol 100 mg - Pepcid PHYSICAL EXAMINATION: Blood pressure 141/97, pulse rate 73, respiratory rate is 20, oxygenation 94% on room air, and temperature is 98.6 degrees Fahrenheit. The patient is awake, alert and not very cooperative. The patient seems very agitated, often screaming, she is upset that Dr. Justice is not involved in her care. The patient is noted to have extraocular movements without nystagmus. There is no facial asymmetry on activation. Palate elevates symmetrically. Tongue is midline. The patient can deviate tongue towards the left and right voluntarily. Sensation V1, V2 and V3 is intact to light touch. Hearing is intact to finger rub. There does not appear to be any pronator drift. The patient has normal 5/5 strength of bilateral handgrip, biceps, triceps, deltoid. The patient has 4/5 weakness bilateral iliopsoas and quadriceps, and anterior tibialis 5/5. Sensory is intact to touch in all four extremities. Deep tendon reflexes are 3+ throughout. Gait deferred. ASSESSMENT: 88-year-old female with transient left upper extremity weakness, possible transient weakness of all four extremities with symptoms of lightheadedness. Unclear if symptoms are related to transient orthostatic hypotension upon standing with severe intracranial stenosis of POST FORM REMOVER's leading to hypoperfusion of brain tissue. PLAN: Recommend MRI cervical spine to rule out cervical myelopathy. Continue aspirin 81 mg daily and Plavix 75 mg daily. Continue statin therapy. Continue physical therapy (PT), occupational therapy (OT). Continue telemetry monitoring. At this point, start to normalize blood pressure. MTDD
[2019-04-21] MEDS: SENOKOT S TAB PO SCH (09:00)
[2019-04-21] MEDS: CLOPIDOGREL 75 MG TAB PO SCH (09:22)
[2019-04-21] MEDS: ASPIRIN 81 MG CHEW TABLET PO SCH (09:22)
[2019-04-21 09:23] VITALS: BP 149/88
[2019-04-21] MEDS: METOPROLOL SUCC (TopROL XL) 50MG **XL** TAB PO SCH (09:23)
[2019-04-21] MEDS: ALLOPURINOL 100 MG TAB PO SCH (09:23)
[2019-04-21] MEDS: busPIRone 5 MG TAB PO SCH (11:53)
[2019-04-21] MEDS: LEVOTHYROXINE 50MCG TABLET (0.05MG) PO SCH (11:53)
--- NOTE | 2019-04-21 13:36 | DS.PDOC ---
Discharge Summary General Date of Admission Apr 19, 2019 at 21:53 Date of Discharge 04/21/2019 Attending Physician: LUIS POLLARD MD Discharge Summary PROCEDURES PERFORMED DURING STAY: None ADMITTING DIAGNOSES: 1. Stroke DISCHARGE DIAGNOSES: 1. Acute superior frontal lacunar infarct 2. Hypertension 3. Hypercholesterolemia 4. CHF 5. CAD 6. GERD 7. IBS 8. MICHAEL on CKD stage IV 9. Hypothyroid 10. Osteoporosis 11. Depression ITEMS TO FOLLOWUP ON OUTPATIENT: 1. CVA - was started on plavix 75 daily in addition to aspirin 81 daily, per neurology recommendations. Had MRI/ MRA and carotid ultrasounds that revealed lacunar infarct and at least moderate stenoses of bilateral ICAs respectively, and needs an outpatient TTE to complete her stroke work up. To follow up with PCP at [facility]. COMPLICATIONS/CHIEF COMPLAINT: Stroke. HISTORY OF PRESENT ILLNESS: 88-year-old woman resident of [facility], with a history of prior CVA, CHF, four-vessel CABG, hypertension, pulmonary embolism, IBS, CKD and hypothyroid, who was brought into the emergency department via EMS after sustaining a near syncopal episode. She reported that she was seated quietly in the dining hudson of the correction awaiting lunch when she began to feel tingling down her left arm, fatigue and "feeling as if her head was floating ". She otherwise denied any loss of consciousness, myoclonic movements, bladder/bowel incontinence or any prior similar episodes. HOSPITAL COURSE: In the ED, she reported that her symptoms had largely resolved and she was alert and oriented to person place and time and did not appear in any acute distress. Vital signs showed mild hypertension at 158/70 and initial work up revealed an MICHAEL overlying patient's baseline CKD, for which she follows with Dr. Duarte and she was started on IV hydration with normal saline. She had a non contrast head CT that was negative for any acute pathology and follow up brain MRI was significant for a 7 mm acute superior frontal lacunar infarct. Brain MRA demonstrated bilateral severe posterior cerebral artery stenosis. She was given 325 aspirin in the emergency department and after consultation with neurology she was started on plavix 75 daily. Her exam was grossly unchanged and she is now being discharged back to [facility] with PCP follow up. While inpatient, she also had an MICHAEL on CKD that was primarily prerenal azotemia that returned to her baseline after hydration. Her GERD was managed by famotidine and her omeprazole will be restarted at discharge as she is discharged. Her Imdur was held for 72 hours of permissive hypertension in the setting of an acute stroke and will restarted as she is discharged and her synthroid was continued per outpatient settings. DISCHARGE MEDICATIONS: Please see below. ALLERGIES: Please see below. PHYSICAL EXAMINATION ON DISCHARGE: VITAL SIGNS: Please see below. GENERAL APPEARANCE: No acute distress, talking in full sentences. Alert and oriented 3. HEENT: Normocephalic, atraumatic, left eye does w/ limited vision. Wears bifocals. EOMI, PERRLA, anicteric, clear posterior oropharynx CARDIOVASCULAR: Regular rate and rhythm, normal S1 and S2, murmur consistent with aortic stenosis appreciated 09/01 LUNGS: Clear to auscultation bilaterally, no wheezing, rales or rhonchi ABDOMEN: Soft, nontender, nondistended, no organomegaly, bowel sounds present throughout EXTREMITIES: No peripheral edema, or clubbing, no calf tenderness bilaterally NEUROLOGICAL: Patient is alert and oriented to person place and time. 5 st rength appropriate and symmetric in all 4 limbs. PSYCHIATRIC: Mood and affect are appropriate. LABORATORY DATA: Please see below. IMAGING: TTE: pending 04/19/2019: CXR: Pleural and parenchymal changes on the right inferiorly are stable compared to prior study of 03/12/2019. 04/19/2019: noncontrast head CT: Extensive vascular calcification, generalized atrophy, small vessel atherosclerotic changes as before. No acute intracranial abnormality. 04/19/2019: MRI brain without contrast: 1. Extensive chronic microvascular disease with multiple old lacunar infarcts. 2. 7 mm acute right superior frontal lacunar infarct 04/19/2019: MRA brain 1. Dominant left vertebral artery. 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 2. Bilateral severe posterior cerebral artery stenoses. 3. No large vessel occlusion. 04/20/2019: Carotid duplex ultrasound Right common carotid artery: There is irregular calcified and noncalcified plaque in the distal right common carotid artery and carotid bulb at least moderate stenosis. No occlusion. Right internal carotid artery: Estimated greater than 70% stenosis in the right ICA. No occlusion. There is spectral broadening in the waveform indicative of turbulent flow. Right ICA/CCA ratio: Within normal limits. Right external carotid artery: No significant stenosis in the origin. Right vertebral artery: Unremarkable. Antegrade flow Left common carotid artery: There is fairly smooth noncalcified plaque in the left common carotid artery and carotid bulb. No occlusion. Left internal carotid artery: Estimated 50-69% stenosis in the left ICA. Left ICA/CCA ratio: Within normal limits. Left external carotid artery: Suspected severe stenosis of the origin of the left ECA. Left vertebral artery: Unremarkable. Antegrade flow. IMPRESSION: 1. Severe right ICA stenosis. 2. Moderate left ICA stenosis. 3. Suspected severe stenosis of the origin of the left ECA. 4. Plaque in the bilateral common carotid arteries and carotid bulbs. PROGNOSIS: Fair ACTIVITY: As tolerated DIET: Cardiac DISCHARGE PLAN: [facility] Keep Home with PT and PCP follow up DISPOSITION: [facility] Keep Home DISCHARGE INSTRUCTIONS: 1. PCP follow up within 10 days. DISCHARGE CONDITION: Good TIME SPENT ON DISCHARGE: Greater than 30 minutes. Vital Signs/I&Os Vital Signs Date Time Temp Pulse Resp B/P (MAP) Pulse Ox O2 Delivery O2 Flow Rate FiO2 04/20/19 09:08 77 135/95 04/20/19 06:00 97.8 18 95 04/19/19 21:00 Room Air I&O- Last 24 Hours up to 6 AM 04/20/19 05:59 Intake Total 0 ml Output Total 400 ml Balance -400 ml Laboratory Data Labs 24H Laboratory Tests 2 04/19/19 14:41: Immature Granulocyte % (Auto) 0.3, White Blood Count 9.5, Red Blood Count 3.33L, Hemoglobin 10.8L, Hematocrit 33.0L, Mean Corpuscular Volume 99.1H, Mean Corpuscular Hemoglobin 32.4, Mean Corpuscular Hemoglobin Concent 32.7, Red Cell Distribution Width 14.5, Platelet Count 309, Neutrophils (%) (Auto) 68.4H, Lymphocytes (%) (Auto) 18.4L, Monocytes (%) (Auto) 10.1H, Eosinophils (%) (Auto) 2.1, Basophils (%) (Auto) 0.7, Neutrophils # (Auto) 6.5, Lymphocytes # (Auto) 1.7, Monocytes # (Auto) 1.0H, Eosinophils # (Auto) 0.2, Basophils # (Auto) 0.1, Nucleated Red Blood Cells % (auto) 0.0, Anion Gap 13, Glomerular Filtration Rate 15.2L, Blood Urea Nitrogen 38H, Creatinine 3.09H, Sodium Level 144, Potassium Level 5.4H, Chloride Level 111H, Carbon Dioxide Level 20L, Calcium Level 8.8, Aspartate Amino Transf (AST/SGOT) 15, Alanine Aminotransferase (ALT/SGPT) 14, Total Creatine Kinase 45, Alkaline Phosphatase 73, Total Bilirubin 0.3, Direct Bilirubin 0.1, Total Protein 6.2L, Albumin 3.4, Creatine Kinase MB 1.0, Creatine Kinase MB Relative Index 2.22, Troponin I 0.03, Albumin/Globulin Ratio 1.21, Lipase 195 04/19/19 17:54: Urine Color YELLOW, Urine Appearance HAZY, Urine pH 6.0, Urine Specific [place] 1.010, Urine Protein NEGATIVE, Urine Glucose (UA) NEGATIVE, Urine Ketones NEGATIVE, Urine Blood NEGATIVE, Urine Nitrite NEGATIVE, Urine Bilirubin NEGATIVE, Urine Urobilinogen 0.2, Urine Leukocyte Esterase TRACEH, Urine WBC (Auto) 3, Urine RBC (Auto) 1, Urine Hyaline Casts (Auto) 0, Urine Bacteria (Auto) NEGATIVE, Urine Squamous Epithelial Cells 5, Urine Sperm (Auto) 04/20/19 09:03: Nucleated Red Blood Cells % (auto) 0.0, Anion Gap 8, Glomerular Filtration Rate 18.7L, Blood Urea Nitrogen 33H, Creatinine 2.58H, Sodium Level 147H, Potassium Level 5.1, Chloride Level 118H, Carbon Dioxide Level 21, Calcium Level 8.7L CBC/BMP Laboratory Tests 04/19/19 14:41 Red Blood Count 3.33 L, Mean Corpuscular Volume 99.1 H, Mean Corpuscular Hemoglobin 32.4, Mean Corpuscular Hemoglobin Concent 32.7, Red Cell Distribution Width 14.5, Neutrophils (%) (Auto) 68.4 H, Lymphocytes (%) (Auto) 18.4 L, Monocytes (%) (Auto) 10.1 H, Eosinophils (%) (Auto) 2.1, Basophils (%) (Auto) 0.7, Neutrophils # (Auto) 6.5, Lymphocytes # (Auto) 1.7, Monocytes # (Auto) 1.0 H, Eosinophils # (Auto) 0.2, Basophils # (Auto) 0.1, Calcium Level 8.8, Aspartate Amino Transf (AST/SGOT) 15, Alanine Aminotransferase (ALT/SGPT) 14, Total Creatine Kinase 45, Alkaline Phosphatase 73, Total Bilirubin 0.3, Direct Bilirubin 0.1, Total Protein 6.2 L, Albumin 3.4 04/20/19 09:03 Red Blood Count 3.62 L, Mean Corpuscular Volume 98.9 H, Mean Corpuscular Hemoglobin 32.3, Mean Corpuscular Hemoglobin Concent 32.7, Red Cell Distribution Width 14.2, Calcium Level 8.7 L Microbiology Microbiology 04/19/19 Urine Culture, Received Pending Discharge Medications Scheduled Allopurinol (Allopurinol) 100 Mg Tablet, 100 MG PO DAILY, (Reported) Aspirin (Aspirin) 325 Mg Tablet, 325 MG PO DAILY, (Reported) Buspirone HCl (Buspirone HCl) 5 Mg Tablet, 5 MG PO DAILY, (Reported) TAKES AT NOON Clopidogrel Bisulfate (Clopidogrel) 75 Mg Tablet, 75 MG PO DAILY Esomeprazole Magnesium (Esomeprazole Magnesium Dr) 40 Mg Capsule.dr, 40 MG PO DAILY, (Reported) Famotidine (Famotidine) 20 Mg Tablet, 20 MG PO QHS, (Reported) Isosorbide Mononitrate (Isosorbide Mononitrate ER) 30 Mg Tab.er.24h, 30 MG PO DAILY, (Reported) Levothyroxine Sodium (Levothyroxine Sodium) 50 Mcg Tablet, 50 MCG PO DAILY, (Reported) @ 1100 Metoprolol Succinate (Metoprolol Succinate) 50 Mg Tab.er.24h, 50 MG PO DAILY, (Reported) Mirtazapine (Remeron) 15 Mg Tablet, 15 MG PO QHS, (Reported) Multivitamin with Minerals (Multivitamins with Minerals) 1 Each Tablet, 1 TAB PO DAILY, (Reported) Paricalcitol (Paricalcitol) 1 Mcg Capsule, 1 MCG PO 3XW, (Reported) MON, WED, FRI Quetiapine Fumarate (Quetiapine Fumarate) 50 Mg Tablet, 50 MG PO DAILY, (Reported) @ 1200 Ramelteon (Rozerem) 8 Mg Tablet, 8 MG PO QHS, (Reported) Sennosides/Docusate Sodium (Senna-S Tablet) 1 Each Tablet, 2 TAB PO BID, (Reported) Sucralfate (Sucralfate) 1 Gm Tablet, 1 GM PO DAILY, (Reported) Scheduled PRN Acetaminophen (Acetaminophen) 650 Mg Supp.rect, 650 MG OH Q4H PRN for PAIN / FE LI, (Reported) Acetaminophen (Acetaminophen) 325 Mg Tablet, 650 MG PO Q4H PRN for PAIN, (Reported) Bisacodyl (Dulcolax) 10 Mg Supp.rect, 10 MG OH DAILY PRN for CONSTIPATION, (Reported) Docusate Sodium (Stool Softener) 100 Mg Capsule, 100 MG PO DAILY PRN for CONSTIPATION, (Reported) Magnesium Hydroxide (Milk of Magnesia) 400 Mg/5 Ml Oral.susp, 2,400 MG PO DAILY PRN for CONSTIPATION, (Reported) Sodium Phosphate,Lamar-Dibasic (Enema) 133 Ml Enema, 1 VADIM [place] DAILY PRN for CONSTIPATION, (Reported) Allergies Coded Allergies: Nut Tree (Verified Allergy, Unknown, HIVES, 03/12/19) Penicillins (Verified Allergy, Unknown, 03/12/19) and penicillin cross reactors Sulfa (Sulfonamide Antibiotics) (Verified Allergy, Unknown, 03/12/19) and sulfa cross reactors azithromycin (Verified Allergy, Unknown, 03/12/19) calcitriol (Verified Allergy, Unknown, 03/12/19) doxycycline (Verified Allergy, Unknown, 03/12/19) wheat (Verified Allergy, Unknown, 03/12/19) LUIS POLLARD MD Apr 20, 2019 12:05
== END 2019-04-21 14:12 | DRG 65 ==
LOC: EDBD 14:01 → M ED 14:01 → M ED INP 21:53 → M MSPAV 23:26
PROVIDERS: ADMIT Internal Medicine; ATTEND Internal Medicine
DX: I63.59 Cerebral infarction due to unspecified occlusion or stenosis of other cerebral artery (principal); I13.0 Hypertensive heart and chronic kidney disease with heart failure and stage 1 through stage 4 chronic kidney disease, or unspecified chronic kidney disease; N18.4 Chronic kidney disease, stage 4 (severe); N17.9 Acute kidney failure, unspecified; I50.9 Heart failure, unspecified; Z86.711 Personal history of pulmonary embolism; K58.9 Irritable bowel syndrome, unspecified; I67.2 Cerebral atherosclerosis; E03.9 Hypothyroidism, unspecified; E78.00 Pure hypercholesterolemia, unspecified; K21.9 Gastro-esophageal reflux disease without esophagitis; M81.0 Age-related osteoporosis without current pathological fracture; F32.9 Major depressive disorder, single episode, unspecified; K64.4 Residual hemorrhoidal skin tags; I65.23 Occlusion and stenosis of bilateral carotid arteries; Z85.828 Personal history of other malignant neoplasm of skin; Z96.641 Presence of right artificial hip joint; Z87.81 Personal history of (healed) traumatic fracture; I25.2 Old myocardial infarction; Z79.82 Long term (current) use of aspirin; Z79.899 Other long term (current) drug therapy; Z88.0 Allergy status to penicillin; Z88.2 Allergy status to sulfonamides; Z88.1 Allergy status to other antibiotic agents; Z88.8 Allergy status to other drugs, medicaments and biological substances; Z91.018 Allergy to other foods

== ENCOUNTER → 2019-04-23 | Outpatient (REF) ==
[~2019-04-23] MED LIST changes: +ACET650S3 PR; +CLOP75TA2 PO; +DULC10SU2 PR; +ENEMENE PR; +MILKSUS3 PO; +MULTTAB62 PO; +ROZE8TAB16 PO; +SENN-23 PO
[2019-04-23 16:07] LABS: HEMATOCRIT 35.4 % (36.0-47.0); MEAN CORPUSCULAR HEMOGLOBIN 33.1 pg (27.0-33.0); MEAN CORPUSCULAR HGB CONC 31.1 g/dl (32.0-36.5); MEAN CORPUSCULAR VOLUME 106.6 fl (80.0-96.0); PLATELET COUNT, AUTOMATED 267 10^3/uL (150-450); RED BLOOD COUNT 3.32 10^6/uL (4.00-5.40)
[2019-04-23 16:35] LABS: CALCIUM LEVEL 8.5 MG/DL (8.8-10.2); CREATININE FOR GFR 3.05 MG/DL (0.55-1.30); GLOMERULAR FILTRATION RATE 15.4 (>32); POTASSIUM SERUM 4.1 MEQ/L (3.5-5.1); TROPONIN I 0.04 NG/ML (< 0.10)
== END ==
LOC: SKLAB7 12:43
PROVIDERS: ATTEND Family Medicine
DX: R07.89 Other chest pain (principal)

== ENCOUNTER 2019-05-16 10:41 | Inpatient (IN) | payer MEDICARE, MEDICAID ==
[~2019-05-16] VITALS: Ht 157.5 cm; Wt 50.1 kg
[2019-05-16] MEDS ORDERED: PANT20TA2 PO (11:01)
[2019-05-16] MEDS ORDERED: TOPR25TA PO (11:01)
[2019-05-16] MEDS ORDERED: NITR4TASL SL (11:01)
[2019-05-16] MEDS ORDERED: CLOP75TA2 PO (11:01)
[2019-05-16] MEDS ORDERED: LORazepam 2 MG/ML VIAL (J2060) IM STA (11:21)
[2019-05-16 12:21] LABS: BASO # 0.1 10^3/uL (0.0-0.2); BASO % 0.6 % (0.0-1.0); EOS # 2.6 10^3/uL (0.0-0.5); EOS % 17.1 % (0.0-3.0); LYMPH % 13.3 % (24.0-44.0); MEAN CORPUSCULAR HEMOGLOBIN 33.5 pg (27.0-33.0); MEAN CORPUSCULAR HGB CONC 32.4 g/dl (32.0-36.5); MEAN CORPUSCULAR VOLUME 103.7 fl (80.0-96.0); MONO # 1.4 10^3/uL (0.0-0.8); MONO % 9.1 % (0.0-5.0); NEUTROPHILS # 8.8 10^3/uL (1.5-8.5); NEUTROPHILS % 59.2 % (36.0-66.0); PLATELET COUNT, AUTOMATED 276 10^3/uL (150-450); RED BLOOD COUNT 3.28 10^6/uL (4.00-5.40); WHITE BLOOD COUNT 14.9 10^3/uL (4.0-10.0)
[2019-05-16] MEDS: QUEtiapine FUMARATE 50 MG TAB PO ONE (12:25)
--- NOTE | 2019-05-16 12:32 | REP ---
Chest x-ray: Portable exam single view. History: Altered mental status. Comparison study: April 19, 2019. Findings: Mild cardiomegaly is observed. Median sternotomy wires are seen. There is slight blunting of the right lateral pleural angle although this is improved from April 19, 2019. No acute infiltrate is seen. Pulmonary vasculature is not increased. Impression: Cardiomegaly post sternotomy. Slight blunting of the right lateral pleural angle. Otherwise no acute disease. Electronically Signed by Jeffery Armenta MD 05/16/2019 12:24 P
[2019-05-16 12:48] LABS: ALBUMIN 3.5 GM/DL (3.2-5.2); ALT/SGPT 15 U/L (12-78); BILIRUBIN,DIRECT < 0.1 MG/DL (0.0-0.2); BILIRUBIN,TOTAL 0.5 MG/DL (0.2-1.0); BLOOD UREA NITROGEN 55 MG/DL (7-18); CALCIUM LEVEL 8.9 MG/DL (8.8-10.2); CARBON DIOXIDE LEVEL 17 MEQ/L (21-32); CHLORIDE LEVEL 116 MEQ/L (98-107); CK-MB VALUE MASS 1.4 NG/ML (<3.6); CPK CREATINE PHOSPHOKINASE 60 U/L (26-192); CREATININE FOR GFR 3.83 MG/DL (0.55-1.30); GLOMERULAR FILTRATION RATE 11.8 (>32); GLUCOSE, FASTING 115 MG/DL (70-100); MB/CK RELATIVE INDEX 2.33 (< OR =4); POTASSIUM SERUM 5.3 MEQ/L (3.5-5.1); SODIUM LEVEL 144 MEQ/L (136-145); TOTAL PROTEIN 5.9 GM/DL (6.4-8.2); TROPONIN I 0.03 NG/ML (< 0.10)
[2019-05-16] MEDS ORDERED: cefTRIAXone SOD 1 GM in D5W MINI-BAG PLUS 50 ML IV ONE (13:00)
[2019-05-16] MEDS: NS 1,000 ML IV SCH ×2 (13:16→20:54)
[2019-05-16] MEDS ORDERED: ACETAMINOPHEN TAB 650MG DOSE (2X325MG) PO PRN (13:30)
--- NOTE | 2019-05-16 13:37 | REP ---
CT brain without contrast: History: Altered mental status. Comparison head CT study April 19, 2019. CT findings: Digital preliminary planer setter radiograph is unremarkable. Bony calvarium is intact. There is heavy vascular calcification in the distal carotid and distal vertebral arteries. The visualized paranasal sinuses are clear. No intraorbital abnormality is appreciated. There is moderate generalized volume loss again noted. There are periventricular white matter changes consistent with microvascular ischemic change. There are lacunar infarcts in the basal ganglia bilaterally which are unchanged. There is no evidence of acute infarction. No hemorrhage is seen. No mass or midline shift is observed. Impression: Vascular calcification, diffuse atrophy and small vessel atherosclerotic changes. Bilateral basal ganglia lacunar infarcts. No acute infarction or hemorrhage seen. Electronically Signed by Jeffery Armenta MD 05/16/2019 02:25 P
--- NOTE | 2019-05-16 13:49 | HPEPDOC ---
[facility] Medical History & Physical Date of Admission May 16, 2019 Date of Service: May 16, 2019 History and Physical CHIEF COMPLAINT: Agitation HISTORY OF PRESENT ILLNESS: Patient is 88F with PMH dementia, CVA, CHF, CAD s/p CABG, HTN, hx PE, IBS, CKD was sent from [facility] for reported agitation and workup for sepsis. Patient reported was hypotensive there. In ER, patient does appear to have intermittent periods of agitation but is afebrile and hemodynamically stable. She is noted to have leukocytosis and LA 2.6 however. UA suggestive of UTI. Patient is alert and communicative but only oriented to self. Denies any complaints including any pain or discomfort. Unable to obtain further history, most data obtained from previous admission documentations. PAST MEDICAL HISTORY: Refer to [facility] PAST SURGICAL HISTORY: CABG Total right hip replacement HTN hx PE IBS CKD SOCIAL HISTORY: Denies tobacco, alcohol or illicit drug use. FAMILY HISTORY: Parents hx CAD ALLERGIES: Please see below. REVIEW OF SYSTEMS: 10 point review of system negative except as stated in HPI HOME MEDICATIONS: Please see below. PHYSICAL EXAMINATION: General: No acute distress, Alert, elderly with confusion but calm Eyes: Normal sclera, EOMI, DARIA HENT: Atraumatic Cardiovascular: Normal rate, normal rhythm. Pulmonary: Clear to auscultation b/l, no wheezing GI: Soft, nontender, nondistended Skin: Warm and dry Neuro: CN grossly intact. No focal deficits. Psych: oriented x 1 LABORATORY DATA: See below. IMAGING: CT Head- Impression: Vascular calcification, diffuse atrophy and small vessel atherosclerotic changes. Bilateral basal ganglia lacunar infarcts. No acute infarction or hemorrhage seen. CXR- Impression: Cardiomegaly post sternotomy. Slight blunting of the right lateral pleural angle. Otherwise no acute disease. MICROBIOLOGY: Please see below. ASSESSMENT AND PLAN: 1. AMS - In setting of UTI and baseline dementia. - c/w treatment for UTI. CT head shows diffuse atrophy and b/l ganglia lacunar infarcts but no acute infarction or hemorrhage. - Will benefit from 1:1 at this time if possible. 2. UTI - c/w Rocephin. HD stable. - f/u Urine and blood cultures. 3. CAD - s/p CABG. c/w home medications. 4. Chronic combine systolic and diastolic HF - resume home meds. slight blunting of R. pleural angle but otherwise no other apparent evidence of fluid overload. - c/w home medications. 5. hx CVA - resume home meds 6. HTN - Monitor BP. Hold home dose metoprolol at this time as patient was reportedly hypotensive. - Consider resuming in the next day or two if patient remains HD stable. 7. hx IBS 8. CKD 9. hx PE Code status: DNR/DNI Dispo: Mellisa keep once once medically cleared Vital Signs Vital Signs Date Time Temp Pulse Resp B/P (MAP) Pulse Ox O2 Delivery O2 Flow Rate FiO2 05/16/19 13:02 96.6 05/16/19 11:56 88 96 05/16/19 11:45 20 102/51 (68) Room Air Laboratory Data Labs 24H Laboratory Tests 2 05/16/19 10:59: Immature Granulocyte % (Auto) 0.7, Neutrophils (%) (Auto) 59.2, Lymphocytes (%) (Auto) 13.3L, Monocytes (%) (Auto) 9.1H, Eosinophils (%) (Auto) 17.1H, Basophils (%) (Auto) 0.6, Neutrophils # (Auto) 8.8H, Lymphocytes # (Auto) 2.0, Monocytes # (Auto) 1.4H, Eosinophils # (Auto) 2.6H, Basophils # (Auto) 0.1, Nucleated Red Blood Cells % (auto) 0.0 05/16/19 11:44: Urine Color YELLOW, Urine Appearance CLOUDYH, Urine pH 5.0, Urine Specific [place] 1.016, Urine Protein 1+H, Urine Glucose (UA) NEGATIVE, Urine Ketones TRACEH, Urine Blood 1+H, Urine Nitrite POSITIVEH, Urine Bilirubin NEGATIVE, Urine Urobilinogen 0.2, Urine Leukocyte Esterase 3+H, Urine WBC (Auto) 90H, Urine RBC (Auto) 8H, Urine Hyaline Casts (Auto) 4, Urine Bacteria (Auto) 2+H, Urine Squamous Epithelial Cells 1, Urine Transitional Epithelial Cells 1, Urine Mucus (Auto) SMALL, Urine Sperm (Auto) , Anion Gap 11, Glomerular Filtration Rate 11.8L, Lactic Acid Level 2.6*H, Calcium Level 8.9, Total Bilirubin 0.5, Direct Bilirubin < 0.1, Aspartate Amino Transf (AST/SGOT) 17, Alanine Amino transferase (ALT/SGPT) 15, Alkaline Phosphatase 70, Ammonia < 10, Total Creatine Kinase 60, Creatine Kinase MB 1.4, Creatine Kinase MB Relative Index 2.33, Troponin I 0.03, Total Protein 5.9L, Albumin 3.5, Albumin/Globulin Ratio 1.46, Thyroid Stimulating Hormone (TSH) 4.090H CBC/BMP Laboratory Tests 05/16/19 10:59 05/16/19 11:44 Microbiology Microbiology 05/16/19 Blood Culture, Received Pending 05/16/19 Urine Culture, Received Pending 05/16/19 Blood Culture, Received Pending Home Medications Scheduled Allopurinol (Allopurinol) 100 Mg Tablet, 100 MG PO DAILY Aspirin (Aspirin) 325 Mg Tablet, 325 MG PO DAILY Buspirone HCl (Buspirone HCl) 5 Mg Tablet, 5 MG PO DAILY Clopidogrel Bisulfate (Clopidogrel) 75 Mg Tablet, 75 MG PO DAILY Famotidine (Famotidine) 20 Mg Tablet, 20 MG PO QHS Isosorbide Mononitrate (Isosorbide Mononitrate ER) 30 Mg Tab.er.24h, 30 MG PO DAILY Levothyroxine Sodium (Levothyroxine Sodium) 50 Mcg Tablet, 50 MCG PO DAILY @ 1100 Metoprolol Succinate (Toprol Xl) 25 Mg Tab.er.24h, 25 MG PO QPM Mirtazapine (Remeron) 15 Mg Tablet, 15 MG PO QHS Pantoprazole Sodium (Pantoprazole Sodium) 20 Mg Tablet.dr, 20 MG PO DAILY Paricalcitol (Paricalcitol) 1 Mcg Capsule, 1 MCG PO 3XW MON, WED, FRI Quetiapine Fumarate (Quetiapine Fumarate) 50 Mg Tablet, 50 MG PO DAILY @ 1200 Sucralfate (Sucralfate) 1 Gm Tablet, 1 GM PO DAILY Scheduled PRN Acetaminophen (Acetaminophen) 325 Mg Tablet, 650 MG PO Q4H PRN for PAIN Bisacodyl (Dulcolax) 10 Mg Supp.rect, [address] DAILY PRN for CONSTIPATION Magnesium Hydroxide (Milk of Magnesia) 400 Mg/5 Ml Oral.susp, 2,400 MG PO DAILY PRN for CONSTIPATION Nitroglycerin (Nitrostat) 0.4 Mg Tab.subl, 0.4 MG SL Q5MP PRN for CHEST PAIN Sodium Phosphate,Logan-Dibasic (Enema) 133 Ml Enema, [address] DAILY PRN for CONSTIPATION Allergies Coded Allergies: Nut Tree (Verified Allergy, Unknown, HIVES, 03/12/19) Penicillins (Verified Allergy, Unknown, 05/16/19) and penicillin cross reactors Sulfa (Sulfonamide Antibiotics) (Verified Allergy, Unknown, 05/16/19) and sulfa cross reactors azithromycin (Verified Allergy, Unknown, 05/16/19) calcitriol (Verified Allergy, Unknown, 05/16/19) doxycycline (Verified Allergy, Unknown, 05/16/19) wheat (Verified Allergy, Unknown, 03/12/19) A-FIB/CHADSVASC A-FIB History Current/History of A-Fib/PAF?: No MARS RAINEY MD May 16, 2019 13:49
[2019-05-16] MEDS ORDERED: MOM 30ML SUSPENSION UDC PO PRN (14:00)
[2019-05-16] MEDS ORDERED: NITROGLYCERIN 0.4 MG SUBL TABLET SL PRN (14:00)
[2019-05-16] MEDS ORDERED: BISACODYL 10 MG SUPP PR PRN (14:00)
[2019-05-16 14:45] VITALS: BP 128/66
[2019-05-16] MEDS: QUEtiapine FUMARATE 50 MG TAB PO SCH (15:18)
[2019-05-16 16:00] VITALS: BP 145/65
[2019-05-16] MEDS: LORazepam 2 MG/ML VIAL (J2060) IV PRN ×2 (16:06→20:54)
[2019-05-16] MEDS ORDERED: METOPROLOL SUCC *XL* 25MG TAB (TopROL *XL*) PO SCH (18:00)
--- NOTE | 2019-05-16 19:08 | ECGEPIP ---
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
[2019-05-16 20:00] VITALS: BP 128/64
[2019-05-16] MEDS: FAMOTIDINE 20 MG TAB PO SCH (20:54)
[2019-05-16] MEDS: MIRTAZAPINE 15 MG TAB PO SCH (20:54)
[2019-05-17] MEDS: LORazepam 2 MG/ML VIAL (J2060) IV PRN ×3 (02:46→18:25)
[2019-05-17] MEDS: NS 1,000 ML IV SCH ×3 (03:41→12:07)
[2019-05-17] MEDS: LEVOTHYROXINE 50MCG TABLET (0.05MG) PO SCH (05:21)
[2019-05-17] MEDS ORDERED: ONDANSETRON 4MG/2ML VIAL (J2405) IV ONE (05:30)
[2019-05-17 07:11] LABS: HEMATOCRIT 37.2 % (36.0-47.0); MEAN CORPUSCULAR HGB CONC 32.3 g/dl (32.0-36.5); MEAN CORPUSCULAR VOLUME 105.4 fl (80.0-96.0); PLATELET COUNT, AUTOMATED 290 10^3/uL (150-450); RED BLOOD COUNT 3.53 10^6/uL (4.00-5.40); WHITE BLOOD COUNT 16.9 10^3/uL (4.0-10.0)
[2019-05-17 07:44] LABS: CALCIUM LEVEL 8.5 MG/DL (8.8-10.2); CREATININE FOR GFR 2.7 MG/DL (0.55-1.30); GLOMERULAR FILTRATION RATE 17.7 (>32); POTASSIUM SERUM 4.8 MEQ/L (3.5-5.1)
[2019-05-17] MEDS ORDERED: SUCRALFATE 1 GM TAB PO SCH (09:00)
[2019-05-17] MEDS: PANTOPRAZOLE 20 MG TAB PO SCH ×2 (09:00→09:49)
[2019-05-17] MEDS: ASPIRIN 325 MG TAB PO SCH (09:49)
[2019-05-17] MEDS: busPIRone 5 MG TAB PO SCH (09:49)
[2019-05-17] MEDS: ALLOPURINOL 100 MG TAB PO SCH (09:50)
[2019-05-17] MEDS: ISOSORBIDE MON. (IMDUR) 30 MG XR TAB PO SCH (09:50)
[2019-05-17] MEDS: CLOPIDOGREL 75 MG TAB PO SCH (09:50)
[2019-05-17] MEDS: cefTRIAXone SOD 1 GM in D5W MINI-BAG PLUS 50 ML IV SCH (13:44)
[2019-05-17] MEDS: QUEtiapine FUMARATE 50 MG TAB PO SCH (13:44)
--- NOTE | 2019-05-17 19:47 | IPNPDOC ---
Date Seen The patient was seen on 05/17/19. Progress Note SUBJECTIVE: Patient reported was calmed for a period of time but has episodes of agitation throughout the day. Difficulty getting patient to take all of her PO medications. When evaluated she was calmed and reports no complaints but does not talk much. OBJECTIVE PHYSICAL EXAMINATION: General: No acute distress, Alert, elderly with confusion but calm Eyes: Normal sclera, EOMI, DARIA HENT: Atraumatic Cardiovascular: Normal rate, normal rhythm. Pulmonary: Clear to auscultation b/l, no wheezing GI: Soft, nontender, nondistended Skin: Warm and dry Neuro: CN grossly intact. No focal deficits. Psych: oriented x 1 LABORATORY DATA, IMAGING STUDIES, MICROBIOLOGY: Please see below. ASSESSMENT AND PLAN: 1. AMS - In setting of UTI and baseline dementia. - c/w treatment for UTI. CT head shows diffuse atrophy and b/l ganglia lacunar infarcts but no acute infarction or hemorrhage. - c/w antibiotics. May need psych assistance with agitation management. - No nuchal rigidity, neck stiffness, focal neurological deficits otherwise. 2. UTI - c/w Rocephin. HD stable. - f/u Urine and blood cultures. 3. CAD - s/p CABG. c/w home medications. 4. Chronic combine systolic and diastolic HF - resume home meds. slight blunting of R. pleural angle but otherwise no other apparent evidence of fluid overload. - c/w home medications. 5. hx CVA - resume home meds 6. HTN - Monitor BP. Hold home dose metoprolol at this time as patient was reportedly hypotensive. - Consider resuming in the next day or two if patient remains HD stable. 7. hx IBS 8. CKD 9. hx PE Code status: DNR/DNI Dispo: Mellisa keep once once medically cleared VS, I&O, 24H, Fishbone Vital Signs/I&O Vital Signs Date Time Temp Pulse Resp B/P (MAP) Pulse Ox O2 Delivery O2 Flow Rate FiO2 05/17/19 09:50 158/79 05/16/19 20:00 96.9 80 18 97 Room Air I&O- Last 24 Hours up to 6 AM 05/17/19 06:00 Intake Total 1200 ml Output Total 50 ml Balance 1150 ml Laboratory Data 24H LABS Laboratory Tests 2 05/17/19 07:01: Nucleated Red Blood Cells % (auto) 0.0, Anion Gap 11, Glomerular Filtration Rate 17.7L, Calcium Level 8.5L CBC/BMP Laboratory Tests 05/17/19 07:01 Microbiology Microbiology 05/16/19 Blood Culture - Preliminary, Resulted No growth after 24 hours . All specim... 05/16/19 Urine Culture, Received Pending 05/16/19 Blood Culture - Preliminary, Resulted No growth after 24 hours . All specim... MARS RAINEY MD May 17, 2019 19:47
[2019-05-17] MEDS: MIRTAZAPINE 15 MG TAB PO SCH (19:51)
[2019-05-17] MEDS: FAMOTIDINE 20 MG TAB PO SCH (21:00)
[2019-05-17] MEDS ORDERED: QUEtiapine FUMARATE 50 MG TAB PO ONE (23:30)
[2019-05-18] MEDS: LEVOTHYROXINE 50MCG TABLET (0.05MG) PO SCH (06:00)
[2019-05-18] MEDS: busPIRone 5 MG TAB PO SCH ×2 (09:00→09:44)
[2019-05-18] MEDS: ISOSORBIDE MON. (IMDUR) 30 MG XR TAB PO SCH ×2 (09:00→09:47)
[2019-05-18] MEDS: ASPIRIN 325 MG TAB PO SCH ×2 (09:00→09:44)
[2019-05-18] MEDS: PANTOPRAZOLE 20 MG TAB PO SCH ×2 (09:00→09:47)
[2019-05-18] MEDS: CLOPIDOGREL 75 MG TAB PO SCH ×2 (09:00→09:44)
[2019-05-18] MEDS: ALLOPURINOL 100 MG TAB PO SCH ×2 (09:00→09:44)
[2019-05-18] MEDS: SUCRALFATE SUSP 1GM/10ML UD PO SCH ×2 (09:00→09:44)
[2019-05-18 09:30] VITALS: BP 145/75
[2019-05-18 09:54] LABS: HEMATOCRIT 34.2 % (36.0-47.0); HEMOGLOBIN 10.9 g/dl (12.0-15.5); MEAN CORPUSCULAR HEMOGLOBIN 33.5 pg (27.0-33.0); MEAN CORPUSCULAR HGB CONC 31.9 g/dl (32.0-36.5); MEAN CORPUSCULAR VOLUME 105.2 fl (80.0-96.0); PLATELET COUNT, AUTOMATED 270 10^3/uL (150-450); RED BLOOD COUNT 3.25 10^6/uL (4.00-5.40); WHITE BLOOD COUNT 15.8 10^3/uL (4.0-10.0)
[2019-05-18 10:10] LABS: CALCIUM LEVEL 8.7 MG/DL (8.8-10.2); CREATININE FOR GFR 2.24 MG/DL (0.55-1.30); POTASSIUM SERUM 5.3 MEQ/L (3.5-5.1)
[2019-05-18] MEDS ORDERED: NS 1,000 ML IV SCH (11:00)
[2019-05-18] MEDS ORDERED: NS 250 ML IV ONE (11:00)
[2019-05-18] MEDS: QUEtiapine FUMARATE 50 MG TAB PO SCH (12:00)
[2019-05-18] MEDS: cefTRIAXone SOD 1 GM in D5W MINI-BAG PLUS 50 ML IV SCH (14:29)
[2019-05-18 17:20] VITALS: BP 153/83
[2019-05-18 18:00] VITALS: BP 151/88
[2019-05-18] MEDS ORDERED: NS 0.45% 500 ML IV SCH (18:00)
--- NOTE | 2019-05-18 19:23 | IPNPDOC ---
Date Seen The patient was seen on 05/18/19. Progress Note SUBJECTIVE: Patient reported was up most of the night talking, still with intermittent p eriods of agitation. HR noted to be high at times, likely taken when patient is thrashing when vitals are taken. Afebrile overnight, WBC 16.9->15.8. Na has been trending up to 149 today. OBJECTIVE PHYSICAL EXAMINATION: General: No acute distress, responsive, confused with some agitation interm ittently Eyes: Normal sclera, EOMI, DARIA HENT: Atraumatic Cardiovascular: Normal rate, normal rhythm. Pulmonary: Clear to auscultation b/l, no wheezing GI: Soft, nontender, nondistended Skin: Warm and dry Neuro: confused Psych: confused LABORATORY DATA, IMAGING STUDIES, MICROBIOLOGY: Please see below. ASSESSMENT AND PLAN: 1. AMS - In setting of UTI and baseline dementia. Reportedly per HCP and nursing staff patient was also confused with last admission for UTI for several days. Appear worse this time. - Also dementia has noted to be progressively gotten worse over the past year. - c/w treatment for UTI. CT head shows diffuse atrophy and b/l ganglia lacunar infarcts but no acute infarction or hemorrhage. - c/w antibiotics. May need psych assistance with agitation management. - No nuchal rigidity, neck stiffness, focal neurological deficits otherwise. 2. UTI - c/w Rocephin. HD stable. - Urine culture + E. coli. - Blood cultures NTD. 3. CAD - s/p CABG. c/w home medications. 4. Chronic combine systolic and diastolic HF - resume home meds. slight blunting of R. pleural angle but otherwise no other apparent evidence of fluid overload. - c/w home medications. 5. hx CVA - resume home meds 6. HTN - Monitor BP. Hold home dose metoprolol at this time as patient was reportedly hypotensive. - Consider resuming in the next day or two if patient remains HD stable. 7. hx IBS 8. CKD 9. hx PE 10. Hypernatremia - likely 2/2 dehydration from decrease oral intake for the past few days patient has been confused. - Received NS saline at slow rate today. Transitioned to 1/2NS for another 500cc at slow rate in setting of CHF. - Repeat BMP to monitor for progression. Avoid rapid correction of Na. Code status: DNR/DNI Dispo: Mellisa keep once once medically cleared VS, I&O, 24H, Fishbone Vital Signs/I&O Vital Signs Date Time Temp Pulse Resp B/P (MAP) Pulse Ox O2 Delivery O2 Flow Rate FiO2 05/18/19 18:00 99.1 55 23 151/88 (109) 94 Room Air I&O- Last 24 Hours up to 6 AM 05/18/19 06:00 Intake Total 0 ml Output Total 200 ml Balance -200 ml Laboratory Data 24H LABS Laboratory Tests 2 05/18/19 09:21: Nucleated Red Blood Cells % (auto) 0.0, Anion Gap 8, Glomerular Filtration Rate 22.0L, Calcium Level 8.7L 05/18/19 18:45: CBC/BMP Laboratory Tests 05/18/19 09:21 Microbiology Microbiology 05/16/19 Blood Culture - Preliminary, Resulted No Growth after 48 hours. All Specime... 05/16/19 Urine Culture - Final, Complete Escherichia Coli 05/16/19 Blood Culture - Preliminary, Resulted No Growth after 48 hours. All Specime... MARS RAINEY MD May 18, 2019 19:23
[2019-05-18 19:26] LABS: CREATININE FOR GFR 2.29 MG/DL (0.55-1.30); GLOMERULAR FILTRATION RATE 21.4 (>32)
[2019-05-18] MEDS: MIRTAZAPINE 15 MG TAB PO SCH (21:00)
[2019-05-18] MEDS: FAMOTIDINE 20 MG TAB PO SCH (21:00)
[2019-05-18] MEDS ORDERED: NACL As Ordered ONE (23:14)
[2019-05-18] MEDS ORDERED: D5 As Ordered ONE (23:14)
[2019-05-18] MEDS: D5W/0.2% SODIUM CHLORIDE 1,000 ML IV SCH (23:22)
[2019-05-19] VITALS (7 sets, daily range): BP systolic 97–135; BP diastolic 56–100
[2019-05-19] MEDS: LEVOTHYROXINE 50MCG TABLET (0.05MG) PO SCH (06:00)
[2019-05-19] MEDS ORDERED: METOPROLOL 5 MG/5 ML VIAL IV STA (06:29)
--- NOTE | 2019-05-19 07:14 | IPNPDOC ---
Text Note Date of Service The patient was seen on 05/19/19. NOTE Transferred to PCU due to Marci inability to give IV meds on 5 live. She will be placed on tele and give 5 mg of metoprolol tartate. PE VITALS: See Below GENERAL APPEARANCE: Alert no acute distres SKIN: Warm, LUNGS: Clear to auscultation bilaterally. HEART: Normal S1, S2. No murmurs, no rubs, no gallops, tachycardic ABDOMEN: Soft. No masses. Bowel sounds are present. TRUNK/SPINE:Straight. EXTREMITIES: Moves all extremities equally. No gross deformities. PULSES: 2+ upper and lower extremity . Assessment and plan, Telemetry, and metoprolol for [place]. Continue her routine care. VS,Fishbone, I+O VS, Fishbone, I+O Laboratory Tests 05/18/19 09:21 05/18/19 18:45 Vital Signs Date Time Temp Pulse Resp B/P (MAP) Pulse Ox O2 Delivery O2 Flow Rate FiO2 05/19/19 07:00 182 05/19/19 06:22 21 120/91 (101) 97 Room Air 05/18/19 22:00 98.9 I&O- Last 24 Hours up to 6 AM 05/19/19 06:00 Intake Total 100 ml Balance 100 ml GME ATTESTATION GME ATTESTATION My faculty preceptor for this patient encounter was physically present during the encounter and was fully available. All aspects of the patient interview, examination, medical decision making process, and medical care plan development were reviewed and approved by the faculty preceptor. The faculty preceptor is aware and concurs with the plan as stated in the body of this note and will attest to such by his/her cosignature. LUZ WAGNER DO May 19, 2019 07:14
[2019-05-19 07:55] LABS: HEMOGLOBIN 11.2 g/dl (12.0-15.5); MEAN CORPUSCULAR VOLUME 106.4 fl (80.0-96.0); PLATELET COUNT, AUTOMATED 299 10^3/uL (150-450); RED BLOOD COUNT 3.29 10^6/uL (4.00-5.40)
[2019-05-19 08:22] LABS: CALCIUM LEVEL 8.9 MG/DL (8.8-10.2); CREATININE FOR GFR 2.29 MG/DL (0.55-1.30); GLOMERULAR FILTRATION RATE 21.4 (>32)
[2019-05-19] MEDS: busPIRone 5 MG TAB PO SCH (09:00)
[2019-05-19] MEDS: ISOSORBIDE MON. (IMDUR) 30 MG XR TAB PO SCH (09:00)
[2019-05-19] MEDS: ALLOPURINOL 100 MG TAB PO SCH (09:00)
[2019-05-19] MEDS: ASPIRIN 325 MG TAB PO SCH (09:00)
[2019-05-19] MEDS: PANTOPRAZOLE 20 MG TAB PO SCH (09:00)
[2019-05-19] MEDS: SUCRALFATE SUSP 1GM/10ML UD PO SCH (09:00)
[2019-05-19] MEDS: CLOPIDOGREL 75 MG TAB PO SCH (09:00)
[2019-05-19] MEDS ORDERED: METOPROLOL 5 MG/5 ML VIAL IV PRN (09:15)
[2019-05-19] MEDS: QUEtiapine FUMARATE 50 MG TAB PO SCH (12:00)
[2019-05-19] MEDS: D5W/0.2% SODIUM CHLORIDE 1,000 ML IV SCH ×2 (13:02→22:44)
[2019-05-19] MEDS: cefTRIAXone SOD 1 GM in D5W MINI-BAG PLUS 50 ML IV SCH (14:35)
--- NOTE | 2019-05-19 17:30 | IPNPDOC ---
Date Seen The patient was seen on 05/19/19. Progress Note SUBJECTIVE: Patient was moved to ICU this morning due to tachycardia. Reportedly went into SVT. WBC trended up to 19 although mental status this morning seemed to be slightly improved and patient communicated some. Initially planned to evaluate cardiac function and perform LP given no improvement in WBC and persistent mental status changes. Health care proxy was at bedside and reports that patient had expressed that she does not want aggressive interventions done when she was lucid. Do not want to undergo LP or have ECHO performed, decision made by family to make patient comfort care and to maintain current level of care only. To not escalate antibiotics. To finish up course of IV Abx for treatment of UTI and IVF for hydration. No more bloodwork will be done. OBJECTIVE PHYSICAL EXAMINATION: General: responsive, confused with some agitation intermittently Eyes: Normal sclera, EOMI, DARIA HENT: Atraumatic Cardiovascular: Tachycardic Pulmonary: Clear to auscultation b/l GI: Soft, nontender, nondistended Skin: Warm and dry Neuro: confused Psych: confused LABORATORY DATA, IMAGING STUDIES, MICROBIOLOGY: Please see below. ASSESSMENT AND PLAN: 1. AMS - In setting of UTI and baseline dementia. Reportedly per HCP and nursing staff patient was also confused with last admission for UTI for several days. Appear worse this time. - Also dementia has noted to be progressively gotten worse over the past year. - c/w treatment for UTI. CT head shows diffuse atrophy and b/l ganglia lacunar infarcts but no acute infarction or hemorrhage. - Finish course of IV Rocephin for UTI. 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 No LP was done to r/o meningial infection. 2. UTI - c/w Rocephin. - Urine culture + E. coli. - Blood cultures NTD. 3. CAD - s/p CABG. c/w home medications. 4. Chronic combine systolic and diastolic HF - resume home meds. slight blunting of R. pleural angle but otherwise no other apparent evidence of fluid overload. - c/w home medications. 5. hx CVA - resume home meds 6. HTN - Monitor BP. Hold home dose metoprolol at this time as patient was reportedly hypotensive. - Consider resuming in the next day or two if patient remains HD stable. 7. hx IBS 8. CKD 9. hx PE 10. Hypernatremia - likely 2/2 dehydration from decrease oral intake for the past few days patient has been confused. - c/w IVF support. Code status: DNR/DNI and comfort care VS, I&O, 24H, Fishbone Vital Signs/I&O Vital Signs Date Time Temp Pulse Resp B/P (MAP) Pulse Ox O2 Delivery O2 Flow Rate FiO2 05/19/19 09:30 165 18 97/65 (76) 97 Room Air 05/19/19 08:00 99.0 I&O- Last 24 Hours up to 6 AM 05/19/19 06:00 Intake Total 550 ml Balance 550 ml Laboratory Data 24H LABS Laboratory Tests 2 05/18/19 18:45: Anion Gap 12, Glomerular Filtration Rate 21.4L, Calcium Level 9.0 05/19/19 07:46: Anion Gap 9, Glomerular Filtration Rate 21.4L, Calcium Level 8.9, Nucleated Red Blood Cells % (auto) 0.0 CBC/BMP Laboratory Tests 05/18/19 18:45 05/19/19 07:46 Microbiology Microbiology 05/16/19 Blood Culture - Preliminary, Resulted No Growth after 72 hours. All specime... 05/16/19 Urine Culture - Final, Complete Escherichia Coli 05/16/19 Blood Culture - Preliminary, Resulted No Growth after 72 hours. All specime... MARS RAINEY MD May 19, 2019 17:30
[2019-05-19] MEDS: FAMOTIDINE 20 MG TAB PO SCH (21:00)
[2019-05-19] MEDS: MIRTAZAPINE 15 MG TAB PO SCH (21:00)
[2019-05-20] MEDS: LEVOTHYROXINE 50MCG TABLET (0.05MG) PO SCH (05:32)
[2019-05-20] MEDS: ISOSORBIDE MON. (IMDUR) 30 MG XR TAB PO SCH (09:00)
[2019-05-20] MEDS: ALLOPURINOL 100 MG TAB PO SCH (09:00)
[2019-05-20] MEDS: PANTOPRAZOLE 20 MG TAB PO SCH (09:00)
[2019-05-20] MEDS: busPIRone 5 MG TAB PO SCH (09:00)
[2019-05-20] MEDS: SUCRALFATE SUSP 1GM/10ML UD PO SCH (09:00)
[2019-05-20] MEDS: CLOPIDOGREL 75 MG TAB PO SCH (09:00)
[2019-05-20] MEDS: ASPIRIN 325 MG TAB PO SCH (09:00)
[2019-05-20] MEDS: QUEtiapine FUMARATE 50 MG TAB PO SCH (12:00)
[2019-05-20] MEDS: D5W/0.2% SODIUM CHLORIDE 1,000 ML IV SCH (13:26)
[2019-05-20] MEDS: cefTRIAXone SOD 1 GM in D5W MINI-BAG PLUS 50 ML IV SCH (13:26)
--- NOTE | 2019-05-20 18:10 | IPNPDOC ---
Date Seen The patient was seen on 05/20/19. Progress Note SUBJECTIVE: Patient noted to be responsive and answer some questions today. No acute events reported overnight. OBJECTIVE PHYSICAL EXAMINATION: General: responsive, confused Eyes: Normal sclera, EOMI, DARIA HENT: Atraumatic Cardiovascular: Tachycardic Pulmonary: Clear to auscultation b/l GI: Soft, nontender, nondistended Skin: Warm and dry Neuro: confused Psych: confused LABORATORY DATA, IMAGING STUDIES, MICROBIOLOGY: Please see below. ASSESSMENT AND PLAN: Patient is 88F with baseline dementia that has progressively admitted for increased agitation found to have UTI. Has been receiving treatment with Abx. Course complicated by SVT episodes and was transferred to ICU. Given that patient's mental status has not improved as hoped, plan was to perform LP and broaden antibiotics for AMS workup but health care proxy noted that patient does not want to have aggressive interventions done when she was lucid. 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 To complete Abx course for UTI only and keep patient comfortable. No more workup or escalation of therapy. Hospice consulted. VS, I&O, 24H, Eanbone Vital Signs/I&O Vital Signs Date Time Temp Pulse Resp B/P (MAP) Pulse Ox O2 Delivery O2 Flow Rate FiO2 05/19/19 09:30 165 18 97/65 (76) 97 Room Air 05/19/19 08:00 99.0 I&O- Last 24 Hours up to 6 AM 05/20/19 06:00 Intake Total 900 ml Output Total 0 ml Balance 900 ml Laboratory Data Microbiology Microbiology 05/16/19 Blood Culture - Preliminary, Resulted No Growth after 72 hours. All specime... 05/16/19 Urine Culture - Final, Complete Escherichia Coli 05/16/19 Blood Culture - Preliminary, Resulted No Growth after 72 hours. All specime... MARS RAINEY MD May 20, 2019 18:10
[2019-05-20] MEDS: FAMOTIDINE 20 MG TAB PO SCH (19:50)
[2019-05-20] MEDS: MIRTAZAPINE 15 MG TAB PO SCH (19:51)
[2019-05-21] MEDS: D5W/0.2% SODIUM CHLORIDE 1,000 ML IV SCH (02:22)
[2019-05-21] MEDS: LEVOTHYROXINE 50MCG TABLET (0.05MG) PO SCH (06:00)
[2019-05-21] MEDS: SUCRALFATE SUSP 1GM/10ML UD PO SCH ×2 (08:54→09:52)
[2019-05-21] MEDS: CLOPIDOGREL 75 MG TAB PO SCH ×2 (08:55→09:52)
[2019-05-21] MEDS: ASPIRIN 325 MG TAB PO SCH ×2 (08:55→09:51)
[2019-05-21] MEDS: ISOSORBIDE MON. (IMDUR) 30 MG XR TAB PO SCH ×2 (08:55→09:52)
[2019-05-21] MEDS: PANTOPRAZOLE 20 MG TAB PO SCH ×2 (08:55→09:52)
[2019-05-21] MEDS: ALLOPURINOL 100 MG TAB PO SCH ×2 (08:56→09:52)
[2019-05-21 09:52] VITALS: BP 112/72
[2019-05-21] MEDS: cefTRIAXone SOD 1 GM in D5W MINI-BAG PLUS 50 ML IV SCH (09:52)
--- NOTE | 2019-05-21 10:18 | DS.PDOC ---
Discharge Summary General Date of Admission May 16, 2019 at 13:19 Date of Discharge 05/21/19 Discharge Summary PROCEDURES PERFORMED DURING STAY: [None]. ADMITTING DIAGNOSES: 1. UTI 2. AMS 3. CAD 4. hx CVA 5. HTN 6. hx IBS 8. CKD 9. hx PE DISCHARGE DIAGNOSES: 1. UTI 2. AMS 3. CAD 4. hx CVA 5. HTN 6. hx IBS 8. CKD 9. hx PE COMPLICATIONS/CHIEF COMPLAINT: Urinary Tract Infection. HISTORY OF PRESENT ILLNESS: "Patient is 88F with PMH dementia, CVA, CHF, CAD s/p CABG, HTN, hx PE, IBS, CKD was sent from [facility] for reported agitation and workup for sepsis. Patient reported was hypotensive there. In ER, patient does appear to have intermittent periods of agitation but is afebrile and hemodynamically stable. She is noted to have leukocytosis and LA 2.6 however. UA suggestive of UTI. Patient is alert and communicative but only oriented to self. Denies any complaints including any pain or discomfort. Unable to obtain further history, most data obtained from previous admission documentations. " HOSPITAL COURSE: Patient was admitted with AMS found to have UTI. Was treated with IV Rocephin with no significant changes in mental status, which waxes and wanes through course of admission. Agitation persistent through almost the entire hospital stay and she also developed SVTs 2 days prior. 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 Patient is now completed course of treatment for UTI and mental status appear to have returned to baseline overnight. She is communicative and AAOX3 despite baseline level of confusion and dementia. Patient to be discharged back to [facility] to f/u PMD. DISCHARGE MEDICATIONS: Please see below. ALLERGIES: Please see below. PHYSICAL EXAMINATION ON DISCHARGE: VITAL SIGNS: Please see below. General: No acute distress, Alert, elderly with confusion but calm Eyes: Normal sclera, EOMI, DARIA HENT: Atraumatic Cardiovascular: Normal rate, normal rhythm. Pulmonary: Clear to auscultation b/l, no wheezing GI: Soft, nontender, nondistended Skin: Warm and dry Neuro: CN grossly intact. No focal deficits. Psych: oriented x 3 LABORATORY DATA: Please see below. IMAGING: CT Head- Impression: Vascular calcification, diffuse atrophy and small vessel atherosclerotic change s. Bilateral basal ganglia lacunar infarcts. No acute infarction or hemorrhage seen. CXR- Impression: Cardiomegaly post sternotomy. Slight blunting of the right lateral pleural angle. Otherwise no acute disease. ACTIVITY: [As tolerated]. DIET: Regular DISCHARGE PLAN: f/u PMD within 1 week DISPOSITION: Home. DISCHARGE INSTRUCTIONS: f/u PMD within 1 week ITEMS TO FOLLOWUP ON ON OUTPATIENT: None DISCHARGE CONDITION: [Stable]. TIME SPENT ON DISCHARGE: 32 minutes. Vital Signs/I&Os Vital Signs Date Time Temp Pulse Resp B/P (MAP) Pulse Ox O2 Delivery O2 Flow Rate FiO2 05/21/19 09:52 112/72 05/19/19 09:30 165 18 97 Room Air 05/19/19 08:00 99.0 I&O- Last 24 Hours up to 6 AM 05/21/19 06:00 Intake Total 1800 ml Balance 1800 ml Microbiology Microbiology 05/16/19 Blood Culture - Preliminary, Resulted No Growth after 72 hours. All specime... 05/16/19 Urine Culture - Final, Complete Escherichia Coli 05/16/19 Blood Culture - Preliminary, Resulted No Growth after 72 hours. All specime... Discharge Medications Scheduled Allopurinol (Allopurinol) 100 Mg Tablet, 100 MG PO DAILY, (Reported) Aspirin (Aspirin) 325 Mg Tablet, 325 MG PO DAILY, (Reported) Buspirone HCl (Buspirone HCl) 5 Mg Tablet, 5 MG PO DAILY, (Reported) Clopidogrel Bisulfate (Clopidogrel) 75 Mg Tablet, 75 MG PO DAILY, (Reported) Famotidine (Famotidine) 20 Mg Tablet, 20 MG PO QHS, (Reported) Isosorbide Mononitrate (Isosorbide Mononitrate ER) 30 Mg Tab.er.24h, 30 MG PO DAILY, (Reported) Levothyroxine Sodium (Levothyroxine Sodium) 50 Mcg Tablet, 50 MCG PO DAILY, (Reported) @ 1100 Metoprolol Succinate (Toprol Xl) 25 Mg Tab.er.24h, 25 MG PO QPM, (Reported) Mirtazapine (Remeron) 15 Mg Tablet, 15 MG PO QHS, (Reported) Pantoprazole Sodium (Pantoprazole Sodium) 20 Mg Tablet.dr, 20 MG PO DAILY, (Reported) Paricalcitol (Paricalcitol) 1 Mcg Capsule, 1 MCG PO 3XW, (Reported) MON, WED, FRI Quetiapine Fumarate (Quetiapine Fumarate) 50 Mg Tablet, 50 MG PO DAILY, (Reported) @ 1200 Sucralfate (Sucralfate) 1 Gm Tablet, 1 GM PO DAILY, (Reported) Scheduled PRN Acetaminophen (Acetaminophen) 325 Mg Tablet, 650 MG PO Q4H PRN for PAIN, (Reported) Bisacodyl (Dulcolax) 10 Mg Supp.rect, 10 MG IN DAILY PRN for CONSTIPATION, (Reported) Magnesium Hydroxide (Milk of Magnesia) 400 Mg/5 Ml Oral.susp, 2,400 MG PO DAILY PRN for CONSTIPATION, (Reported) Nitroglycerin (Nitrostat) 0.4 Mg Tab.subl, 0.4 MG SL Q5MP PRN for CHEST PAIN, (Reported) Sodium Phosphate,Bent-Dibasic (Enema) 133 Ml Enema, 1 VADIM IN DAILY PRN for CONS TIPATION, (Reported) Allergies Coded Allergies: Nut Tree (Verified Allergy, Unknown, HIVES, 03/12/19) Penicillins (Verified Allergy, Unknown, 05/16/19) and penicillin cross reactors Sulfa (Sulfonamide Antibiotics) (Verified Allergy, Unknown, 05/16/19) and sulfa cross reactors azithromycin (Verified Allergy, Unknown, 05/16/19) calcitriol (Verified Allergy, Unknown, 05/16/19) doxycycline (Verified Allergy, Unknown, 05/16/19) wheat (Verified Allergy, Unknown, 03/12/19) MARS RAINEY MD May 21, 2019 10:18
== END 2019-05-21 12:10 | DRG 690 ==
LOC: M ED 10:41 → EDBD 10:41 → M ED INP 13:19 → M PCU 14:44 → M MS5PR 05-17 03:46 → M ICU 05-19 06:53 → M MSPAV 05-19 15:57
PROVIDERS: ADMIT Student in an Organized Health Care Education/Training Program; ATTEND Student in an Organized Health Care Education/Training Program
DX: N39.0 Urinary tract infection, site not specified (principal); I50.42 Chronic combined systolic (congestive) and diastolic (congestive) heart failure; I13.0 Hypertensive heart and chronic kidney disease with heart failure and stage 1 through stage 4 chronic kidney disease, or unspecified chronic kidney disease; E87.0 Hyperosmolality and hypernatremia; N18.9 Chronic kidney disease, unspecified; K58.9 Irritable bowel syndrome, unspecified; Z86.711 Personal history of pulmonary embolism; F03.90 Unspecified dementia, unspecified severity, without behavioral disturbance, psychotic disturbance, mood disturbance, and anxiety; R41.82 Altered mental status, unspecified; Z95.1 Presence of aortocoronary bypass graft; Z86.73 Personal history of transient ischemic attack (TIA), and cerebral infarction without residual deficits; Z66 Do not resuscitate; Z79.82 Long term (current) use of aspirin; Z79.899 Other long term (current) drug therapy; Z88.0 Allergy status to penicillin; Z91.018 Allergy to other foods; Z88.2 Allergy status to sulfonamides; Z88.1 Allergy status to other antibiotic agents; I48.91 Unspecified atrial fibrillation; Z96.641 Presence of right artificial hip joint

== ENCOUNTER → 2019-05-24 | Outpatient (REF) ==
[~2019-05-24] MED LIST changes: +NITR4TASL SL; +PANT20TA2 PO; +TOPR25TA PO
--- NOTE | 2019-05-24 15:03 | REP ---
Clinical: Shortness of breath. Comparison: 05/16/2019. Findings: Mediastinum and cardiac silhouette are stable. Lung sparks demonstrate diffuse chronic COPD/emphysematous changes and scarring. Superimposed right lower lobe infiltrate/atelectasis cannot be excluded. No pneumothorax. No definite effusion. Skeletal structures intact. Impression: Chronic changes. Superimposed right lower lobe infiltrate/atelectasis cannot be excluded. Electronically Signed by Zac Gonzalez MD 05/24/2019 02:55 P
== END ==
LOC: SKLAB7 14:06
PROVIDERS: ATTEND Family Medicine
DX: R06.02 Shortness of breath (principal)

== ENCOUNTER → 2019-05-26 | Outpatient (REF) | payer MEDICARE, MEDICAID ==
[2019-05-26 07:34] LABS: BASO # 0.1 10^3/uL (0.0-0.2); BASO % 0.8 % (0.0-1.0); EOS # 5.1 10^3/uL (0.0-0.5); HEMATOCRIT 38.7 % (36.0-47.0); HEMOGLOBIN 12.5 g/dl (12.0-15.5); LYMPH # 2.3 10^3/uL (1.5-5.0); LYMPH % 14.7 % (24.0-44.0); MEAN CORPUSCULAR HEMOGLOBIN 34.1 pg (27.0-33.0); MEAN CORPUSCULAR HGB CONC 32.3 g/dl (32.0-36.5); MEAN CORPUSCULAR VOLUME 105.4 fl (80.0-96.0); MONO # 1.7 10^3/uL (0.0-0.8); MONO % 11.1 % (0.0-5.0); NEUTROPHILS # 6.2 10^3/uL (1.5-8.5); PLATELET COUNT, AUTOMATED 373 10^3/uL (150-450); RED BLOOD COUNT 3.67 10^6/uL (4.00-5.40); WHITE BLOOD COUNT 15.6 10^3/uL (4.0-10.0)
[2019-05-26 07:54] LABS: CALCIUM LEVEL 8.4 MG/DL (8.8-10.2); CREATININE FOR GFR 2.47 MG/DL (0.55-1.30); GLOMERULAR FILTRATION RATE 19.6 (>32); POTASSIUM SERUM 4.3 MEQ/L (3.5-5.1)
[2019-05-26 08:35] LABS: EOS % 32.8 % (0.0-3.0)
== END ==
LOC: SKLAB7 07:06
PROVIDERS: ATTEND Family Medicine
DX: R60.9 Edema, unspecified (principal)

== ENCOUNTER → 2019-05-31 | Outpatient (REF) | payer MEDICARE, MEDICAID ==
[2019-05-31 07:37] LABS: BASO # 0.2 10^3/uL (0.0-0.2); BASO % 0.9 % (0.0-1.0); HEMATOCRIT 41.1 % (36.0-47.0); HEMOGLOBIN 12.5 g/dl (12.0-15.5); LYMPH # 2.1 10^3/uL (1.5-5.0); LYMPH % 13.4 % (24.0-44.0); MEAN CORPUSCULAR HEMOGLOBIN 32.9 pg (27.0-33.0); MEAN CORPUSCULAR HGB CONC 30.4 g/dl (32.0-36.5); MEAN CORPUSCULAR VOLUME 108.2 fl (80.0-96.0); MONO # 1.4 10^3/uL (0.0-0.8); MONO % 8.8 % (0.0-5.0); NEUTROPHILS # 8.1 10^3/uL (1.5-8.5); PLATELET COUNT, AUTOMATED 342 10^3/uL (150-450); WHITE BLOOD COUNT 15.9 10^3/uL (4.0-10.0)
[2019-05-31 07:53] LABS: ALBUMIN 3.2 GM/DL (3.2-5.2); CALCIUM LEVEL 8.5 MG/DL (8.8-10.2); CREATININE FOR GFR 2.46 MG/DL (0.55-1.30); GLOMERULAR FILTRATION RATE 19.7 (>32); PHOSPHORUS LEVEL 4.1 MG/DL (2.5-4.9); POTASSIUM SERUM 5.3 MEQ/L (3.5-5.1)
[2019-05-31 08:25] LABS: EOS % 25.4 % (0.0-3.0)
[2019-05-31 14:46] LABS: APPEARANCE, URINE CLEAR (CLEAR); BACTERIA, URINE AUTO NEGATIVE (NEGATIVE); BILIRUBIN, URINE AUTO NEGATIVE (NEGATIVE); BLOOD, URINE BLOOD NEGATIVE (NEGATIVE); COLOR, URINE YELLOW (YELLOW); GLUCOSE, URINE (UA) AUTO NEGATIVE (NEGATIVE); KETONE, URINE AUTO NEGATIVE (NEGATIVE); LEUKOCYTE ESTERASE, URINE AUTO 1+ (NEGATIVE); NITRITE, URINE AUTO NEGATIVE (NEGATIVE); PROTEIN, URINE AUTO NEGATIVE (NEGATIVE); RBC, URINE AUTO 1 /HPF (0-3); SPECIFIC GRAVITY URINE AUTO 1.016 (1.002-1.035); SQUAMOUS EPITHELIAL CELL UR AU 0 /HPF (0-6); UROBILINOGEN, URINE AUTO 0.2 mg/dL (0.0-2.0); WBC, URINE AUTO 4 /HPF (0-3)
== END ==
LOC: SKLAB7 12:49
PROVIDERS: ATTEND Family Medicine
DX: I25.10 Atherosclerotic heart disease of native coronary artery without angina pectoris (principal); I10 Essential (primary) hypertension

== ENCOUNTER → 2019-06-01 | Outpatient (REF) | payer MEDICARE, MEDICAID ==
[2019-06-01 07:41] LABS: HEMATOCRIT 37.3 % (36.0-47.0); HEMOGLOBIN 11.7 g/dl (12.0-15.5); MEAN CORPUSCULAR HEMOGLOBIN 33.6 pg (27.0-33.0); MEAN CORPUSCULAR HGB CONC 31.4 g/dl (32.0-36.5); MEAN CORPUSCULAR VOLUME 107.2 fl (80.0-96.0); PLATELET COUNT, AUTOMATED 391 10^3/uL (150-450); RED BLOOD COUNT 3.48 10^6/uL (4.00-5.40); WHITE BLOOD COUNT 17.4 10^3/uL (4.0-10.0)
[2019-06-01 08:01] LABS: CALCIUM LEVEL 8.6 MG/DL (8.8-10.2); CREATININE FOR GFR 2.27 MG/DL (0.55-1.30); GLOMERULAR FILTRATION RATE 21.6 (>32); POTASSIUM SERUM 5.2 MEQ/L (3.5-5.1)
== END ==
LOC: SKLAB7 08:00
PROVIDERS: ATTEND Family Medicine
DX: E86.0 Dehydration (principal)

== ENCOUNTER → 2019-06-07 | Outpatient (REF) | payer MEDICARE, MEDICAID ==
[2019-06-07 08:39] LABS: BASO # 0.1 10^3/uL (0.0-0.2); EOS # 1.5 10^3/uL (0.0-0.5); HEMATOCRIT 34.6 % (36.0-47.0); HEMOGLOBIN 10.7 g/dl (12.0-15.5); LYMPH # 1.8 10^3/uL (1.5-5.0); LYMPH % 13.6 % (24.0-44.0); MEAN CORPUSCULAR HEMOGLOBIN 33.3 pg (27.0-33.0); MEAN CORPUSCULAR HGB CONC 30.9 g/dl (32.0-36.5); MEAN CORPUSCULAR VOLUME 107.8 fl (80.0-96.0); MONO # 1.2 10^3/uL (0.0-0.8); MONO % 8.9 % (0.0-5.0); NEUTROPHILS # 8.7 10^3/uL (1.5-8.5); PLATELET COUNT, AUTOMATED 349 10^3/uL (150-450); RED BLOOD COUNT 3.21 10^6/uL (4.00-5.40); WHITE BLOOD COUNT 13.3 10^3/uL (4.0-10.0)
[2019-06-07 09:03] LABS: CALCIUM LEVEL 9.1 MG/DL (8.8-10.2); CREATININE FOR GFR 2.33 MG/DL (0.55-1.30); POTASSIUM SERUM 5.4 MEQ/L (3.5-5.1)
== END ==
LOC: SKLAB7 08:00
PROVIDERS: ATTEND Family Medicine
DX: I50.9 Heart failure, unspecified (principal); R60.9 Edema, unspecified

== ENCOUNTER → 2019-06-08 | Outpatient (REF) | payer MEDICARE, MEDICAID ==
[2019-06-08 08:58] LABS: CALCIUM LEVEL 9.1 MG/DL (8.8-10.2); CREATININE FOR GFR 2.26 MG/DL (0.55-1.30); GLOMERULAR FILTRATION RATE 21.7 (>32); POTASSIUM SERUM 5.1 MEQ/L (3.5-5.1)
== END ==
LOC: SKLAB7 08:00
PROVIDERS: ATTEND Family Medicine
DX: E87.5 Hyperkalemia (principal)

== ENCOUNTER → 2019-06-15 | Outpatient (REF) | payer MEDICARE, MEDICAID ==
[2019-06-15 10:57] LABS: BASO # 0.1 10^3/uL (0.0-0.2); EOS # 1.4 10^3/uL (0.0-0.5); EOS % 13.9 % (0.0-3.0); HEMATOCRIT 38.9 % (36.0-47.0); LYMPH % 20.2 % (24.0-44.0); MEAN CORPUSCULAR HEMOGLOBIN 34.1 pg (27.0-33.0); MEAN CORPUSCULAR HGB CONC 30.8 g/dl (32.0-36.5); MEAN CORPUSCULAR VOLUME 110.5 fl (80.0-96.0); MONO # 1.7 10^3/uL (0.0-0.8); MONO % 16.7 % (0.0-5.0); NEUTROPHILS # 4.8 10^3/uL (1.5-8.5); NEUTROPHILS % 47.7 % (36.0-66.0); PLATELET COUNT, AUTOMATED 326 10^3/uL (150-450); RED BLOOD COUNT 3.52 10^6/uL (4.00-5.40); WHITE BLOOD COUNT 10.1 10^3/uL (4.0-10.0)
[2019-06-15 11:24] LABS: CALCIUM LEVEL 9.2 MG/DL (8.8-10.2); CREATININE FOR GFR 2.16 MG/DL (0.55-1.30); GLOMERULAR FILTRATION RATE 22.9 (>32); POTASSIUM SERUM 4.8 MEQ/L (3.5-5.1)
== END ==
LOC: SKLAB7 09:22
PROVIDERS: ATTEND Family Medicine
DX: I25.10 Atherosclerotic heart disease of native coronary artery without angina pectoris (principal); I10 Essential (primary) hypertension

== ENCOUNTER → 2019-06-21 | Outpatient (REF) | payer MEDICARE, MEDICAID ==
[~2019-06-21] MED LIST changes: -SIMV40TA2; +SIMV40TA20
== END ==
LOC: SKLAB7 07:00
PROVIDERS: ATTEND Family Medicine
DX: I11.9 Hypertensive heart disease without heart failure (principal); I25.10 Atherosclerotic heart disease of native coronary artery without angina pectoris

== ENCOUNTER → 2019-07-01 | Outpatient (REF) | payer MEDICARE, MEDICAID ==
[2019-07-01 11:53] LABS: BASO # 0.1 10^3/uL (0.0-0.2); EOS # 0.7 10^3/uL (0.0-0.5); EOS % 5.6 % (0.0-3.0); HEMATOCRIT 33.8 % (36.0-47.0); HEMOGLOBIN 10.9 g/dl (12.0-15.5); LYMPH # 1.5 10^3/uL (1.5-5.0); LYMPH % 13.1 % (24.0-44.0); MEAN CORPUSCULAR HGB CONC 32.2 g/dl (32.0-36.5); MEAN CORPUSCULAR VOLUME 102.4 fl (80.0-96.0); MONO # 1.5 10^3/uL (0.0-0.8); MONO % 12.4 % (0.0-5.0); NEUTROPHILS % 67.6 % (36.0-66.0); PLATELET COUNT, AUTOMATED 325 10^3/uL (150-450); WHITE BLOOD COUNT 11.8 10^3/uL (4.0-10.0)
[2019-07-01 12:13] LABS: CALCIUM LEVEL 8.6 MG/DL (8.8-10.2); CREATININE FOR GFR 2.43 MG/DL (0.55-1.30); POTASSIUM SERUM 4.8 MEQ/L (3.5-5.1)
== END ==
LOC: SKLAB7 10:33
PROVIDERS: ATTEND Family Medicine
DX: D64.9 Anemia, unspecified (principal); I10 Essential (primary) hypertension; I25.10 Atherosclerotic heart disease of native coronary artery without angina pectoris

== ENCOUNTER → 2019-07-08 | Outpatient (REF) | payer MEDICARE, MEDICAID ==
[2019-07-08 08:30] LABS: BASO # 0.1 10^3/uL (0.0-0.2); BASO % 0.4 % (0.0-1.0); EOS # 0.2 10^3/uL (0.0-0.5); EOS % 1.2 % (0.0-3.0); HEMATOCRIT 36.4 % (36.0-47.0); HEMOGLOBIN 11.8 g/dl (12.0-15.5); LYMPH # 3.1 10^3/uL (1.5-5.0); LYMPH % 21.5 % (24.0-44.0); MEAN CORPUSCULAR HEMOGLOBIN 33.3 pg (27.0-33.0); MEAN CORPUSCULAR HGB CONC 32.4 g/dl (32.0-36.5); MEAN CORPUSCULAR VOLUME 102.8 fl (80.0-96.0); MONO # 1.4 10^3/uL (0.0-0.8); MONO % 9.4 % (0.0-5.0); NEUTROPHILS # 9.7 10^3/uL (1.5-8.5); PLATELET COUNT, AUTOMATED 371 10^3/uL (150-450); RED BLOOD COUNT 3.54 10^6/uL (4.00-5.40); WHITE BLOOD COUNT 14.4 10^3/uL (4.0-10.0)
[2019-07-08 08:53] LABS: CALCIUM LEVEL 8.6 MG/DL (8.8-10.2)
== END ==
LOC: SKLAB7 07:00
PROVIDERS: ATTEND Family Medicine
DX: I25.10 Atherosclerotic heart disease of native coronary artery without angina pectoris (principal); I10 Essential (primary) hypertension

== ENCOUNTER → 2019-07-22 | Outpatient (REF) | payer MEDICARE, MEDICAID | LOC: SKLAB7 07:00 | PROVIDERS: ATTEND Family Medicine | DX: D64.9 Anemia, unspecified (principal); Z53.8 Procedure and treatment not carried out for other reasons ==

== ENCOUNTER → 2019-07-27 | Outpatient (REF) | payer MEDICARE, MEDICAID ==
--- NOTE | 2019-07-27 10:53 | REP ---
Clinical: Left foot pain. Technique: AP, lateral, bilateral oblique views of the left foot. Findings: Lateral view suggests soft tissue swelling. Osteopenia and generalized age-related changes are appreciated. No acute fracture or dislocation. Peripheral vascular disease noted. Impression: Swelling. No acute fracture or dislocation. Electronically Signed by Zac Gonzalez MD 07/27/2019 10:44 A
== END ==
LOC: SKLAB7 09:38
PROVIDERS: ATTEND Family Medicine
DX: M25.572 Pain in left ankle and joints of left foot (principal)

== ENCOUNTER → 2019-08-16 | Outpatient (CLI) | payer MEDICARE, MEDICAID ==
--- NOTE | 2019-08-16 17:36 | REP ---
Bilateral lower extremity arterial duplex ultrasound: Right lower extremity: Peak Systolic Phasicity Velocity RDA 51.8 monophasic Profunda 33.8 monophasic SFA prox 35.3 monophasic SFA mid 58.1 monophasic SFA dist 59.6 monophasic Pop 70.6 monophasic BRITANY prox 22.1 monophasic Tib/P tr 127.5 monophasic WEBBING TACKER pr 33.3 monophasic WEBBING TACKER dst 16.0 monophasic BRITANY dst 69.8 monophasic EIA 52.0 monophasic Left lower extremity: Peak Systolic Phasicity Velocity RDA 81.2 triphasic Profunda 61.8 biphasic SFA prox 66.2 triphasic SFA mid 42.7 monophasic SFA dist 85 monophasic Pop 13.6 monophasic BRITANY prox 8.9 monophasic Tib/P tr 18.7 monophasic WEBBING TACKER pr occluded -- WEBBING TACKER dst 6.2 monophasic BRITANY dst 5.7 monophasic EIA 81.9 triphasic Right: There is monophasic flow throughout . There is severe plaque throughout with multiple areas of narrowing. There is 2:1 stenosis at the tibioperoneal trunk. The right distal WEBBING TACKER is occluded with trickle flow post occlusion. Left: There is severe plaque throughout. The proximal WEBBING TACKER could not be visualized, occluded versus shadowed by calcified plaque. Trickle flow is identified in the distal WEBBING TACKER. There is also trickle flow in the distal BRITANY. The TERESO could not be formed on the right on the left because of patient movement and shaking. Electronically Signed by Ilan Ahumada MD 08/16/2019 05:28 P
== END ==
LOC: M RAD 12:46
PROVIDERS: ATTEND Family Medicine
DX: M79.661 Pain in right lower leg (principal); M79.662 Pain in left lower leg; R22.43 Localized swelling, mass and lump, lower limb, bilateral; R09.89 Other specified symptoms and signs involving the circulatory and respiratory systems